=== PATIENT | male | born 1940 | race Caucasian/White ===

== ENCOUNTER 2018-03-27 11:01 | Observation (INO) | payer MEDICARE, SELFPAY ==
[2018-03-21 15:09] LABS: Hematocrit 40.8 % (40-54); Hemoglobin 13.6 g/dl (13.0-16.5); Mean Corp Hgb Conc 33.3 g/gl (32-36); Mean Corpuscular Hgb 29.1 pg (27.0-32.0); Mean Corpuscular Volume 87.2 fL (80-94); Mean Platelet Vol. 10.3 fl (6.2-12.0); Platelet Count 203 K/mm3 (150-450); RBC Distribution Width CV 12.9 % (11.6-14.6); RBC Distribution Width SD 41.2 fl (35.1-43.9); Red Blood Count 4.68 M/mm3 (4.6-6.2); White Blood Count 6.3 K/mm3 (4.4-11.0)
[2018-03-21 15:15] LABS: Scan Indicated on CBC? Y/N NO
[2018-03-21 15:44] LABS: Anion Gap 8 (5-15); BUN 23 mg/dL (7-18); BUN/Creat Ratio 18.7 RATIO (10-20); Calcium,Total 8.5 mg/dL (8.5-10.1); Chloride 108 mmol/L (98-107); Creatinine, Serum 1.23 mg/dL (0.70-1.30); EST Glomerular Filtration Rate 61 mL/min (>60); Est Glom Filt Rate - Afr Amer 73 mL/min (>60); Glucose 124 mg/dL (74-106); Sodium Level 143 mmol/L (136-145)
[2018-03-27] VITALS (11 sets, daily range): BP systolic 121–148; BP diastolic 61–76; PULSE 52–67; RESP 16–18; TEMP 36.4–37.4; O2SAT 92–99; BMI 32.3
[2018-03-27] MEDS: Cefazolin 2 GM in 0.9% Normal Saline 100 ML IV (10:25)
[2018-03-27] MEDS: Bupivacaine Mpf 0.5% 30 ML VIAL (10:25)
[2018-03-27] MEDS: BUPIVACAINE LIPOSOME/PF 20 ML VIAL OPERA.SITE (10:49)
--- NOTE | 2018-03-27 11:05 | PCM.OPRPT ---
Problem List (1) Recurrent ventral incisional hernia Status: Acute Report of Operation Date of Procedure: 03/27/18 Pre-Operative Diagnosis: Recurrent epigastric ventral incisional hernia Post-Operative Diagnosis: Recurrent epigastric ventral incisional hernia. Extensive intra-abdominal adhesions Surgery/Procedure Performed:: Extensive laparoscopic lysis of adhesions. Laparoscopic ventral incisional herniorrhaphy with Ventra lite ST mesh reference #[id number]. Lot number [id number]. Expiry date 12/15/2018. Secure strap lot number [id number] expiry date 12/08/2019. Secure strap lot number [id number] expiry date 12/08/2019 Description of Surgical Findings:: Timeout and informed consent was obtained. 77-year-old gentleman taken the operative room. He was placed on the table. He had one general endotracheal intubation anesthesia. The abdomen was sterilely prepped draped. Ioban drape was used as well. Ancef 2 g given intravenous preoperatively. 0.5% Marcaine was used as local anesthetic. Skin sites were pre-anesthetized. 23 cc was used. At the end of the case I performed a tap block using Exparel diluted to 60 cc with saline. A transverse incision was made directly overlying the palpable mass sharp dissection carried down through subcu tissue hernia sac was encountered and was sized to his omentum within this was freed and then it became apparent upon palpation that were extensive intra-abdominal adhesions. I placed a Wright catheter. I placed 3 Fusselman reports in the left abdomen and then later on to family reports a right abdomen there were extensive adhesions of omentum to the anterior abdominal wall and evidence of the previous supraumbilical mesh repair. There was some transverse colon that was identified slightly elevated but fortunately not densely adherent to the abdominal wall. Using a harmonic scalpel extensive laparoscopic lysis of adhesions ensued. Lysis of adhesions time 60 minutes. After extensively lysing adhesions had the omentum completely freed from the abdominal wall. I could see the previous mesh repair in the supraumbilical area. That appear to be intact the new defect was superior to it difficult to decipher the extent of the weakness. I elected to utilize a ventral light ST mesh, 19.8 x 22.9 cm. 4 corner sutures of 2-0 Prolene was placed. The mesh was furled and placed through the S sign. It was unfurled. Using a GraNee needle I piercing of the mesh up to the abdominal wall. I then secured the periphery of the mesh with secure strap. A total of 2 separate units were utilized. This allowed me to secure the periphery and to complete the inner portions of the mesh to inhibit seroma formation. Prior to completely fixing the mesh I remove the us on an close that fascial incision with several interrupted simple 0 Nurolon stitches. There was good coverage by the mesh good approximation. I then irrigated the mesh with saline the activated surface. I then under laparoscopic visualization performed a tap block this was performed at the superior edge of the mesh and then in the left subcostal and left upper quadrant abdominal areas. I visualized what I felt was the transversalis fascia pulled the needle back slightly to infiltrate the junction of the transversalis and the obliques. A total of 60 cc of the x-ray was utilized in its diluted quantity. I inspected and noted that the omentum was in good position the mesh was in good position trochars were removed under visualization. The abdomen was allowed to deflate his CO2. Skin edges approximated up to 4 Monocryl subdermal stitches. Steri-Strips Telfa and OpSite dressings applied. Sponge instrument and needle counts were reported to the surgeon to be correct. Blood loss was minimal. He tolerated the procedure well was taken to the recovery area in satisfactory condition. No apparent complication. Specimens none. Drains none. Blood loss minimal. Keyon Marquez M.D., F.A.C.S. Type of Anesthesia:: General Anesthesiologist: Prasanna Gibbons
--- NOTE | 2018-03-27 11:13 | OP.PCM_ITS ---
Problem List (1) Recurrent ventral incisional hernia Status: Acute Report of Operation Date of Procedure: 03/27/18 Pre-Operative Diagnosis: Recurrent epigastric ventral incisional hernia Post-Operative Diagnosis: Recurrent epigastric ventral incisional hernia. Extensive intra-abdominal adhesions Surgery/Procedure Performed:: Extensive laparoscopic lysis of adhesions. Laparoscopic ventral incisional herniorrhaphy with Ventra lite ST mesh reference #[id number]. Lot number [id number]. Expiry date 12/15/2018. Secure strap lot number [id number] expiry date 12/08/2019. Secure strap lot number [id number] expiry date 12/08/2019 Description of Surgical Findings:: Timeout and informed consent was obtained. 77-year-old gentleman taken the operative room. He was placed on the table. He had one general endotracheal intubation anesthesia. The abdomen was sterilely prepped draped. Ioban drape was used as well. Ancef 2 g given intravenous preoperatively. 0.5% Marcaine was used as local anesthetic. Skin sites were pre-anesthetized. 23 cc was used. At the end of the case I performed a tap block using Exparel diluted to 60 cc with saline. A transverse incision was made directly overlying the palpable mass sharp dissection carried down through subcu tissue hernia sac was encountered and was sized to his omentum within this was freed and then it became apparent upon palpation that were extensive intra-abdominal adhesions. I placed a Wright catheter. I placed 3 Fusselman reports in the left abdomen and then later on to family reports a right abdomen there were extensive adhesions of omentum to the anterior abdominal wall and evidence of the previous supraumbilical mesh repair. There was some transverse colon that was identified slightly elevated but fortunately not densely adherent to the abdominal wall. Using a harmonic scalpel extensive laparoscopic lysis of adhesions ensued. Lysis of adhesions time 60 minutes. After extensively lysing adhesions had the omentum completely freed from the abdominal wall. I could see the previous mesh repair in the supraumbilical area. That appear to be intact the new defect was superior to it difficult to decipher the extent of the weakness. I elected to utilize a ventral light ST mesh, 19.8 x 22.9 cm. 4 corner sutures of 2-0 Prolene was placed. The mesh was furled and placed through the S sign. It was unfurled. Using a GraNee needle I piercing of the mesh up to the abdominal wall. I then secured the periphery of the mesh with secure strap. A total of 2 separate units were utilized. This allowed me to secure the periphery and to complete the inner portions of the mesh to inhibit seroma formation. Prior to completely fixing the mesh I remove the us on an close that fascial incision with several interrupted simple 0 Nurolon stitches. There was good coverage by the mesh good approximation. I then irrigated the mesh with saline the activated surface. I then under laparoscopic visualization performed a tap block this was performed at the superior edge of the mesh and then in the left subcostal and left upper quadrant abdominal areas. I visualized what I felt was the transversalis fascia pulled the needle back slightly to infiltrate the junction of the transversalis and the obliques. A total of 60 cc of the x-ray was utilized in its diluted quantity. I inspected and noted that the omentum was in good position the mesh was in good position trochars were removed under visualization. The abdomen was allowed to deflate his CO2. Skin edges approximated up to 4 Monocryl subdermal stitches. Steri-Strips Telfa and OpSite dressings applied. Sponge instrument and needle counts were reported to the surgeon to be correct. Blood loss was minimal. He tolerated the procedure well was taken to the recovery area in satisfactory condition. No apparent complication. Specimens none. Drains none. Blood loss minimal. Keyon Marquez M.D., F.A.C.S. Type of Anesthesia:: General Anesthesiologist: Prasanna Gibbons
[2018-03-27] MEDS: Lactated Ringers 1,000 ML 60 ML IV (12:58)
[2018-03-27] MEDS: Pantoprazole Sodium 40 MG Tablet PO (17:21)
[2018-03-27] MEDS: HYDROcodone Bitartrate/Apap 5/325 Tablet PO ×2 (18:55→23:29)
--- NOTE | 2018-03-27 20:09 | PCM.PN.BLA ---
Progress Note 77-year-old gentleman. Status post extensive laparoscopic lysis of adhesions and lap scopic ventral incisional hernia repair earlier today. He is doing well. He is more comfortable. He has been able to ambulate a short distance. Some slight burping. He is tolerating clear liquids. He is voiding well. No distinct flatus. Physical exam Abdomen softly distended. Laparoscopic incisions are clean. We will encourage mobilization. Continue with medical management. Hopeful discharge tomorrow. Keyon Marquez M.D., F.A.C.S.
[2018-03-27] MEDS: Atorvastatin Calcium 10 MG Tablet PO (22:39)
[2018-03-28] MEDS: HYDROcodone Bitartrate/Apap 5/325 Tablet PO ×2 (04:09→09:09)
[2018-03-28 05:30] VITALS: BP 149/71; PULSE 60; RESP 16; TEMP 36.4; O2SAT 98
--- NOTE | 2018-03-28 05:38 | PCM.PN.SRG ---
Patient Problems: Active and Suspected Problems (Last Updated 02/28/18 @ 10:42 by Diandra Hillman) Recurrent ventral incisional hernia (Acute) Subjective: Pt is progressing very well. Pos. flatus - Physical Exam General: Alert, Oriented x3, Cooperative, No apparent distress Abdomen: Soft, Non Tender, Hypoactive Bowel Sounds, Distended Vital Signs Temp Pulse Resp BP Pulse Ox 98.8 F 67 16 138/72 H 97 03/27/18 23:20 03/27/18 23:20 03/27/18 23:20 03/27/18 23:20 03/27/18 23:20 Oxygen Flow Rate (L/min) 2 Oxygen Delivery Method Room Air Weight: 212 lb 4.882 oz Body Mass Index (BMI) 32.3 Intake and Output for Last 24 Hours 03/26/18 03/27/18 03/28/18 23:59 23:59 23:59 Intake Total 2319 / 4179 577 / 577 Balance 2499 / 2494 577 / 577 Medical Necessity - Tobacco Use Smoking Status: Never smoker Assessment/Plan All Active Problems (Last Updated 02/28/18 @ 10:42 by Diandra Hillman) Recurrent ventral incisional hernia (Acute) Good progress Will advance diet and discharge
[2018-03-28] MEDS: Enoxaparin 40 MG/0.4 ML Syringe SC (05:45)
--- NOTE | 2018-03-28 06:17 | PCM.DC.HER ---
Discharge Diet: Light diet - advance as tolerated Discharge Activity: Return to Normal Activity, May Not Drive - for 2-3 days or while taking narcotic pain meds., May Shower - with the bandage in place 1-2 days after surgery. Lifting Restrictions: 20 pounds for 8 weeks. Additional Activity Instructions:: Climbing stairs is fine, walking is encouraged. Sitting in bed may be uncomfortable. Sitting up using your lateral muscles (sitting up sideways) is usually more comfortable. Do not drive, work heavy equipment of sign legal documents for 24 hours. If your hernia repair was an ingunial repair, you may have scrotal swelling, an ice pack and/or athletic support can provide more comfort. Pain medications may cause nausea, you should typically eat light foods as you take your pain medications. Pain medications may also cause constipation. If you have difficulty with this, discuss with your doctor. Call your doctor if your incision/area has: Continuous Slow Oozing, Sudden Increased Bleeding, Increased Pain/ Swelling, Increased Redness, Foul Smelling Discharge Call your doctor if you observe: Fever of 101 or Higher Suture Line Care: Avoid Pulling/Pushing, Avoid Pinching/Bending Change Dressing in (Days):: 3 - Leave steri-strips for 1 week. May protect with a guaze bandaid. Cleanse incision/area with: Keep Dressing Clean & Dry Allergies/Adverse Reactions: Allergies Tetanus Vaccines and Toxoid [Tetanus Vaccines & Toxoid] Allergy (Verified 03/27/18 07:52) Swelling Medications to take at Discharge Omeprazole [Prilosec] 40 mg PO DINNER 06/27/16 Triamterene 37.5MG/Hctz 25MG [Dyazide (G)] 1 cap PO DAILY 06/27/16 atorvastatin 10 mg tablet 10 mg PO QHS 02/28/18 Hydrocodone Bitart/Apap 5-325 [[place] 5MG-325MG] 1 tablet PO Q6H PRN PRN 3 Days #10 tablet 03/27/18 The following prescriptions were given: Hydrocodone Bitart/Apap 5-325 [[place] 5MG-325MG] 1 tablet PO Q6H PRN PRN 3 Days #10 tablet PRN Reason: Pain Primary Care Physician: Matthew Cobos MD [Primary Care Provider] - Test Results: Test results from this visit will be discussed in further detail at your follow-up appointment, if applicable. Please Follow Up With: Bri Metcalf PA-C - [phone] When: 10 days
[2018-03-28] MEDS: Polyethylene Glycol 3350 17 GM PACKET PO (06:31)
[2018-03-28 09:05] VITALS: BP 141/60; PULSE 72; RESP 18; TEMP 36.8; O2SAT 95
== END 2018-03-28 10:20 | disposition home or self-care (01) ==
LOC: MS3 03-28 07:33
PROVIDERS: Admitting Provider Surgery; Family Provider Internal Medicine; PCP Internal Medicine; Visit Provider Surgery
PROC: 0WQF4ZZ Repair Abdominal Wall, Percutaneous Endoscopic Approach (ICD-10-PCS; CPT 49329; principal; 2018-03-27 08:55)
DX: K43.2 Incisional hernia without obstruction or gangrene (principal); K66.0 Peritoneal adhesions (postprocedural) (postinfection); Z79.899 Other long term (current) drug therapy; I10 Essential (primary) hypertension; M19.90 Unspecified osteoarthritis, unspecified site; K21.9 Gastro-esophageal reflux disease without esophagitis; E78.5 Hyperlipidemia, unspecified
CPT/HCPCS: 00752; 49329; 49656; 36415; 80048; 85027; 96372; 99218; J7120; C1781; G0378; G0379; J2405

== ENCOUNTER → 2018-07-18 14:08 | Outpatient (CLI) | payer MEDICARE, SELFPAY ==
--- NOTE | 2018-07-18 14:24 | EKG12_ITS ---
Test Reason : PREOP Blood Pressure : / mmHG Vent. Rate : 059 BPM Atrial Rate : 059 BPM P-R Int : 186 ms QRS Dur : 094 ms QT Int : 420 ms P-R-T Axes : -09 -06 017 degrees QTc Int : 415 ms Sinus bradycardia Otherwise normal ECG Confirmed by LETY ROBLES, KESHAWN ([id number]), state editor CHAGO BAPTISTE ([id number] on 07/19/2018 2:32:04 PM Referred By: Norberto Lebron Confirmed By:KESHAWN DAVIDSON MD
[2018-07-18 14:34] LABS: Hematocrit 41.9 % (40-54); Mean Corp Hgb Conc 33.4 g/gl (32-36); Mean Corpuscular Hgb 29.1 pg (27.0-32.0); Mean Corpuscular Volume 87.1 fL (80-94); Mean Platelet Vol. 9.3 fl (6.2-12.0); Platelet Count 210 K/mm3 (150-450); RBC Distribution Width SD 41.5 fl (35.1-43.9); Red Blood Count 4.81 M/mm3 (4.6-6.2); White Blood Count 6.6 K/mm3 (4.4-11.0)
[2018-07-18 14:37] LABS: Scan Indicated on CBC? Y/N NO
[2018-07-18 14:49] LABS: Anion Gap 5 (5-15); BUN 27 mg/dL (7-18); BUN/Creat Ratio 23.5 RATIO (10-20); Calcium,Total 8.5 mg/dL (8.5-10.1); Chloride 106 mmol/L (98-107); Creatinine, Serum 1.15 mg/dL (0.70-1.30); EST Glomerular Filtration Rate 66 mL/min (>60); Est Glom Filt Rate - Afr Amer 79 mL/min (>60); Glucose 119 mg/dL (74-106); Potassium 4.1 mmol/L (3.5-5.1); Sodium Level 139 mmol/L (136-145)
--- OUTSIDE RECORDS SUMMARY | 2018-09-12 19:18 | XMS RPT_ITS ---
:1940 Author Organization OHIP Care Team Providers Name Role Phone TATY WILLAMS (LOAD PLANNER) Attending Unavailable MATTHEW CARRILLO Referring Unavailable TAYT WILLAMS (LOAD PLANNER) Referring Unavailable MATTHEW CARRILLO Attending Unavailable MATTHEW CARRILLO Referring Unavailable MATTHEW CARRILLO Referring Unavailable RITA JUÁREZ (RING FACER) Attending Unavailable MATTHEW CARRILLO Referring Unavailable FERNANDO CANO Admitting Unavailable FERNANDO CANO Attending Unavailable RITA JUÁREZ (RING FACER) Referring Unavailable OLDER, TATY (LOAD PLANNER) Attending Unavailable OLDER, TATY (LOAD PLANNER) Referring Unavailable CARRILLO, JERARDO Attending Unavailable OLDER, TATY (LOAD PLANNER) Attending Unavailable OLDER, TATY (LOAD PLANNER) Referring Unavailable OLDER, TATY (LOAD PLANNER) Referring Unavailable OLDER, TATY (LOAD PLANNER) Referring Unavailable Cebul, Keyon Attending Unavailable Carrillo, Matthew Referring Unavailable Carrillo, Matthew Primary Care Unavailable Cebul, Keyon Attending Unavailable Cebul, Keyon Referring Unavailable Carrillo, Matthew Primary Care Unavailable Cebul, Keyon Admitting Unavailable Bri Metcalf PA-C Attending Unavailable Carrillo, Matthew Referring Unavailable Carrillo, Matthew Primary Care Unavailable Cezulema, Keyon Attending Unavailable Knpam, Norberto Attending Unavailable Norberto Lebron Referring Unavailable Carrillo, Matthew Primary Care Unavailable PROBLEMS PROBLEMS DATE TYPE CONDITION / CODE ATTENDING STATUS SOURCE 07/18/2018 Unknown Z01.818 - Encounter oNrberto Lebron Active [facility] for other [facility] preprocedural Hospital examination / Repository Z01.818(ICD-10) 03/28/2018 Unknown G89.18 - Other acute Cebul, Keyon Active [facility] postprocedural pain Community / G89.18(ICD-10) Hospital Repository 05/09/2018 Unknown K43.2 - Incisional Cebul, Keyon Active [facility] hernia without Community obstruction or Hospital gangrene / Repository K43.2(ICD-10) 05/09/2018 Unknown K66.0 - Peritoneal Cebul, Keyon Active [facility] adhesions Community (postprocedural) Hospital (postinfection) / Repository K66.0(ICD-10) 03/21/2018 Active Cough / R05(ICD-10) NA Active [facility] Main [place] Repository 12/14/2017 Active Mobley's esophagus CANO, 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, [facility] Clinic Main unspecified / [place] K22.719(ICD-10) Repository 08/22/2011 Active Hyperlipidemia, NA Active [place] unspecified / Clinic Main E78.5(ICD-10) [place] Repository 11/09/2017 Active 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, Clinic Main unspecified / [place] N28.9(ICD-10) Repository 11/09/2017 Active Impaired fasting Active [place] glucose / Clinic Main R73.01(ICD-10) [place] Repository 08/09/2017 Active Localized edema / NA Active [place] R60.0(ICD-10) Clinic Main [place] Repository 08/09/2017 Active Pain in right lower NA Active [place] leg / Clinic Main M79.661(ICD-10) [place] Repository PROCEDURES PROCEDURES No Procedure Records FoundRESULTS RESULTS 12 LEAD ELECTROCARDIOGRAM Observed: 07/19/2018 Status: F Source: [place] 2:32 PM [facility] REPOSITORY [facility] Cardiovascular Services [address] [place] [address] 12 Lead EKG 07/18/18 1437 MR#: [id number] Acct: [id number] Name: KEVEN SALMERON Rep #: [id number] : 1940 78 From: Liam Arzola MD Attending Dr: Norberto Lebron DO Status: REG CLI Ordering Dr: Norberto Lebron DO Date: 07/18/18 Location: LAB Sex: M C Admitted: Test Reason : PREOP Blood Pressure : / mmHG Vent. Rate : 059 BPM Atrial Rate : 059 BPM P-R Int : 186 ms QRS Dur : 094 ms QT Int : 420 ms P-R-T Axes : -09 -06 017 degrees QTc Int : 415 ms Sinus bradycardia Otherwise normal ECG Confirmed by LETY ROBLES, LIAM ([id number]), video tape editor CHAGO BAPTISTE ([id number]) on 07/19/2018 2:32:04 PM Referred By: Norberto Lebron Confirmed By:LIAM ARZOLA MD 07/19/18 1432 Date Liam Arzola MD CC: Norberto Lebron DO; Matthew Carrillo MD Signed CBC-COMPLETE BLOOD CNT Collected: 07/18/2018 Status: F Source: [facility] NO DIFF 2:13 PM [facility] REPOSITORY TYPE CODE TESTS RESULT OUT OF RANGE REFERENCE UNITS LAB L100.1000 4.4-11.0 K/mm3 Normal WBC 6.6 LAB L100.1200 4.6-6.2 M/mm3 Normal RBC 4.81 LAB L100.1300 13.0-16.5 g/dl Normal HGB 14.0 LAB L100.1400 40-54 % Normal HCT 41.9 LAB L100.1500 80-94 fL Normal MCV 87.1 LAB L100.1600 27.0-32.0 pg Normal MCH 29.1 LAB L100.1700 32-36 g/gl Normal MCHC 33.4 LAB L100.1810 11.6-14.6 % Normal RDW CV 13.0 LAB L100.1820 35.1-43.9 fl Normal RDW SD 41.5 LAB L100.1900 150-450 K/mm3 Normal PLT 210 LAB L100.2000 6.2-12.0 fl Normal MPV 9.3 Performed By: #### L100.0500 #### [facility] [address] [place], [address] BASIC METABOLIC Collected: 07/18/2018 Status: F Source: [place] PROFILE (BMP) 2:13 PM [facility] REPOSITORY TYPE CODE TESTS RESULT OUT OF RANGE REFERENCE UNITS LAB L501.0100 74-106 mg/dL High GLU 119 Result Comment: Fasting Glucose result from 100 to 125 mg/dL suggests IMPAIRED HOMEOSTASIS per A.D.A. criteria. Please note revised GLUCOSE reference range effective 2017. LAB L501.1000 7-18 mg/dL High BUN 27 LAB L501.1100 0.70-1.30 mg/dL Normal CREAT,SERUM 1.15 Result Comment: The validity of the calculated GFR AND GFRAA in patients over 70 years has not been determined. Clinical correlation is essential. LAB L501.1110 >60 mL/min Normal EST GFR 66 Result Comment: Non- GFR Calc LAB L501.1115 >60 mL/min Normal EST GFR - AA 79 Result Comment: GFR Calc LAB L501.1300 10-20 RATIO High BUN/CRE 23.5 LAB L501.2200 8.5-10.1 mg/dL CA Normal 8.5 LAB L501.5300 136-145 mmol/L NA Normal 139 LAB L501.5600 3.5-5.1 mmol/L K Normal 4.1 LAB L501.5900 98-107 mmol/L CL Normal 106 LAB L501.6100 21.0-32.0 mmol/L Normal CO2 28.0 LAB L501.6200 5-15 Normal GAP 5 Performed By: #### L500.2500 #### [facility] [address] [place], [address] PROGRESS Observed: 07/15/2018 Status: COMPLETED Source: [place] 1:59 PM [facility] REPOSITORY HNO ID: [id number] Author: Taty (Andrew) Older Service: (none) Author Type: Nurse Practitioner Type: Progress Notes Filed: 07/15/2018 2:29 PM Note Text: CC: Patient presents with: chronic cough HPI Keven Salmeron is a 78 year old male who presents today for chronic cough since February. Initially seen on 03/21 for this. Chest x- ray negative. Cough attributed to post nasal drip, started on Flonase. At follow-up with PCP cough had not improved. Diagnosed with bronchitis with bronchospasm and prescribed Singulair and Albuterol. Minor improvement with Singulair. Used Albuterol inhaler one time before going to bed with minor improvement. Today patient reports cough continues, productive with clear sputum. Worse at night, especially if he were to eat late in the evening. Positive for wheezing that is getting worse, shortness of breath with moderate exertion and post nasal drainage. Propping himself up on two pillows to sleep does help somewhat. No history of seasonal or environmental allergies. No itchy/watery eyes or sore throat. No history of asthma or respiratory disease History of GERD and Mobley's esophagus. No heartburn/reflux symptoms other than worsening cough if he eats too late at night. Has been on Prevacid for years. Has never smoked. No second hand smoke exposure. No environmental exposures. No cardiac history REVIEW OF SYSTEMS General: no fevers, no chills, no night sweats, no recurrent infections, no change in energy and no significant changes in weight Respiratory: no hemoptysis Cardiovascular: no chest pain, no chest pressure, no palpitations, no swelling and no decrease in exercise tolerance PAST MEDICAL HISTORY Diagnosis Date - Mobley's esophagus 05/05/2010 - Closed fracture of shaft of metacarpal bone(s) 09/18/2011 - DIVERTICULOSIS COLON - NO HEMORRHAGE 11/28/2005 - Edema 03/13/2006 - Esophageal reflux 10/16/2008 - Esophagitis, unspecified - Essential hypertension 04/25/2016 - GENERAL OSTEOARTHROSIS 1998 Left knee. Arthroscopy 1998. - INT HEMORRHOID W/O COMPL 11/06/2005 Restarted Proctocream in - - LEG VARICOSITY W INFLAM 03/13/2006 - Osteoarthritis of left knee 04/25/2016 - POLYP COLON 11/28/2005 - Snoring - Stricture and stenosis of esophagus PAST SURGICAL HISTORY Procedure Laterality Date - APPENDECTOMY 1955 - COLONOSCOP W/ OR W/O [facility] SPEC 09/06/10 - COLONOSCOP W/ OR W/O [facility] SPEC N/A 11/23/2016 - COLONOSCOPY W/BX 11/27/05 Two small polyps, diverticulosis - EGD W/O OR W/BRUSH/WASH 01/22/2004 EGD - EGD W/O OR W/BRUSH/WASH 02/02/2014 EGD - EGD W/O OR W/BRUSH/WASH 02/16/14 EGD repeat 2 years - EGD W/O OR W/BRUSH/WASH 12/02/2015 EGD repeat 1 year - EGD W/O OR W/BRUSH/WASH 12/24/2017 EGD - EGD W/REM FB STOMACH/DUOD 01/14/07 [facility] ER - ESOPH W/O [facility] SPEC BALLOON DIL 09/06/10 with bx - HEMORRHOIDECT INTER/EXTER SIMP 11/30/05 - KNEE SCOPE,DIAGNOSTIC 1998 Arthroscopy, knee, Left - LX REPAIR RECURRENT VENTRAL HERNIA 03/27/2018 - DE ANESTH,REPAIR UPPER ABD HERNIA NOS 2001 - TOTAL KNEE REPLACEMENT Left 07/10/2016 Knee replacement, total - VASECTOMY 02/24/09 ALLERGIES Tetanus Vaccines And Toxoid MEDICATIONS albuterol HFA (PROVENTIL HFA, VENTOLIN HFA) 90 mcg/actuation inhaler Inhale 2 Puffs as instructed every 6 hours as needed (cough, wheezing). atorvastatin (LIPITOR) 10 mg tablet Take 1 tablet by mouth daily at bedtime. For cholesterol. triamterene-hydrochlorothiazide (DYAZIDE) 37.5-25 mg per capsule Take 1 capsule by mouth once daily. Omeprazole (PRILOSEC) 40 mg capsule Take 1 capsule by mouth once daily. Compression Knee Highs KNEE HIGH COMPRESSION STOCKINGS 20- 30 MM HG. DX: ICD9: 454.1, ICD10: I83.12, I83.11. ICD9: 459.30, ICD10: I87.301 montelukast (SINGULAIR) 10 mg tablet Take 1 tablet by mouth daily at bedtime. FAMILY HISTORY Problem Relation Age of Onset - Stroke Father - Coronary Artery Disease Father at age 84 - Hypertension Mother age 92, natural causes. - other (Parkinsons) Brother age 84 Social History Substance Use Topics - Smoking status: Never Smoker - Smokeless tobacco: Never Used - Alcohol use Yes Comment: 2 glasses/month PHYSICAL EXAM BP 150/88 Pulse 71 Temp 36.4 ?C (97.6 ?F) (Temporal Artery) Resp 16 Wt 102.1 kg (225 lb) SpO2 96% BMI 34.21 kg/m? General Appearance: well appearing, in no acute distress, alert Eyes: conjunctiva pink and moist, no icterus, sclera white, non-injected Ears: external ears normal to inspection and palpation, canals clear, Left tympanic membrane normal. , Right tympanic membrane normal Nose/sinus: Nares normal. Septum midline. Mucosa normal. No drainage., No sinus tenderness Neck: Neck supple, No adenopathy Oropharynx: lips normal without lesions, tongue midline and normal, soft palate, uvula, and tonsils normal Lymph nodes: No supraclavicular lymphadenopathy Lungs: lungs clear to auscultation. No wheezing, rhonchi, rales Heart: RRR without murmur, gallop, or rubs. No ectopy Ext: Trace pitting edema BLE, good distal pulses ASSESSMENT/PLAN: 1. Chronic cough - ICD9: 786.2, ICD10: R05 (primary diagnosis) Differential diagnoses includes post nasal drip secondary to environmental allergies, cough variant asthma, GERD Resume Singulair and Flonase. Albuterol at bedtime and as needed Work-up with: - SPIROMETRY - BASELINE AND POST DILATOR - LUNG VOLUMES - LUNG DIFFUSION CAPACITY (DLCO) CONSULT TO ENT for further evaluation and recommendations Follow-up pending results of work-up 2. Post-nasal drip - ICD9: 784.91, ICD10: R09.82 As above - CONSULT TO ENT Prescription instructions reviewed with patient as applicable. Potential red flag symptoms discussed with the patient. Reviewed appropriate action plan to take if red flag symptoms occur. Patient agreeable to treatment plan. Taty Willams APRN.LOAD PLANNER CNOV Observed: 07/15/2018 Status: COMPLETED Source: [place] 1:40 PM [facility] [place] REPOSITORY Office Visit (INTMWS) KEVEN SALMERON ([id number]) 1940 M Date Time Provider Department 07/15/18 1:40 PM [facility] (ANDREW) INTMWS During your visit today, we recorded the following information about you: Temperature Pulse Respiration Blood pressure 97.6 degrees 71/minute 16/minute 150/88 Weight 102.1 kg Taty Willams APRN.CNP 07/15/2018 2:29 PM Signed CC: Patient presents with: chronic cough HPI Keven Salmeron is a 78 year old male who presents today for chronic cough since February. Initially seen on 03/21 for this. Chest x-ray negative. Cough attributed to post nasal drip, started on Flonase. At follow- up with PCP cough had not improved. Diagnosed with bronchitis with bronchospasm and prescribed Singulair and Albuterol. Minor improvement with Singulair. Used Albuterol inhaler one time before going to bed with minor improvement. Today patient reports cough continues, productive with clear sputum. Worse at night, especially if he were to eat late in the evening. Positive for wheezing that is getting worse, shortness of breath with moderate exertion and post nasal drainage. Propping himself up on two pillows to sleep does help somewhat. No history of seasonal or environmental allergies. No itchy/watery eyes or sore throat. No history of asthma or respiratory disease History of GERD and Mobley's esophagus. No heartburn/reflux symptoms other than worsening cough if he eats too late at night. Has been on Prevacid for years. Has never smoked. No second hand smoke exposure. No environmental exposures. No cardiac history REVIEW OF SYSTEMS General: no fevers, no chills, no night sweats, no recurrent infections, no change in energy and no significant changes in weight Respiratory: no hemoptysis Cardiovascular: no chest pain, no chest pressure, no palpitations, no swelling and no decrease in exercise tolerance PAST MEDICAL HISTORY Diagnosis Date - Mobley's esophagus 05/05/2010 - Closed fracture of shaft of metacarpal bone(s) 09/18/2011 - DIVERTICULOSIS COLON - NO HEMORRHAGE 11/28/2005 - Edema 03/13/2006 - Esophageal reflux 10/16/2008 - Esophagitis, unspecified - Essential hypertension 04/25/2016 - GENERAL OSTEOARTHROSIS 1998 Left knee. Arthroscopy 1998. - INT HEMORRHOID W/O COMPL 11/06/2005 Restarted Proctocream in 09-28 - LEG VARICOSITY W INFLAM 03/13/2006 - Osteoarthritis of left knee 04/25/2016 - POLYP COLON 11/28/2005 - Snoring - Stricture and stenosis of esophagus PAST SURGICAL HISTORY Procedure Laterality Date - APPENDECTOMY 1955 - COLONOSCOP W/ OR W/O [facility] SPEC 09/06/10 - COLONOSCOP W/ OR W/O [facility] SPEC N/A 11/23/2016 - COLONOSCOPY W/BX 11/27/05 Two small polyps, diverticulosis - EGD W/O OR W/BRUSH/WASH 01/22/2004 EGD - EGD W/O OR W/BRUSH/WASH 02/02/2014 EGD - EGD W/O OR W/BRUSH/WASH 02/16/14 EGD repeat 2 years - EGD W/O OR W/BRUSH/WASH 12/02/2015 EGD repeat 1 year - EGD W/O OR W/BRUSH/WASH 12/24/2017 EGD - EGD W/REM FB STOMACH/DUOD 01/14/07 [facility] ER - ESOPH W/O [facility] SPEC BALLOON DIL 09/06/10 with bx - HEMORRHOIDECT INTER/EXTER SIMP 11/30/05 - KNEE SCOPE,DIAGNOSTIC 1998 Arthroscopy, knee, Left - LX REPAIR RECURRENT VENTRAL HERNIA 03/27/2018 - DE ANESTH,REPAIR UPPER ABD HERNIA NOS 2001 - TOTAL KNEE REPLACEMENT Left 07/10/2016 Knee replacement, total - VASECTOMY 02/24/09 ALLERGIES Tetanus Vaccines And Toxoid MEDICATIONS albuterol HFA (PROVENTIL HFA, VENTOLIN HFA) 90 mcg/actuation inhaler Inhale 2 Puffs as instructed every 6 hours as needed (cough, wheezing). atorvastatin (LIPITOR) 10 mg tablet Take 1 tablet by mouth daily at bedtime. For cholesterol. triamterene-hydrochlorothiazide (DYAZIDE) 37.5-25 mg per capsule Take 1 capsule by mouth once daily. Omeprazole (PRILOSEC) 40 mg capsule Take 1 capsule by mouth once daily. Compression Knee Highs KNEE HIGH COMPRESSION STOCKINGS 20- 30 MM HG. DX: ICD9: 454.1, ICD10: I83.12, I83.11. ICD9: 459.30, ICD10: I87.301 montelukast (SINGULAIR) 10 mg tablet Take 1 tablet by mouth daily at bedtime. FAMILY HISTORY Problem Relation Age of Onset - Stroke Father - Coronary Artery Disease Father at age 84 - Hypertension Mother age 92, natural causes. - other (Parkinsons) Brother age 84 Social History Substance Use Topics - Smoking status: Never Smoker - Smokeless tobacco: Never Used - Alcohol use Yes Comment: 2 glasses/month PHYSICAL EXAM BP 150/88 Pulse 71 Temp 36.4 ?C (97.6 ?F) (Temporal Artery) Resp 16 Wt 102.1 kg (225 lb) SpO2 96% BMI 34.21 kg/m? General Appearance: well appearing, in no acute distress, alert Eyes: conjunctiva pink and moist, no icterus, sclera white, non-injected Ears: external ears normal to inspection and palpation, canals clear, Left tympanic membrane normal. , Right tympanic membrane normal Nose/sinus: Nares normal. Septum midline. Mucosa normal. No drainage., No sinus tenderness Neck: Neck supple, No adenopathy Oropharynx: lips normal without lesions, tongue midline and normal, soft palate, uvula, and tonsils normal Lymph nodes: No supraclavicular lymphadenopathy Lungs: lungs clear to auscultation. No wheezing, rhonchi, rales Heart: RRR without murmur, gallop, or rubs. No ectopy Ext: Trace pitting edema BLE, good distal pulses ASSESSMENT/PLAN: 1. Chronic cough - ICD9: 786.2, ICD10: R05 (primary diagnosis) Differential diagnoses includes post nasal drip secondary to environmental allergies, cough variant asthma, GERD Resume Singulair and Flonase. Albuterol at bedtime and as needed Work-up with: - SPIROMETRY - BASELINE AND POST DILATOR - LUNG VOLUMES - LUNG DIFFUSION CAPACITY (DLCO) CONSULT TO ENT for further evaluation and recommendations Follow-up pending results of work-up 2. Post-nasal drip - ICD9: 784.91, ICD10: R09.82 As above - CONSULT TO ENT Prescription instructions reviewed with patient as applicable. Potential red flag symptoms discussed with the patient. Reviewed appropriate action plan to take if red flag symptoms occur. Patient agreeable to treatment plan. RACHID Carrasco APRN.CNP 07/15/2018 2:16 PM Addendum Resume Singulair and Flonase. Use Albuterol at bedtime and as needed for shortness of breath or coughing spasms [facility] [phone] Referring Provider: SELF [200] Allergies As of Date: 07/15/2018 Noted Allergy Reaction TETANUS VACCINES AND TOXOID 11/06/2005 Date Reviewed: 07/15/2018 Reviewed by: Areli Gray Grapple Crew Leader - Fully Assessed Reason for Visit: chronic cough [Other] Primary Visit Diagnosis:Chronic cough [R05] Other Visit Diagnosis:Post-nasal drip [R09.82] Order(s):SPIROMETRY - BASELINE AND POST DILATOR [4968141] Order #: [id number] FUTURE LUNG VOLUMES [9408539] Order #: [id number] FUTURE LUNG DIFFUSION CAPACITY (DLCO) [0119420] Order #: [id number] FUTURE CONSULT TO ENT [9008] Order #: [id number]: 1 montelukast (SINGULAIR) 10 mg tabletTake 1 tablet by mouth daily at bedtime.Disp: 30 tabletRfl: 2 Prescriptions as of 07/15/2018 Sig: ALBUTEROL SULFATE HFA 90 MCG/* Inhale 2 Puffs as instructed * ATORVASTATIN 10 MG TABLET Take 1 tablet by mouth daily * TRIAMTERENE 37.5 MG-HYDROCHLO* Take 1 capsule by mouth once * OMEPRAZOLE 40 MG CAPSULE,FATOUMATA* Take 1 capsule by mouth once * COMPOUNDED PRESCRIPTION KNEE HIGH COMPRESSION STOCKIN* MONTELUKAST 10 MG TABLET Take 1 tablet by mouth daily * Problem List As Of Date 07/15/2018 Noted Resolved Internal Hemorrhoids without Mention of Complic*INVALID FOR*05/05/2010 More... 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 Esophageal Reflux [K21.9] INVALID FOR* More... More... Sterilization [Z30.2] INVALID FOR*05/05/2010 Esophagitis, unspecified [K20.9] INVALID FOR*11/03/2016 More... More... Closed fracture of shaft of metacarpal bone(s) *INVALID FOR*09/30/2014 Stasis edema [I87.309] INVALID FOR* More... Essential hypertension [I10] INVALID FOR* Osteoarthritis of left knee [M17.12] INVALID FOR* Ventral hernia without obstruction or gangrene *INVALID FOR* Mobley's esophagus with dysplasia [K22.719] INVALID FOR* More... Hyperlipidemia, mixed [E78.2] INVALID FOR* Other instructions from your clinician: Resume Singulair and Flonase. Use Albuterol at bedtime and as needed for shortness of breath or coughing spasms [facility] [phone] Prescriptions ordered this encounter Disp Refills Start End MONTELUKAST 10 MG TABLET 30 t* 2 07/15/2018 Route: ORAL Sig: Take 1 tablet by mouth daily at bedtime. Medications Discontinued During This Encounter montelukast (SINGULAIR) 10 mg tablet 30 t* 0 05/04/2018 07/15/2018 Route: ORAL Sig: Take 1 tablet by mouth daily at bedtime. Disc: Reason for discontinue is not on file. Encounter Status:Closed by TATY WILLAMS CNP on 07/15/18 PROGRESS Observed: 05/04/2018 Status: COMPLETED Source: [place] 4:39 PM [facility] [place] REPOSITORY O ID: [id number] Author: Matthew Carrillo Service: (none) Author Type: Physician Type: Progress Notes Filed: 05/06/2018 12:44 PM Note Text: This note was created using Jangl SMSriter. Subjective Keven Salmeron is a 78 year old male here with persistent cough productive of clear phlegm, wheezing, postnasal drainage since February. He had no acute illness, no allergy symptoms. He saw RING FACER in March and Flonase was recommended with temporary improvement. Chest xray was negative. He then had hernia surgery, and actually improved a few weeks, but was now back. ACTIVE PROBLEM LIST POLYP COLON Esophageal Reflux Stasis Edema Essential Hypertension Osteoarthritis of Left Knee Ventral Hernia Without Obstruction Or Gangrene Mobley's Esophagus With Dysplasia Hyperlipidemia, Mixed PAST SURGICAL HISTORY Procedure Laterality Date - APPENDECTOMY 1955 - COLONOSCOP W/ OR W/O [facility] SPEC 09/06/10 - COLONOSCOP W/ OR W/O [facility] SPEC N/A 11/23/2016 - COLONOSCOPY W/BX 11/27/05 Two small polyps, diverticulosis - EGD W/O OR W/BRUSH/WASH 01/22/2004 EGD - EGD W/O OR W/BRUSH/WASH 02/02/2014 EGD - EGD W/O OR W/BRUSH/WASH 02/16/14 EGD repeat 2 years - EGD W/O OR W/BRUSH/WASH 12/02/2015 EGD repeat 1 year - EGD W/O OR W/BRUSH/WASH 12/24/2017 EGD - EGD W/REM FB STOMACH/DUOD 01/14/07 [facility] ER - ESOPH W/O [facility] SPEC BALLOON DIL 09/06/10 with bx - HEMORRHOIDECT INTER/EXTER SIMP 11/30/05 - KNEE SCOPE,DIAGNOSTIC 1998 Arthroscopy, knee, Left - LX REPAIR RECURRENT VENTRAL HERNIA 03/27/2018 - DE ANESTH,REPAIR UPPER ABD HERNIA NOS 2001 - TOTAL KNEE REPLACEMENT Left 07/10/2016 Knee replacement, total - VASECTOMY 02/24/09 Current Outpatient Prescriptions: atorvastatin (LIPITOR) 10 mg tablet Take 1 tablet by mouth daily at bedtime. For cholesterol. triamterene-hydrochlorothiazide (DYAZIDE) 37.5-25 mg per capsule Take 1 capsule by mouth once daily. Omeprazole (PRILOSEC) 40 mg capsule Take 1 capsule by mouth once daily. Compression Knee Highs KNEE HIGH COMPRESSION STOCKINGS 20- 30 MM HG. DX: ICD9: 454.1, ICD10: I83.12, I83.11. ICD9: 459.30, ICD10: I87.301 montelukast (SINGULAIR) 10 mg tablet Take 1 tablet by mouth daily at bedtime. albuterol HFA (PROVENTIL HFA, VENTOLIN HFA) 90 mcg/actuation inhaler Inhale 2 Puffs as instructed every 6 hours as needed (cough, wheezing). No current facility-administered medications for this visit. Review of Systems Constitutional: Negative. HENT: Positive for postnasal drip. Negative for sinus pain, sinus pressure and sore throat. Respiratory: Positive for cough and wheezing. Negative for choking and chest tightness. Cardiovascular: Negative. Gastrointestinal: Negative. Objective BP 125/74 Pulse 76 Temp 36.6 ?C (97.8 ?F) (Temporal Artery) SpO2 96% Physical Exam Constitutional: No distress. HENT: Nose: Nose normal. Mouth/Throat: Oropharynx is clear and moist. Eyes: Conjunctivae are normal. Neck: No JVD present. Cardiovascular: Normal heart sounds. Pulmonary/Chest: No respiratory distress. He has no decreased breath sounds. He has wheezes. He has rhonchi. He has no rales. Abdominal: No hernia. Musculoskeletal: He exhibits no edema. Lymphadenopathy: He has no cervical adenopathy. Assessment and Plan 1. Bronchitis with bronchospasm - ICD9: 490, ICD10: J20.9 (primary diagnosis) - MONTELUKAST 10 MG TABLET. Discussed medication dosage, usage, goals of therapy, and side effects. Try for one month. Call for refill if effective. - ALBUTEROL SULFATE HFA 90 MCG/ACTUATION AEROSOL INHALER The proper method of use, as well as anticipated side effects, of this inhaler are discussed and demonstrated to the patient. 2. Postnasal drip - ICD9: 784.91, ICD10: R09.82 See above. - MONTELUKAST 10 MG TABLET - ALBUTEROL SULFATE HFA 90 MCG/ACTUATION AEROSOL INHALER 3. Essential hypertension - ICD9: 401.9, ICD10: I10 - good control - Continue current medication(s) - Goal of BP <130/80 4. Need for vaccination - ICD9: V05.9, ICD10: Z23 - INFLUENZA SEASONAL HIGH DOSE AGE 65+ Matthew Carrillo MD PROGRESS Observed: 05/04/2018 Status: COMPLETED Source: [place] 12:04 PM [facility] [place] REPOSITORY O ID: [id number] Author: Melissa [facility] Service: (none) Author Type: (none) Type: Progress Notes Filed: 05/06/2018 12:44 PM Note Text: 78 year old male here for INACTIVATED INFLUENZA VACCINE. [id number] Season Patient is identified by name and date of : [] CONTRAINDICATIONS color enhanced section Age less than 6 months? No Allergy to eggs, chicken, chicken feathers, or chicken dander? No Allergy to thimerosal (a preservative) or formaldehyde? No History of severe reaction to any vaccine component or a previous dose of influenza vaccination? No History of Guillain-Warsaw Syndrome within 6 weeks after a previous influenza vaccine? No Current moderate or severe illness? No Current temperature greater or equal to 100.4F? No History of Bone Marrow Transplant in past 6 months or solid organ transplant in the past 3 months ? No [] VERIFICATION color enhanced section Was the answer Yes for any of the above contraindications? No contraindications present. Acceptable to proceed with vaccine. Patient/guardian agrees the above answers are true to the best of their knowledge? Yes Flu vaccine information sheet given? Yes See immunization activity in [facility] for details of immunizations adminstered today. Patient age: [age] year old For The 1694-3868 Flu Season 6-35 months old: Fluzone 0.25 ml - IM (Preservative Free) 3 years of age: Fluzone 0.5 ml - IM (Preservative Free) 3 years and older: Fluzone 0.5 ml- IM-(with Preservatives) 65+ years old: Fluzone High-Dose 0.5 ml - IM (Preservative Free) REMEMBER: If patient is less than 9 years of age and this is the first vaccine of Influenza to be received in any flu season, they should receive a second dose in one months time. CNOV Observed: 05/04/2018 Status: COMPLETED Source: [place] 11:00 AM [facility] [place] REPOSITORY Office Visit (INTMWS) JARONKEVEN KIDD ([id number]) 1940 M Date Time Provider Department 05/04/18 11:00 AM MATTHEW CARRILLO During your visit today, we recorded the following information about you: Temperature Pulse Blood pressure 97.8 degrees 76/minute 125/74 Melissa Antwon [facility] 05/06/2018 12:44 PM Signed 78 year old male here for INACTIVATED INFLUENZA VACCINE. Season Patient is identified by name and date of : [] CONTRAINDICATIONS color enhanced section Age less than 6 months? No Allergy to eggs, chicken, chicken feathers, or chicken dander? No Allergy to thimerosal (a preservative) or formaldehyde? No History of severe reaction to any vaccine component or a previous dose of influenza vaccination? No History of Guillain-Warsaw Syndrome within 6 weeks after a previous influenza vaccine? No Current moderate or severe illness? No Current temperature greater or equal to 100.4F? No History of Bone Marrow Transplant in past 6 months or solid organ transplant in the past 3 months ? No [] VERIFICATION color enhanced section Was the answer Yes for any of the above contraindications? No contraindications present. Acceptable to proceed with vaccine. Patient/guardian agrees the above answers are true to the best of their knowledge? Yes Flu vaccine information sheet given? Yes See immunization activity in [facility] for details of immunizations adminstered today. Patient age: [age] year old For The Flu Season 6-35 months old: Fluzone 0.25 ml - IM (Preservative Free) 3 years of age: Fluzone 0.5 ml - IM (Preservative Free) 3 years and older: Fluzone 0.5 ml- IM-(with Preservatives) 65+ years old: Fluzone High-Dose 0.5 ml - IM (Preservative Free) REMEMBER: If patient is less than 9 years of age and this is the first vaccine of Influenza to be received in any flu season, they should receive a second dose in one months time. Matthew Carrillo MD 05/06/2018 12:44 PM Signed This note was created using [employer]. Subjective Keven Salmeron is a 78 year old male here with persistent cough productive of clear phlegm, wheezing, postnasal drainage since February. He had no acute illness, no allergy symptoms. He saw RING FACER in March and Flonase was recommended with temporary improvement. Chest xray was negative. He then had hernia surgery, and actually improved a few weeks, but was now back. ACTIVE PROBLEM LIST POLYP COLON Esophageal Reflux Stasis Edema Essential Hypertension Osteoarthritis of Left Knee Ventral Hernia Without Obstruction Or Gangrene Mobley's Esophagus With Dysplasia Hyperlipidemia, Mixed PAST SURGICAL HISTORY Procedure Laterality Date - APPENDECTOMY 1955 - COLONOSCOP W/ OR W/O [facility] SPEC 09/06/10 - COLONOSCOP W/ OR W/O [facility] SPEC N/A 11/23/2016 - COLONOSCOPY W/BX 11/27/05 Two small polyps, diverticulosis - EGD W/O OR W/BRUSH/WASH 01/22/2004 EGD - EGD W/O OR W/BRUSH/WASH 02/02/2014 EGD - EGD W/O OR W/BRUSH/WASH 02/16/14 EGD repeat 2 years - EGD W/O OR W/BRUSH/WASH 12/02/2015 EGD repeat 1 year - EGD W/O OR W/BRUSH/WASH 12/24/2017 EGD - EGD W/REM FB STOMACH/DUOD 01/14/07 [facility] ER - ESOPH W/O [facility] SPEC BALLOON DIL 09/06/10 with bx - HEMORRHOIDECT INTER/EXTER SIMP 11/30/05 - KNEE SCOPE,DIAGNOSTIC 1998 Arthroscopy, knee, Left - LX REPAIR RECURRENT VENTRAL HERNIA 03/27/2018 - DE ANESTH,REPAIR UPPER ABD HERNIA NOS 2002 - TOTAL KNEE REPLACEMENT Left 07/10/2016 Knee replacement, total - VASECTOMY 02/24/09 Current Outpatient Prescriptions: atorvastatin (LIPITOR) 10 mg tablet Take 1 tablet by mouth daily at bedtime. For cholesterol. triamterene-hydrochlorothiazide (DYAZIDE) 37.5-25 mg per capsule Take 1 capsule by mouth once daily. Omeprazole (PRILOSEC) 40 mg capsule Take 1 capsule by mouth once daily. Compression Knee Highs KNEE HIGH COMPRESSION STOCKINGS 20- 30 MM HG. DX: ICD9: 454.1, ICD10: I83.12, I83.11. ICD9: 459.30, ICD10: I87.301 montelukast (SINGULAIR) 10 mg tablet Take 1 tablet by mouth daily at bedtime. albuterol HFA (PROVENTIL HFA, VENTOLIN HFA) 90 mcg/actuation inhaler Inhale 2 Puffs as instructed every 6 hours as needed (cough, wheezing). No current facility-administered medications for this visit. Review of Systems Constitutional: Negative. HENT: Positive for postnasal drip. Negative for sinus pain, sinus pressure and sore throat. Respiratory: Positive for cough and wheezing. Negative for choking and chest tightness. Cardiovascular: Negative. Gastrointestinal: Negative. Objective BP 125/74 Pulse 76 Temp 36.6 ?C (97.8 ?F) (Temporal Artery) SpO2 96% Physical Exam Constitutional: No distress. HENT: Nose: Nose normal. Mouth/Throat: Oropharynx is clear and moist. Eyes: Conjunctivae are normal. Neck: No JVD present. Cardiovascular: Normal heart sounds. Pulmonary/Chest: No respiratory distress. He has no decreased breath sounds. He has wheezes. He has rhonchi. He has no rales. Abdominal: No hernia. Musculoskeletal: He exhibits no edema. Lymphadenopathy: He has no cervical adenopathy. Assessment and Plan 1. Bronchitis with bronchospasm - ICD9: 490, ICD10: J20.9 (primary diagnosis) - MONTELUKAST 10 MG TABLET. Discussed medication dosage, usage, goals of therapy, and side effects. Try for one month. Call for refill if effective. - ALBUTEROL SULFATE HFA 90 MCG/ACTUATION AEROSOL INHALER The proper method of use, as well as anticipated side effects, of this inhaler are discussed and demonstrated to the patient. 2. Postnasal drip - ICD9: 784.91, ICD10: R09.82 See above. - MONTELUKAST 10 MG TABLET - ALBUTEROL SULFATE HFA 90 MCG/ACTUATION AEROSOL INHALER 3. Essential hypertension - ICD9: 401.9, ICD10: I10 - good control - Continue current medication(s) - Goal of BP <130/80 4. Need for vaccination - ICD9: V05.9, ICD10: Z23 - INFLUENZA SEASONAL HIGH DOSE AGE 65+ Matthew Carrillo MD Referring Provider: SELF [200] Allergies As of Date: 05/04/2018 Noted Allergy Reaction TETANUS VACCINES AND TOXOID 11/06/2005 Date Reviewed: 05/04/2018 Reviewed by: Melissa Espana [employer] Leader - Fully Assessed Reason for Visit: Cough [28] Imm/Inj [58] Cmt: Flu Vaccine Reason For Visit History Recorded Primary Visit Diagnosis:Bronchitis with bronchospasm [J20.9] Other Visit Diagnoses:Postnasal drip [R09.82] Essential hypertension [I10] Need for vaccination [Z23] Order(s):montelukast (SINGULAIR) 10 mg tabletTake 1 tablet by mouth daily at bedtime.Disp: 30 tabletRfl: 0 albuterol HFA (PROVENTIL HFA, VENTOLIN HFA) 90 mcg/actuation inhalerInhale 2 Puffs as instructed every 6 hours as needed (cough, wheezing).Disp: 1 InhalerRfl: 0 INFLUENZA SEASONAL HIGH DOSE AGE 65+ [[id number]] Order #: [id number] Prescriptions as of 05/04/2018 Sig: ATORVASTATIN 10 MG TABLET Take 1 tablet by mouth daily * TRIAMTERENE 37.5 MG-HYDROCHLO* Take 1 capsule by mouth once * OMEPRAZOLE 40 MG CAPSULE,FATOUMATA* Take 1 capsule by mouth once * COMPOUNDED PRESCRIPTION KNEE HIGH COMPRESSION STOCKIN* MONTELUKAST 10 MG TABLET Take 1 tablet by mouth daily * ALBUTEROL SULFATE HFA 90 MCG/* Inhale 2 Puffs as instructed * Problem List As Of Date 05/04/2018 Noted Resolved Internal Hemorrhoids without Mention of Complic*INVALID FOR*05/05/2010 More... 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 Esophageal Reflux [K21.9] INVALID FOR* More... More... Sterilization [Z30.2] INVALID FOR*05/05/2010 Esophagitis, unspecified [K20.9] INVALID FOR*11/03/2016 More... More... Closed fracture of shaft of metacarpal bone(s) *INVALID FOR*09/30/2014 Stasis edema [I87.309] INVALID FOR* More... Essential hypertension [I10] INVALID FOR* Osteoarthritis of left knee [M17.12] INVALID FOR* Ventral hernia without obstruction or gangrene *INVALID FOR* Mobley's esophagus with dysplasia [K22.719] INVALID FOR* More... Hyperlipidemia, mixed [E78.2] INVALID FOR* Prescriptions ordered this encounter Disp Refills Start End MONTELUKAST 10 MG TABLET 30 t* 0 05/04/2018 Route: ORAL Sig: Take 1 tablet by mouth daily at bedtime. ALBUTEROL SULFATE HFA 90 MCG/ACTUATI* 1 In* 0 05/04/2018 Route: INHALATION Sig: Inhale 2 Puffs as instructed every 6 hours as needed (cough, wheezing). Disposition: Return in 6 months (on 11/11/2018), or if symptoms worsen or fail to improve. Follow-up and Disposition History Recorded Encounter Status:Closed by MATTHEW CARRILLO MD on 05/06/18 SURGERY VISIT REPORT Observed: 04/10/2018 Status: F Source: [place] 2:43 PM [facility] REPOSITORY [facility] [address] [place] [address] [address] [place] [address] OFFICE VISIT Date of Service: 04/04/18 MR#: [id number] Acct: [id number] Name: KEVEN SALMERON Rep #: [id number] : 1940 Provider: Bri Metcalf PA-C Age/Sex: 77/M Location: [facility] Status: Signed Intake Intake Visit Reasons: Hernia Surgery 03/27 Chief Complaint: ventral hernia, hx umbilical Ship Worker Required: No Is patient in pain?: No (Has pain with bending in left upper abdomen ) Allergies Tetanus Vaccines and Toxoid [Tetanus Vaccines AND Toxoid] Allergy (Verified 04/04/18 08:47) Swelling Medications Omeprazole [Prilosec] 40 mg PO DINNER 06/27/16 [History Confirmed 04/04/18] Triamterene 37.5MG/Hctz 25MG [Dyazide (G)] 1 cap PO DAILY 06/27/16 [History Confirmed 04/04/18] atorvastatin 10 mg tablet 10 mg PO QHS 02/28/18 [History Confirmed 04/04/18] PFSH Medical History Hyperlipidemia (Acute) Osteoarthritis (Chronic) GERD (gastroesophageal reflux disease) (Chronic) Hypertension (Chronic) Surgical History Hx of ventral hernia repair (Acute) S/P umbilical hernia repair, follow-up exam (Acute) Status post left knee replacement (Acute) Family History Father Heart disease Mother Hypertension Brother Parkinsons disease Social History Smoking Status: Never smoker HPI HPI HPI: KEVEN SALMERON, is a 77 M I am following for a recurrent ventral incisional hernia. Dr. Marquez will plan to perform a laparoscopic lysis of adhesions, laparoscopic ventral incisional hernia repair on 03/27/18. Patient tolerated the procedure well. He notes generalized soreness with bending, which is improving. He denies nausea, vomiting, fever. He notes appetite has returned to normal. He is passing flatus and having bowel movements normally. He did note having tape bull on his abdomen from the bandage adhesive. Exam Const General: cooperative, healthy appearing, comfortable, no acute distress GI Inspection: normal to inspection, obesity, incision (c/d/i. No erythema or infection noted), large pannus Palpation: soft, nontender Auscultation: normal bowel sounds Assessment AND Plan Problems 1. 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 04/10/18 1443 <Electronically signed by Bri Metcalf PA-C> Date Bri Chairez Signature: Date (if applicable) CC: Matthew Carrillo MD OPERATIVE REPORT Observed: 03/29/2018 Status: F Source: [place] 6:05 [facility] REPOSITORY [facility] Medical Records Department [address] [place] [address] Operative Report 03/27/18 1105 MR#: [id number] Acct: [id number] Name: KEVEN SALMERON Rep #: [id number] : 1940 77 From: Keyon Marquez MD PCP: Matthew Carrillo MD Status: DIS NEREIDA Y Location: [place] [address] Problem List (1) Recurrent ventral incisional hernia Status: Acute Report of Operation Date of Procedure: 03/27/18 Pre-Operative Diagnosis: Recurrent epigastric ventral incisional hernia Post-Operative Diagnosis: Recurrent epigastric ventral incisional hernia. Extensive intra-abdominal adhesions Surgery/Procedure Performed:: Extensive laparoscopic lysis of adhesions. Laparoscopic ventral incisional herniorrhaphy with Ventra lite ST mesh reference #[id number]. Lot number [id number]. Expiry date 12/15/2018. Secure strap lot number [id number] expiry date 12/08/2019. Secure strap lot number [id number] expiry date 12/08/2019 Description of Surgical Findings:: Timeout and informed consent was obtained. 77-year-old gentleman taken the operative room. He was placed on the table. He had one general endotracheal intubation anesthesia. The abdomen was sterilely prepped draped. Ioban drape was used as well. Ancef 2 g given intravenous preoperatively. 0.5% Marcaine was used as local anesthetic. Skin sites were pre-anesthetized. 23 cc was used. At the end of the case I performed a tap block using Exparel diluted to 60 cc with saline. A transverse incision was made directly overlying the palpable mass sharp dissection carried down through subcu tissue hernia sac was encountered and was sized to his omentum within this was freed and then it became apparent upon palpation that were extensive intra-abdominal adhesions. I placed a Wright catheter. I placed 3 Fusselman reports in the left abdomen and then later on to family reports a right abdomen there were extensive adhesions of omentum to the anterior abdominal wall and evidence of the previous supraumbilical mesh repair. There was some transverse colon that was identified slightly elevated but fortunately not densely adherent to the abdominal wall. Using a harmonic scalpel extensive laparoscopic lysis of adhesions ensued. Lysis of adhesions time 60 minutes. After extensively lysing adhesions had the omentum completely freed from the abdominal wall. I could see the previous mesh repair in the supraumbilical area. That appear to be intact the new defect was superior to it difficult to decipher the extent of the weakness. I elected to utilize a ventral light ST mesh, 19.8 x 22.9 cm. 4 corner sutures of 2-0 Prolene was placed. The mesh was furled and placed through the S sign. It was unfurled. Using a GraNee needle I piercing of the mesh up to the abdominal wall. I then secured the periphery of the mesh with secure strap. A total of 2 separate units were utilized. This allowed me to secure the periphery and to complete the inner portions of the mesh to inhibit seroma formation. Prior to completely fixing the mesh I remove the us on an close that fascial incision with several interrupted simple 0 Nurolon stitches. There was good coverage by the mesh good approximation. I then irrigated the mesh with saline the activated surface. I then under laparoscopic visualization performed a tap block this was performed at the superior edge of the mesh and then in the left subcostal and left upper quadrant abdominal areas. I visualized what I felt was the transversalis fascia pulled the needle back slightly to infiltrate the junction of the transversalis and the obliques. A total of 60 cc of the x-ray was utilized in its diluted quantity. I inspected and noted that the omentum was in good position the mesh was in good position trochars were removed under visualization. The abdomen was allowed to deflate his CO2. Skin edges approximated up to 4 Monocryl subdermal stitches. Steri-Strips Telfa and OpSite dressings applied. Sponge instrument and needle counts were reported to the surgeon to be correct. Blood loss was minimal. He tolerated the procedure well was taken to the recovery area in satisfactory condition. No apparent complication. Specimens none. Drains none. Blood loss minimal. Keyon Marquez M.D., F.A.C.S. Type of Anesthesia:: General Anesthesiologist: Prasanna Gibbons 03/29/18 0605 <Electronically signed by Keoyn Marquez MD> Date Keyon Marquez MD CC: Keyon Marquez MD; Matthew Carrillo MD Signed DISCHARGE INSTRUCTION Observed: 03/28/2018 Status: F Source: [place] 6:18 AM [facility] REPOSITORY [facility] Medical Records Department [address] [place] [address] Instructions for Home/Discharge Instructions 03/28/18616 MR#: [id number] Acct: [id number] Name: KEVEN SALMERON Rep #: [id number] : 1940 77 From: Bri Metcalf PA-C PCP: Matthew Carrillo MD Status: REG KSC Discharge Diet: Light diet - advance as tolerated Discharge Activity: Return to Normal Activity, May Not Drive - for 2-3 days or while taking narcotic pain meds., May Shower - with the bandage in place 1-2 days after surgery. Lifting Restrictions: 20 pounds for 8 weeks. Additional Activity Instructions:: Climbing stairs is fine, walking is encouraged. Sitting in bed may be uncomfortable. Sitting up using your lateral muscles (sitting up sideways) is usually more comfortable. Do not drive, work heavy equipment of sign legal documents for 24 hours. If your hernia repair was an ingunial repair, you may have scrotal swelling, an ice pack and/or athletic support can provide more comfort. Pain medications may cause nausea, you should typically eat light foods as you take your pain medications. Pain medications may also cause constipation. If you have difficulty with this, discuss with your doctor. Call your doctor if your incision/area has: Continuous Slow Oozing, Sudden Increased Bleeding, Increased Pain/ Swelling, Increased Redness, Foul Smelling Discharge Call your doctor if you observe: Fever of 101 or Higher Suture Line Care: Avoid Pulling/Pushing, Avoid Pinching/Bending Change Dressing in (Days):: 3 - Leave steri-strips for 1 week. May protect with a guaze bandaid. Cleanse incision/area with: Keep Dressing Clean AND Dry Allergies/Adverse Reactions: Allergies Tetanus Vaccines and Toxoid [Tetanus Vaccines AND Toxoid] Allergy (Verified 03/27/18 07:52) Swelling Medications to take at Discharge Omeprazole [Prilosec] 40 mg PO DINNER 06/27/16 Triamterene 37.5MG/Hctz 25MG [Dyazide (G)] 1 cap PO DAILY 06/27/16 atorvastatin 10 mg tablet 10 mg PO QHS 02/28/18 Hydrocodone Bitart/Apap 5-325 [[place] 5MG-325MG] 1 tablet PO Q6H PRN PRN 3 Days #10 tablet 03/27/18 The following prescriptions were given: Hydrocodone Bitart/Apap 5-325 [[place] 5MG-325MG] 1 tablet PO Q6H PRN PRN 3 Days #10 tablet PRN Reason: Pain Primary Care Physician: Matthew Carrillo MD [Primary Care Provider] - Test Results: Test results from this visit will be discussed in further detail at your follow-up appointment, if applicable. Please Follow Up With: Bri Metcalf PA-C - [phone] When: 10 days 03/28/18 0618 <Electronically signed by Bri Metcalf PA-C> Date Bri Metcalf PA-C CC: Matthew Carrillo MD CBC-COMPLETE BLOOD CNT Collected: 03/21/2018 Status: F Source: [place] NO DIFF 2:12 PM [facility] REPOSITORY TYPE CODE TESTS RESULT OUT OF RANGE REFERENCE UNITS LAB L100.1000 4.4-11.0 K/mm3 Normal WBC 6.3 LAB L100.1200 4.6-6.2 M/mm3 Normal RBC 4.68 LAB L100.1300 13.0-16.5 g/dl Normal HGB 13.6 LAB L100.1400 40-54 % Normal HCT 40.8 LAB L100.1500 80-94 fL Normal MCV 87.2 LAB L100.1600 27.0-32.0 pg Normal MCH 29.1 LAB L100.1700 32-36 g/gl Normal MCHC 33.3 LAB L100.1810 11.6-14.6 % Normal RDW CV 12.9 LAB L100.1820 35.1-43.9 fl Normal RDW SD 41.2 LAB L100.1900 150-450 K/mm3 Normal PLT 203 LAB L100.2000 6.2-12.0 fl Normal MPV 10.3 Performed By: #### L100.0500 #### [facility] [address] [place], [place], [address] BASIC METABOLIC Collected: 03/21/2018 Status: F Source: [place] PROFILE (BMP) 2:12 PM [facility] REPOSITORY TYPE CODE TESTS RESULT OUT OF RANGE REFERENCE UNITS LAB L501.0100 74-106 mg/dL High GLU 124 Result Comment: Fasting Glucose result from 100 to 125 mg/dL suggests IMPAIRED HOMEOSTASIS per A.D.A. criteria. Please note revised GLUCOSE reference range effective 2017. LAB L501.1000 7-18 mg/dL High BUN 23 LAB L501.1100 0.70-1.30 mg/dL Normal CREAT,SERUM 1.23 Result Comment: The validity of the calculated GFR AND GFRAA in patients over 70 years has not been determined. Clinical correlation is essential. LAB L501.1110 >60 mL/min Normal EST GFR 61 Result Comment: Non- GFR Calc LAB L501.1115 >60 mL/min Normal EST GFR - AA 73 Result Comment: GFR Calc LAB L501.1300 10-20 RATIO Normal BUN/CRE 18.7 LAB L501.2200 8.5-10.1 mg/dL CA Normal 8.5 LAB L501.5300 136-145 mmol/L NA Normal 143 LAB L501.5600 3.5-5.1 mmol/L K Normal 4.0 LAB L501.5900 98-107 mmol/L High CL 108 LAB L501.6100 21.0-32.0 mmol/L Normal CO2 27.0 LAB L501.6200 5-15 Normal GAP 8 Performed By: #### L500.2500 #### [facility] [address] [place], [address] PROGRESS Observed: 03/21/2018 Status: COMPLETED Source: [place] 9:02 AM [facility] REPOSITORY HNO ID: [id number] Author: Taty (Andrew) Older Service: (none) Author Type: Nurse Practitioner Type: Progress Notes Filed: 03/21/2018 9:22 AM Note Text: CC: Patient presents with: Cough x weeks: Productive -has surgery scheduled 03/27/18 HPI Keven Salmeron is a 77 year old male who presents today for cough. Has been going on for two weeks with chandra sputum production. Worse at night when patient lies down. Has been having some wheezing at night but clears when patient coughs up mucus. Post-nasal drip present. Denies any SOB, chest pain, sinus pressure, sore throat, headaches, ear pain, blood in sputum. Patient took OTC Caroline-Tecumseh last night and it was effective, was able to sleep throughout night. Patient concerned about cough because having hernia surgery on 03/27. REVIEW OF SYSTEMS General: no fevers, no chills, no night sweats, no recurrent infections, no recent weight changes PAST MEDICAL HISTORY Diagnosis Date - Mobley's esophagus 05/05/2010 - Closed fracture of shaft of metacarpal bone(s) 09/18/2011 - DIVERTICULOSIS COLON - NO HEMORRHAGE 11/28/2005 - Edema 03/13/2006 - Esophageal reflux 10/16/2008 - Esophagitis, unspecified - Essential hypertension 04/25/2016 - GENERAL OSTEOARTHROSIS 1998 Left knee. Arthroscopy 1998. - INT HEMORRHOID W/O COMPL 11/06/2005 Restarted Proctocream in 09-28 - LEG VARICOSITY W INFLAM 03/13/2006 - Osteoarthritis of left knee 04/25/2016 - POLYP COLON 11/28/2005 - Snoring - Stricture and stenosis of esophagus PAST SURGICAL HISTORY Procedure Laterality Date - APPENDECTOMY 1955 - COLONOSCOP W/ OR W/O BRSH SPEC 09/06/10 - COLONOSCOP W/ OR W/O BRSH SPEC N/A 11/23/2016 - COLONOSCOPY W/BX 11/27/05 Two small polyps, diverticulosis - EGD W/O OR W/BRUSH/WASH 01/22/2004 EGD - EGD W/O OR W/BRUSH/WASH 02/02/2014 EGD - EGD W/O OR W/BRUSH/WASH 02/16/14 EGD repeat 2 years - EGD W/O OR W/BRUSH/WASH 12/02/2015 EGD repeat 1 year - EGD W/O OR W/BRUSH/WASH 12/24/2017 EGD - EGD W/REM FB STOMACH/DUOD 01/14/07 [facility] ER - ESOPH W/O [facility] SPEC BALLOON DIL 09/06/10 with bx - HEMORRHOIDECT INTER/EXTER SIMP 11/30/05 - KNEE SCOPE,DIAGNOSTIC 1998 Arthroscopy, knee, Left - DE ANESTH,REPAIR UPPER ABD HERNIA NOS 2001 - TOTAL KNEE REPLACEMENT Left 07/10/2016 Knee replacement, total - VASECTOMY 02/24/09 ALLERGIES Tetanus Vaccines And Toxoid MEDICATIONS atorvastatin (LIPITOR) 10 mg tablet Take 1 tablet by mouth daily at bedtime. For cholesterol. triamterene-hydrochlorothiazide (DYAZIDE) 37.5-25 mg per capsule Take 1 capsule by mouth once daily. Omeprazole (PRILOSEC) 40 mg capsule Take 1 capsule by mouth once daily. Compression Knee Highs KNEE HIGH COMPRESSION STOCKINGS 20- 30 MM HG. DX: ICD9: 454.1, ICD10: I83.12, I83.11. ICD9: 459.30, ICD10: I87.301 FAMILY HISTORY Problem Relation Age of Onset - Stroke Father - Coronary Artery Disease Father at age 84 - Hypertension Mother age 92, natural causes. - Parkinsons [OTHER] Brother age 84 Social History Substance Use Topics - Smoking status: Never Smoker - Smokeless tobacco: Never Used - Alcohol use Yes Comment: 2 glasses/month PHYSICAL EXAM BP 120/89 (BP Site: Left Arm, BP Position: Sitting, BP Cuff Size: Regular Adult) Pulse (!) 59 Temp 36.4 ?C (97.5 ?F) (Temporal Artery) Resp 16 Wt 98.9 kg (218 lb) SpO2 97% BMI 33.15 kg/m? General Appearance: well appearing, in no acute distress, alert Ears: external ears normal to inspection and palpation, canals clear, Left tympanic membrane normal. , Right tympanic membrane normal Nose/sinus: Nares normal. Septum midline. Mucosa normal. No drainage. Oropharynx: [place], moist Lymph nodes: No cervical lymphadenopathy Lungs: Lungs clear to auscultation. No wheezing, rhonchi, rales Heart: RRR without murmur, gallop, or rubs. No ectopy ASSESSMENT/PLAN: 1. Cough - ICD9: 786.2, ICD10: R05 - No alarming symptoms or exam findings. viral URI vs rhinitis - Flonase [place] OTC - XR CHEST 2V FRONTAL/LAT- for further evaluation prior to surgery - Follow up pending chest x-ray results Prescription instructions reviewed with patient as applicable. Potential red flag symptoms discussed with the patient. Reviewed appropriate action plan to take if red flag symptoms occur. Patient agreeable to treatment plan. Taty Willams, DENTAL TECHNICIAN.LOAD PLANNER XR CHEST 2V FRONTAL/LAT Observed: 03/21/2018 Status: F Source: [place] 8:47 AM [facility] REPOSITORY * * *Final Report* * * DATE OF EXAM: Mar 21 2018 8:47AM WOX [id number] - XR CHEST 2V FRONTAL/LAT / PROCEDURE REASON: Cough * * * * Physician Interpretation * * * * EXAMINATION: CHEST RADIOGRAPH (2 VIEW FRONTAL and LATERAL) Clinical History: Cough MQ: XC2_5 Comparison: None. RESULT: Lines, tubes, and devices: None. Lungs and pleura: No consolidation. No pleural effusion. No pneumothorax. Cardiomediastinal silhouette: Normal cardiomediastinal silhouette. Aortic atherosclerotic calcification. Other: . IMPRESSION: No acute radiographic abnormality. Neuropsychology Division Chief: P[employer] Transcribe Date/Time: Mar 21 2018 4:17P Dictated by : KEVEN GAINES MD This examination was interpreted and the report reviewed and electronically signed by: KEVEN GAINES MD on Mar 21 2018 4:20PM EST [id number] Observed: 03/21/2018 Status: COMPLETED Source: [place] 8:41 AM [facility] REPOSITORY HNO ID: [id number] Author: Gisel Pierce (Rt) Alyse Bowman Service: (none) Author Type: Cloth Pattern Maker Type: Progress Notes Filed: 03/21/2018 8:47 AM Note Text: Radiology Service Progress Note PATIENT NAME: Keven Salmeron DATE OF SERVICE: March 21, 2018 TIME: 8:41 AM PATIENT IDENTITY VERIFICATION COMPLETED USING TWO (2) METHODS: Patient confirmed name verbally and Date of . PATIENT GENDER DATA: Male PATIENT RELEVANT IMPLANT DATA REVIEWED: Not Applicable RADIOLOGY DEPARTMENT: General X-ray: Exam(s) Completed: Chest X-Ray PERIPHERAL IV DATA: Not applicable SIGNED BY: RT Olegario March 21, 2018 8:41 AM CNOV Observed: 03/21/2018 Status: COMPLETED Source: [place] 8:20 AM [facility] REPOSITORY Office Visit (INTMWS) JARONKEVEN KIDD ([id number]) 1940 M Date Time Provider Department 03/21/18 8:20 AM TATY WILLAMS (ANDREW) INTMWS During your visit today, we recorded the following information about you: Temperature Pulse Respiration Blood pressure 97.5 degrees 59/minute 16/minute 120/89 Weight 98.9 kg Taty Willams APRN.CNP 03/21/2018 8:34 AM Signed Flonase (Fluticasone) over the counter Taty Willams APRN.CNP 03/21/2018 9:22 AM Signed CC: Patient presents with: Cough x weeks: Productive -has surgery scheduled 03/27/18 [facility] Keven M Jaron is a 77 year old male who presents today for cough. Has been going on for two weeks with chandra sputum production. Worse at night when patient lies down. Has been having some wheezing at night but clears when patient coughs up mucus. Post-nasal drip present. Denies any SOB, chest pain, sinus pressure, sore throat, headaches, ear pain, blood in sputum. Patient took OTC [place] last night and it was effective, was able to sleep throughout night. Patient concerned about cough because having hernia surgery on 03/27. REVIEW OF SYSTEMS General: no fevers, no chills, no night sweats, no recurrent infections, no recent weight changes PAST MEDICAL HISTORY Diagnosis Date - Mobley's esophagus 05/05/2010 - Closed fracture of shaft of metacarpal bone(s) 09/18/2011 - DIVERTICULOSIS COLON - NO HEMORRHAGE 11/28/2005 - Edema 03/13/2006 - Esophageal reflux 10/16/2008 - Esophagitis, unspecified - Essential hypertension 04/25/2016 - GENERAL OSTEOARTHROSIS 1998 Left knee. Arthroscopy 1998. - INT HEMORRHOID W/O COMPL 11/06/2005 Restarted Proctocream in - - LEG VARICOSITY W INFLAM 03/13/2006 - Osteoarthritis of left knee 04/25/2016 - POLYP COLON 11/28/2005 - Snoring - Stricture and stenosis of esophagus PAST SURGICAL HISTORY Procedure Laterality Date - APPENDECTOMY 1955 - COLONOSCOP W/ OR W/O [facility] SPEC 09/06/10 - COLONOSCOP W/ OR W/O [facility] SPEC N/A 11/23/2016 - COLONOSCOPY W/BX 11/27/05 Two small polyps, diverticulosis - EGD W/O OR W/BRUSH/WASH 01/22/2004 EGD - EGD W/O OR W/BRUSH/WASH 02/02/2014 EGD - EGD W/O OR W/BRUSH/WASH 02/16/14 EGD repeat 2 years - EGD W/O OR W/BRUSH/WASH 12/02/2015 EGD repeat 1 year - EGD W/O OR W/BRUSH/WASH 12/24/2017 EGD - EGD W/REM FB STOMACH/DUOD 01/14/07 [facility] ER - ESOPH W/O [facility] SPEC BALLOON DIL 09/06/10 with bx - HEMORRHOIDECT INTER/EXTER SIMP 11/30/05 - KNEE SCOPE,DIAGNOSTIC 1998 Arthroscopy, knee, Left - DE ANESTH,REPAIR UPPER ABD HERNIA NOS 2001 - TOTAL KNEE REPLACEMENT Left 07/10/2016 Knee replacement, total - VASECTOMY 02/24/09 ALLERGIES Tetanus Vaccines And Toxoid MEDICATIONS atorvastatin (LIPITOR) 10 mg tablet Take 1 tablet by mouth daily at bedtime. For cholesterol. triamterene-hydrochlorothiazide (DYAZIDE) 37.5-25 mg per capsule Take 1 capsule by mouth once daily. Omeprazole (PRILOSEC) 40 mg capsule Take 1 capsule by mouth once daily. Compression Knee Highs KNEE HIGH COMPRESSION STOCKINGS 20- 30 MM HG. DX: ICD9: 454.1, ICD10: I83.12, I83.11. ICD9: 459.30, ICD10: I87.301 FAMILY HISTORY Problem Relation Age of Onset - Stroke Father - Coronary Artery Disease Father at age 84 - Hypertension Mother age 92, natural causes. - Parkinsons [OTHER] Brother age 84 Social History Substance Use Topics - Smoking status: Never Smoker - Smokeless tobacco: Never Used - Alcohol use Yes Comment: 2 glasses/month PHYSICAL EXAM BP 120/89 (BP Site: Left Arm, BP Position: Sitting, BP Cuff Size: Regular Adult) Pulse (!) 59 Temp 36.4 ?C (97.5 ?F) (Temporal Artery) Resp 16 Wt 98.9 kg (218 lb) SpO2 97% BMI 33.15 kg/m? General Appearance: well appearing, in no acute distress, alert Ears: external ears normal to inspection and palpation, canals clear, Left tympanic membrane normal. , Right tympanic membrane normal Nose/sinus: Nares normal. Septum midline. Mucosa normal. No drainage. Oropharynx: [place], moist Lymph nodes: No cervical lymphadenopathy Lungs: Lungs clear to auscultation. No wheezing, rhonchi, rales Heart: RRR without murmur, gallop, or rubs. No ectopy ASSESSMENT/PLAN: 1. Cough - ICD9: 786.2, ICD10: R05 - No alarming symptoms or exam findings. viral URI vs rhinitis - Flonase [place] OTC - XR CHEST 2V FRONTAL/LAT- for further evaluation prior to surgery - Follow up pending chest x-ray results Prescription instructions reviewed with patient as applicable. Potential red flag symptoms discussed with the patient. Reviewed appropriate action plan to take if red flag symptoms occur. Patient agreeable to treatment plan. Taty Willams APRN.LOAD PLANNER Referring Provider: SELF [[id number]] Allergies As of Date: 03/21/2018 Noted Allergy Reaction TETANUS VACCINES AND TOXOID 11/06/2005 Date Reviewed: 03/21/2018 Reviewed by: Areli Gray Grapple Crew Leader - Fully Assessed Reason for Visit: Cough x weeks [Other] Cmt: Productive -has surgery scheduled 03/27/18 Primary Visit Diagnosis:Cough [R05] Order(s):XR CHEST 2V FRONTAL/LAT [[id number]] Order #: [id number] FUTURE Prescriptions as of 03/21/2018 Sig: ATORVASTATIN 10 MG TABLET Take 1 tablet by mouth daily * TRIAMTERENE 37.5 MG-HYDROCHLO* Take 1 capsule by mouth once * OMEPRAZOLE 40 MG CAPSULE,FATOUMATA* Take 1 capsule by mouth once * COMPOUNDED PRESCRIPTION KNEE HIGH COMPRESSION STOCKIN* Problem List As Of Date 03/21/2018 Noted Resolved Internal Hemorrhoids without Mention of Complic*INVALID FOR*05/05/2010 More... 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 Esophageal Reflux [K21.9] INVALID FOR* More... More... Sterilization [Z30.2] INVALID FOR*05/05/2010 Esophagitis, unspecified [K20.9] INVALID FOR*11/03/2016 More... More... Closed fracture of shaft of metacarpal bone(s) *INVALID FOR*09/30/2014 Stasis edema [I87.309] INVALID FOR* More... Essential hypertension [I10] INVALID FOR* Osteoarthritis of left knee [M17.12] INVALID FOR* Ventral hernia without obstruction or gangrene *INVALID FOR* Mobley's esophagus with dysplasia [K22.719] INVALID FOR* More... Hyperlipidemia, mixed [E78.2] INVALID FOR* Other instructions from your clinician: Flonase (Fluticasone) over the counter Encounter Status:Closed by TATY WILLAMS CNP on 03/21/18 SURGERY VISIT REPORT Observed: 02/28/2018 Status: F Source: [place] 10:59 AM [facility] [address] [place] [address] [address] [place] [address] OFFICE VISIT Date of Service: 02/28/18 MR#: [id number] Acct: [id number] Name: KEVEN SALMERON Rep #: [id number] : 1940 Provider: Keyon Marquez MD Age/Sex: 77/M Location: [facility] Status: Signed Intake Vital Signs02/28/18 Height 5 ft 8 in 02/28/18 Weight: 216 lb 8 oz 02/28/18 Body Mass Index (BMI) 32.9 02/28/18 Blood Pressure 140/73 Intake Visit Reasons: Hernia Chief Complaint: ventral hernia, hx umbilical Ship Worker Required: No Is patient in pain?: No Allergies Tetanus Vaccines and Toxoid [Tetanus Vaccines AND Toxoid] Allergy (Verified 02/28/18 10:44) Swelling Medications Omeprazole [Prilosec] 40 mg PO DINNER 06/27/16 [History Confirmed 02/28/18] Triamterene 37.5MG/Hctz 25MG [Dyazide (G)] 1 cap PO DAILY 06/27/16 [History Confirmed 02/28/18] Aspirin 325 mg PO BIDCM #60 tab 07/12/16 [Rx] atorvastatin 10 mg tablet 10 mg PO QDAY 02/28/18 [History Confirmed 02/28/18] PFSH Medical History Ventral incisional hernia without obstruction or gangrene (Acute) Osteoarthritis (Chronic) GERD (gastroesophageal reflux disease) (Chronic) Hypertension (Chronic) Hyperlipidemia (Acute) Surgical History S/P umbilical hernia repair, follow-up exam (Acute) Status post left knee replacement (Acute) Family History Father Heart disease Mother Hypertension Brother Parkinsons disease Social History Smoking Status: Never smoker HPI HPI HPI: KEVEN SALMERON, is a 77 M who presents to the office today for surgical consultation regarding an epigastric hernia. The patient is referred by his primary care physician Dr. Matthew Carrillo and a written copy of my surgical consult and rib recommendations will return to him. The patient reminds me that approximately 15 years ago I performed a ventral hernia repair. Apparently then the area recurred and required a redo repair with mesh. He has been very happy since that time. 6 months ago he developed a bulge in the mid epigastrium superior to 2 previous incisions. He is now started a cardio fit program in the area is becoming larger and more symptomatic. On a separate note December 24, 2017 the patient had a combined upper and lower endoscopy performed by Dr. Fernando Cano. The patient has a history of long segment Mobley's esophagus. This was biopsied. Pathology does not demonstrate any dysplasia. Colonoscopy showed diverticulosis follow-up exam in 5 years recommended. The patient otherwise states she is enjoying good health. Is always been physically active. The patient does have chronic bilateral lower extremity venous stasis changes. During the winter he will wear support hose. Currently he finds it too hot. ROS General General: No weight change, appetite, fatigue, colon cancer, breast cancer or weakness HEENT HEENT: No difficulty swallowing, eye injury, eye surgery, swollen glands or hoarseness Endo Endocrine: No thyroid disease, diabetes mellitus, thyroid cancer, Hair loss, heat intolerance or cold intolerance Skin Skin: No rash or changing moles [facility] Musculoskeletal: Yes arthritis; no back problems, rheumatoid arthritis, gout or joint pain Cardio Cardiovascular: Yes high blood pressure; no murmur, pacemaker, heart disease, atrial fibrillation, heart attack, heart stent, palpitations, shortness of breat with exertion or chest pain Resp Respiratory: No shortness of breath, No sleep apnea, No cough, No COPD, No asthma, No emphysema, No wheezing Gastro Gastrointestinal: No abdominal pain, No nausea or vomiting, No diarrhea, No constipation, No blood in stool, Yes acid reflux, No hemorrhoids, No ulcers, No gallbladder problem, No black,tarry stools Krish Hematologic: No blood thinners, No blood disorders, No bleeding, No anemia, No blood clots Neuro Neurologic: No weakness Exam Const General: cooperative, healthy appearing, comfortable Nutritional Appearance: overweight Orientation: alert, awake [facility] Head: normal to inspection Eyes General: appearance normal, both eyes and all related structures Neck Neck: normal visual inspection Chest Chest palpation AND inspection: normal inspection of the chest Resp Effort AND Inspection: normal respiratory effort Auscultation: clear to auscultation bilaterally Cardio Rate: regular rate Rhythm: regular rhythm Heart Sounds: no murmurs GI Palpation: soft, no hepatosplenomegaly Other: Transverse incision directly above the umbilicus well- healed with a solid repair. Transverse incision approximately 4 cm more cephalad to the previous mentioned incision also solid and intact. Mid epigastrium 3 cm diameter partially reducible mass. No erythema. [facility] Cervical Spine: normal cervical lordosis Skin Other: Venous stasis changes bilateral lower extremities Neuro Cranial Nerves: CN's II-XI intact bilaterally Extrem Other: Hyperpigmentation with nonpitting edema bilateral lower extremities Psych Affect: normal affect Assessment AND Plan Problems 1. Ventral incisional hernia without obstruction or gangrene K43.2 Plan Superior to 2 previous ventral hernia repairs the patient appears to have a defect in the linea-alba in the mid epigastrium.. He also has diastases recti. That is not symptomatic to him but the hernia is. 3 months ago he initiated a exercise program causing the hernia to accelerate. I proposed to him a direct approach to this hernia. Careful tissue marking will be required. However based upon his history of 2 previous repair I have cautioned him that I may convert to a laparoscopic approach for more extensive inspection of his entire anterior abdominal wall as he would seem to be at risk for additional hernia formation. He has had an opportunity to ask and have questions answered. I have asked that he reinitiate utilization of his support hose. He has had an opportunity to ask and have questions answered. I very much appreciate the kind opportunity of continue to assist with his surgical care. We will schedule and proceed at his discretion. Cc: Dr. Matthew Marquez M.D., F.A.C.S. Medications Discontinued: hydrocodone-acetaminophen 5-325 mg Discont1 - 2 tabs PO Q6H PRN PRN Mild-Mod Pain (1-5 inued Reason: Pt no longer taking /10) Coding Level of Care Code Detailed, Low Diagnoses Ventral incisional hernia without obstruction or gangrene K43.2 02/28/18 1059 <Electronically signed by Keyon Marquez MD> Date Keyon Marquez MD Cosigner Signature: Date (if applicable) CC: Matthew Carrillo MD NURSING PROG Observed: 12/24/2017 Status: COMPLETED Source: [place] 5:40 PM [facility] REPOSITORY HNO ID: [id number] Author: Kp Talavera (Rn), RN Service: Nursing Author Type: Registered Nurse Type: Nursing Progress Note Filed: 12/24/2017 5:40 PM Note Text: Patient did not experience a fall prior to discharge. Patient did not experience a burn prior to discharge. Kp Talavera RN NURSING PROG Observed: 12/24/2017 Status: COMPLETED Source: [place] 5:29 PM [facility] REPOSITORY HNO ID: [id number] Author: Kp TalaveraRn), RN Service: Nursing Author Type: Registered Nurse Type: Nursing Progress Note Filed: 12/24/2017 5:46 PM Note Text: Dressed to go home, talked to Dr Cano, all questions answered, no complaints, all safety maintained. NURSING PROG Observed: 12/24/2017 Status: COMPLETED Source: [place] 5:25 PM [facility] REPOSITORY HNO ID: [id number] Author: Kp TalaveraRn), RN Service: Nursing Author Type: Registered Nurse Type: Nursing Progress Note Filed: 12/24/2017 5:26 PM Note Text: Tolerated snack, at his side, waiting to talk Dr Cano . PT ED Observed: 12/24/2017 Status: COMPLETED Source: [place] 5:16 PM [facility] REPOSITORY HNO ID: [id number] Author: Kp TalaveraRn), RN Service: Nursing Author Type: Registered Nurse Type: Patient Education Filed: 12/24/2017 5:16 PM Note Text: POST OP LEARNING RESPONSE INSTRUCTION PROVIDED TO: Patient and family member METHOD OF INSTRUCTION: Individual instruction Written instruction - handouts Verbal instruction PATIENT / FAMILY RESPONSE: Information received as demonstrated by interest and questions FOLLOW-UP PLAN: Patient instructed to call with any further issues SUPPLEMENTAL MATERIAL: None REFERRAL (RECOMMENDATION): None Electronically Signed By: Kp Talavera RN In Department: AMBULATORY SURGERY PT ED Observed: 12/24/2017 Status: COMPLETED Source: [place] 5:10 PM [facility] REPOSITORY HNO ID: [id number] Author: Kp TalaveraRn), RN Service: Nursing Author Type: Registered Nurse Type: Patient Education Filed: 12/24/2017 5:11 PM Note Text: POST OP LEARNING RESPONSE INSTRUCTION PROVIDED TO: Patient and family member METHOD OF INSTRUCTION: Individual instruction Written instruction - handouts Verbal instruction PATIENT / FAMILY RESPONSE: Information received as demonstrated by interest and questions FOLLOW-UP PLAN: Patient instructed to call with any further issues SUPPLEMENTAL MATERIAL: None REFERRAL (RECOMMENDATION): None Electronically Signed By: Kp Talavera RN In Department: AMBULATORY SURGERY NURSING PROG Observed: 12/24/2017 Status: COMPLETED Source: [place] 4:54 PM [facility] REPOSITORY HNO ID: [id number] Author: Kp TalaveraRn), RN Service: Nursing Author Type: Registered Nurse Type: Nursing Progress Note Filed: 12/24/2017 5:04 PM Note Text: Pt into Endo recovery room in satisfactory condition. Resting on left side. Pt. sleepy but arousable. Abdomen soft, no complaints, all safety maintained. Will continue to monitor. NURSING PROG Observed: 12/24/2017 Status: COMPLETED Source: [place] 4:51 PM [facility] REPOSITORY HNO ID: [id number] Author: Melissa WilloughbyRn), RN Service: (none) Author Type: Registered Nurse Type: Nursing Progress Note Filed: 12/24/2017 4:51 PM Note Text: Patient did not experience a fall within the Intraoperative area. Patient did not experience a burn within the Intraoperative area. Melissa Willoughby, JUSTIN BRIEF OP NOT Observed: 12/24/2017 Status: COMPLETED Source: [place] 4:48 PM [facility] REPOSITORY HNO ID: [id number] Author: Fernando Cano Service: Gastroenterology Author Type: Physician Type: Brief Op Note Filed: 12/24/2017 4:48 PM Note Text: Endoscopy completed. Procedure well tolerated. Results will be carefully delineated in my final note which will follow shortly . Fernando Cano M.D. HISTORY PHYSICAL Observed: 12/24/2017 Status: COMPLETED Source: [place] 4:40 PM [facility] REPOSITORY HNO ID: [id number] Author: Fernando Cano Service: Gastroenterology Author Type: Physician Type: HANDP Filed: 12/24/2017 4:41 PM Note Text: UPDATED HISTORY AND PHYSICAL EXAMINATION SERVICE DATE: 12/24/2017 SERVICE TIME: 4:41 PM PHYSICAL EXAM MUST BE COMPLETED ON ADMISSION The History and Physical (completed in the past 30 days) has been reviewed and the patient has been examined. The contents accurately reflect the patient's condition with the following additions or revisions since the HANDP was completed. Examination indicates no changes. This HANDP can be found in the Electronic Medical Record dated 12/14/18. SIGNATURE: Fernando Cano MD PATIENT NAME: Keven Salmeron DATE: December 24, 2017 TIME: 4:40 PM PAGER: NURSING PROG Observed: 12/24/2017 Status: COMPLETED Source: [place] 4:37 PM [facility] REPOSITORY HNO ID: [id number] Author: Neeru Dominguez (Rn), RN Service: (none) Author Type: Registered Nurse Type: Nursing Progress Note Filed: 12/24/2017 4:40 PM Note Text: [facility] PRE-OP NURSING HAND OFF NOTE SBAR Hand off given to Melissa Willoughby RN. Hand off was communicated verbally and at the patient's bedside and all questions were answered. FALLS/BULL Patient did not experience a fall within the Preoperative area. Patient did not experience a burn within the Preoperative area. Neeru Dominguez RN NURSING PROG Observed: 12/24/2017 Status: COMPLETED Source: [place] 3:30 PM [facility] REPOSITORY HNO ID: [id number] Author: Neeru Dominguez (Rn), RN Service: (none) Author Type: Registered Nurse Type: Nursing Progress Note Filed: 12/24/2017 3:45 PM Note Text: Discharge Instructions were reviewed pre-operatively with the patient. All questions and concerns were addressed. Neeru Dominguez RN PRE OP LEARNING ASSESSMENT PROCEDURE/SURGERY: GI PROCEDURES: EGD READINESS TO LEARN COGNITIVE ABILITY: Alert and oriented MOTIVATION TO LEARN: Interested FAMILY SUPPORT: Unable to assess - Family not present PATIENT LEARNS BEST BY: Multiple Methods FACTORS AFFECTING LEARNING: None PHYSICAL LIMITATIONS AFFECTING LEARNING: None Electronically Signed By: Neeru Dominguez RN In Department: AMBULATORY SURGERY SURGICAL PATHOLOGY Observed: 12/24/2017 Status: F Source: [place] 12:00 AM [facility] REPOSITORY Specimen originated from [place] Hospital Specimen #: [id number] Submitting Physician: FERNANDO CANO MD FINAL DIAGNOSIS Distal esophagus, biopsy - Mobley's esophagus, negative for dysplasia. ROSITA/olman 12/26/2017 Eliza Crisostomo M.D. (Electronic Signature) SPECIMEN SUBMITTED A: DISTAL ESOPHAGUS, BIOPSY CLINICAL DATA K22.719 GROSS DESCRIPTION A. Received in formalin are five pieces of sheriff, soft tissue aggregating to 1.5 x 0.2 x 0.2 cm. Totally submitted in one cassette. Gross examination performed at [facility], [address] [place] [address] 12/26/2017 2:18:53 AM Date of Report: 12/26/2017 Date of Procedure: 12/24/2017 Date of Receipt: 12/25/2017 Submitted by: FERNANDO CANO MD Location: [id number] Diagnostic interpretation performed at [facility], [address] [place] [address]. HISTORY PHYSICAL Observed: 12/14/2017 Status: COMPLETED Source: [place] 8:25 AM [facility] REPOSITORY HNO ID: [id number] Author: Rita Juárez Service: (none) Author Type: Nurse Practitioner Type: HANDP Filed: 12/14/2017 8:46 AM Note Text: Keven Salmeron a 77 year old male who is returning to set up surveillance EGD. He has a history of Mobley's. His PCP is Dr. Carrillo. The patient was seen by Dr. Cano for upper endoscopy 12/02/15. The procedure report has been reviewed and findings as follows: Findings: ? ? ?There were esophageal mucosal changes consistent with long-segment ? ? ?Mobley's esophagus present in the lower third of the esophagus. The ? ? ?maximum longitudinal extent of these mucosal changes was 6 cm in length. ? ? ?Biopsies were taken with a cold forceps for histology. Estimated blood ? ? ?loss was minimal. ? ? ?The entire examined stomach was normal. ? ? ?The examined duodenum was normal. 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 One year surveillance was recommended due to the pathology. Presenting complaint: The patient presents today stating when I take the prilosec on a regular basis I feel good. When I don't take it I can feel it in the evening. The patient denies change in bowel habits, rectal bleeding or abdominal pain. Having a bowel movement daily. REVIEW OF SYSTEMS: GENERAL: No unplanned weight loss. RESPIRATORY: Cough; dry- related to a recent cold. CARDIOVASCULAR: Hypertension and elevated cholesterol. GI: The patient states that his appetite has been good. He does get hungry. There has been no nausea, no vomiting. He denies dysphagia and denies odynophagia. There has not been indigestion or heartburn. There has not been regurgitation. Bowel habits have been regular. There has not been diarrhea. There has not been constipation. The patient denies rectal bleeding. There has not been melena. No abdominal pain. PSYCH: Negative for sleep disturbance, mood disorder and recent psychosocial stressors. HEMATOLOGY/LYMPHOLOGY Negative for prolonged bleeding, bruising easily or swollen nodes ENDOCRINE: Negative for thyroid or diabetes, at this point. NEURO: No history of headaches, syncope, paralysis, seizures or tremors All other reviewed and negative other than HPI. PAST MEDICAL HISTORY Diagnosis Date - Mobley's esophagus 05/05/2010 - Closed fracture of shaft of metacarpal bone(s) 09/18/2011 - DIVERTICULOSIS COLON - NO HEMORRHAGE 11/28/2005 - Edema 03/13/2006 - Esophageal reflux 10/16/2008 - Esophagitis, unspecified - Essential hypertension 04/25/2016 - GENERAL OSTEOARTHROSIS 1998 Left knee. Arthroscopy 1998. - INT HEMORRHOID W/O COMPL 11/06/2005 Restarted Proctocream in - - LEG VARICOSITY W INFLAM 03/13/2006 - Osteoarthritis of left knee 04/25/2016 - POLYP COLON 11/28/2005 - Snoring - Stricture and stenosis of esophagus PAST SURGICAL HISTORY Procedure Laterality Date - APPENDECTOMY 1955 - COLONOSCOP W/ OR W/O [facility] SPEC 09/06/10 - COLONOSCOP W/ OR W/O [facility] SPEC N/A 11/23/2016 - COLONOSCOPY W/BX 11/27/05 Two small polyps, diverticulosis - EGD W/O OR W/BRUSH/WASH 01/22/2004 EGD - EGD W/O OR W/BRUSH/WASH 02/02/2014 EGD - EGD W/O OR W/BRUSH/WASH 02/16/14 EGD repeat 2 years - EGD W/O OR W/BRUSH/WASH 12/02/2015 EGD repeat 1 year - EGD W/REM FB STOMACH/DUOD 01/14/07 [facility] ER - ESOPH W/O [facility] SPEC BALLOON DIL 09/06/10 with bx - HEMORRHOIDECT INTER/EXTER SIMP 11/30/05 - KNEE SCOPE,DIAGNOSTIC 1998 Arthroscopy, knee, Left - DE ANESTH,REPAIR UPPER ABD HERNIA NOS 2001 - TOTAL KNEE REPLACEMENT Left 07/10/2016 Knee replacement, total - VASECTOMY 02/24/09 FAMILY HISTORY Problem Relation Age of Onset - Stroke Father - Coronary Artery Disease Father at age 84 - Hypertension Mother age 92, natural causes. - Parkinsons [OTHER] Brother age 84 Current Outpatient Prescriptions: atorvastatin (LIPITOR) 10 mg tablet Take 1 tablet by mouth daily at bedtime. For cholesterol. Disp: 90 tablet Rfl: 3 triamterene-hydrochlorothiazide (DYAZIDE) 37.5-25 mg per capsule Take 1 capsule by mouth once daily. Disp: 90 capsule Rfl: 3 Omeprazole (PRILOSEC) 40 mg capsule Take 1 capsule by mouth once daily. Disp: 90 capsule Rfl: 3 Compression Knee Highs KNEE HIGH COMPRESSION STOCKINGS 20- 30 MM HG. DX: ICD9: 454.1, ICD10: I83.12, I83.11. ICD9: 459.30, ICD10: I87.301 Disp: 1 Each Rfl: 0 No current facility-administered medications for this visit. SOCIAL HISTORY: Patient is . He has never smoked and reports his alcohol use as occasionally. PHYSICAL EXAMINATION: Blood pressure 136/76, pulse 62, height 172.7 cm (5' 8), weight 98.9 kg (218 lb). General Appearance: Well appearing, alert, in no acute distress, well-hydrated, well nourished. Skin: Skin color, texture, turgor normal, no suspicious rashes or lesions. Eyes: Anicteric sclera. Oropharynx: Lips, mucosa, and tongue normal, teeth and gums normal, oropharynx normal. Neck: Supple, no adenopathy. Lungs: Lungs clear to auscultation. No wheezing, rhonchi, rales. Heart: RRR without murmur. Abdomen: Abdomen soft, non-tender. Bowel sounds normal. No masses, organomegaly. Extremities: No deformities. Positive for skin discoloration RLE. Impression: Mobley's Plan: The patient is scheduled for upper endoscopy. Preparation for the procedure and the procedure itself have been explained in detail. The risks, benefits, anticipated outcomes and possible complications were mentioned. I also explained the procedure in understandable terms and the patient was given printed material concerning the planned procedure. The patient had the opportunity to ask questions concerning the planned procedure. The patient freely consents to the planned procedure. The patient is asked to call with any questions or concerns, or if there is a change in health status between now and the scheduled procedure. I have personally interviewed and examined this patient. I have read the information that the MA documented in this encounter. This visit was at least 25 minutes in length with a majority of the time spent in review of the past records with the patient, discussion and counseling. Rita Juárez RN APRN.LOAD PLANNER CNOV Observed: 12/14/2017 Status: COMPLETED Source: [place] 8:20 AM [facility] REPOSITORY [facility] KEVEN SALMERON ([id number]) 1940 M Date Time Provider Department 12/14/17 8:20 AM RITA JUÁREZ (SHERIE) [facility] During your visit today, we recorded the following information about you: Pulse Blood pressure Weight Height 62/minute 136/76 98.9 kg 1.727 m Rita Juárez RN APRN.LOAD PLANNER 12/14/2017 8:46 AM Signed Keven Salmeron a 77 year old male who is returning to set up surveillance EGD. He has a history of Mobley's. His PCP is Dr. Carrillo. The patient was seen by Dr. Cano for upper endoscopy 12/02/15. The procedure report has been reviewed and findings as follows: Findings: ? ? ?There were esophageal mucosal changes consistent with long-segment ? ? ?Mobley's esophagus present in the lower third of the esophagus. The ? ? ?maximum longitudinal extent of these mucosal changes was 6 cm in length. ? ? ?Biopsies were taken with a cold forceps for histology. Estimated blood ? ? ?loss was minimal. ? ? ?The entire examined stomach was normal. ? ? ?The examined duodenum was normal. 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 One year surveillance was recommended due to the pathology. Presenting complaint: The patient presents today stating ANDquot;when I take the prilosec on a regular basis I feel good. When I don't take it I can feel it in the eveningANDquot;. The patient denies change in bowel habits, rectal bleeding or abdominal pain. Having a bowel movement daily. REVIEW OF SYSTEMS: GENERAL: No unplanned weight loss. RESPIRATORY: Cough; dry- related to a recent cold. CARDIOVASCULAR: Hypertension and elevated cholesterol. GI: The patient states that his appetite has been good. He does get hungry. There has been no nausea, no vomiting. He denies dysphagia and denies odynophagia. There has not been indigestion or heartburn. There has not been regurgitation. Bowel habits have been regular. There has not been diarrhea. There has not been constipation. The patient denies rectal bleeding. There has not been melena. No abdominal pain. PSYCH: Negative for sleep disturbance, mood disorder and recent psychosocial stressors. HEMATOLOGY/LYMPHOLOGY Negative for prolonged bleeding, bruising easily or swollen nodes ENDOCRINE: Negative for thyroid or diabetes, at this point. NEURO: No history of headaches, syncope, paralysis, seizures or tremors All other reviewed and negative other than HPI. PAST MEDICAL HISTORY Diagnosis Date - Mobley's esophagus 05/05/2010 - Closed fracture of shaft of metacarpal bone(s) 09/18/2011 - DIVERTICULOSIS COLON - NO HEMORRHAGE 11/28/2005 - Edema 03/13/2006 - Esophageal reflux 10/16/2008 - Esophagitis, unspecified - Essential hypertension 04/25/2016 - GENERAL OSTEOARTHROSIS 1998 Left knee. Arthroscopy 1998. - INT HEMORRHOID W/O COMPL 11/06/2005 Restarted Proctocream in - - LEG VARICOSITY W INFLAM 03/13/2006 - Osteoarthritis of left knee 04/25/2016 - POLYP COLON 11/28/2005 - Snoring - Stricture and stenosis of esophagus PAST SURGICAL HISTORY Procedure Laterality Date - APPENDECTOMY 1955 - COLONOSCOP W/ OR W/O [facility] SPEC 09/06/10 - COLONOSCOP W/ OR W/O [facility] SPEC N/A 11/23/2016 - COLONOSCOPY W/BX 11/27/05 Two small polyps, diverticulosis - EGD W/O OR W/BRUSH/WASH 01/22/2004 EGD - EGD W/O OR W/BRUSH/WASH 02/02/2014 EGD - EGD W/O OR W/BRUSH/WASH 02/16/14 EGD repeat 2 years - EGD W/O OR W/BRUSH/WASH 12/02/2015 EGD repeat 1 year - EGD W/REM FB STOMACH/DUOD 01/14/07 [facility] ER - ESOPH W/O [facility] SPEC BALLOON DIL 09/06/10 with bx - HEMORRHOIDECT INTER/EXTER SIMP 11/30/05 - KNEE SCOPE,DIAGNOSTIC 1998 Arthroscopy, knee, Left - DE ANESTH,REPAIR UPPER ABD HERNIA NOS 2001 - TOTAL KNEE REPLACEMENT Left 07/10/2016 Knee replacement, total - VASECTOMY 02/24/09 FAMILY HISTORY Problem Relation Age of Onset - Stroke Father - Coronary Artery Disease Father at age 84 - Hypertension Mother age 92, natural causes. - Parkinsons [OTHER] Brother age 84 Current Outpatient Prescriptions: atorvastatin (LIPITOR) 10 mg tablet Take 1 tablet by mouth daily at bedtime. For cholesterol. Disp: 90 tablet Rfl: 3 triamterene-hydrochlorothiazide (DYAZIDE) 37.5-25 mg per capsule Take 1 capsule by mouth once daily. Disp: 90 capsule Rfl: 3 Omeprazole (PRILOSEC) 40 mg capsule Take 1 capsule by mouth once daily. Disp: 90 capsule Rfl: 3 Compression Knee Highs KNEE HIGH COMPRESSION STOCKINGS 20- 30 MM HG. DX: ICD9: 454.1, ICD10: I83.12, I83.11. ICD9: 459.30, ICD10: I87.301 Disp: 1 Each Rfl: 0 No current facility-administered medications for this visit. SOCIAL HISTORY: Patient is . He has never smoked and reports his alcohol use as occasionally. PHYSICAL EXAMINATION: Blood pressure 136/76, pulse 62, height 172.7 cm (5' 8ANDquot;), weight 98.9 kg (218 lb). General Appearance: Well appearing, alert, in no acute distress, well-hydrated, well nourished. Skin: Skin color, texture, turgor normal, no suspicious rashes or lesions. Eyes: Anicteric sclera. Oropharynx: Lips, mucosa, and tongue normal, teeth and gums normal, oropharynx normal. Neck: Supple, no adenopathy. Lungs: Lungs clear to auscultation. No wheezing, rhonchi, rales. Heart: RRR without murmur. Abdomen: Abdomen soft, non-tender. Bowel sounds normal. No masses, organomegaly. Extremities: No deformities. Positive for skin discoloration RLE. Impression: Mobley's Plan: The patient is scheduled for upper endoscopy. Preparation for the procedure and the procedure itself have been explained in detail. The risks, benefits, anticipated outcomes and possible complications were mentioned. I also explained the procedure in understandable terms and the patient was given printed material concerning the planned procedure. The patient had the opportunity to ask questions concerning the planned procedure. The patient freely consents to the planned procedure. The patient is asked to call with any questions or concerns, or if there is a change in health status between now and the scheduled procedure. I have personally interviewed and examined this patient. I have read the information that the LOULOU documented in this encounter. This visit was at least 25 minutes in length with a majority of the time spent in review of the past records with the patient, discussion and counseling. Rita Juárez RN DENTAL TECHNICIAN.LOAD PLANNER Rita Juárez RN DENTAL TECHNICIAN.LOAD PLANNER 12/14/2017 8:41 AM Addendum Please follow the instructions for upper endoscopy. Your procedure will be with Dr. Cano, on Sunday, December 24. Referring Provider: MATTHEW CARRILLO [[id number]] Allergies As of Date: 12/14/2017 Noted Allergy Reaction TETANUS VACCINES AND TOXOID 11/06/2005 Date Reviewed: 12/14/2017 Reviewed by: Leila Quintana MA - Fully Assessed Reason for Visit: Consult [502] Primary Visit Diagnosis:Mobley's esophagus with dysplasia [K22.719] Order(s):EGD [[id number]] Order #: [id number] FUTURE Prescriptions as of 12/14/2017 Sig: ATORVASTATIN 10 MG TABLET Take 1 tablet by mouth daily * TRIAMTERENE 37.5 MG-HYDROCHLO* Take 1 capsule by mouth once * OMEPRAZOLE 40 MG CAPSULE,FATOUMATA* Take 1 capsule by mouth once * COMPOUNDED PRESCRIPTION KNEE HIGH COMPRESSION STOCKIN* Problem List As Of Date 12/14/2017 Noted Resolved Internal Hemorrhoids without Mention of Complic*INVALID FOR*05/05/2010 More... 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 Esophageal Reflux [K21.9] INVALID FOR* More... More... Sterilization [Z30.2] INVALID FOR*05/05/2010 Mobley's Esophagus [K22.70] INVALID FOR* Esophagitis, unspecified [K20.9] INVALID FOR*11/03/2016 More... Elevated fasting lipid profile [E78.5] INVALID FOR* More... Closed fracture of shaft of metacarpal bone(s) *INVALID FOR*09/30/2014 Stasis edema [I87.309] INVALID FOR* More... Essential hypertension [I10] INVALID FOR* Osteoarthritis of left knee [M17.12] INVALID FOR* Ventral hernia without obstruction or gangrene *INVALID FOR* Other instructions from your clinician: Please follow the instructions for upper endoscopy. Your procedure will be with Dr. Cano, on December 24. Encounter Status:Closed by RITA JUÁREZ CNP on 12/14/17 HOSP Observed: 12/14/2017 Status: COMPLETED Source: [place] 12:00 AM [facility] REPOSITORY Patient:Keven Salmeron MRN: <[id number]> Height:5' 8(1.727 m) Weight:218 lb 0.6 oz (98.9 kg) Outpatient Medications as of 12/24/17: atorvastatin (LIPITOR) 10 mg tablet triamterene-hydrochlorothiazide (DYAZIDE) 37.5-25 mg per capsule Omeprazole (PRILOSEC) 40 mg capsule Compression Knee Highs Admission/Clinic Administered Medications as of 12/24/17: lactated ringers infusion Problem List: POLYP COLON [D12.6] Esophageal reflux [K21.9] Mobley's esophagus [K22.70] Elevated fasting lipid profile [E78.5] Stasis edema [I87.309] Essential hypertension [I10] Osteoarthritis of left knee [M17.12] Ventral hernia without obstruction or gangrene [K43.9] Mobley's esophagus with dysplasia [K22.719] Allergies: Tetanus Vaccines And Toxoid Date Verified: 12/24/17 Lab Values No results within the last 30 days for the following basenames: K,HCT Progress Notes ([facility]): Leila Quintana MA 12/14/2017 10:13 AM Signed AMBULATORY PATIENT EDUCATION NOTE READINESS TO LEARN Cogntitive ability: Alert and oriented Motivation to learn: Interested Family support: Unable to assess - family not present Instruction provided to: Patient Patient learns best by: Individual instruction, written instruction (hand-outs), and verbal instruction. Factors affecting learning: None Physical limitations affecting learning: None LEARNING RESPONSE Diagnosis: Mobley's Esophagus with Dysplasia Education topic/teaching points: Upper Endoscopy METHOD OF INSTRUCTION:Teachback:Individual instruction, written instruction (hand-outs), and verbal instruction. Patient/family response: Verbalizes understanding of pre-procedure instructions. Follow-up plan: Complete - No need for follow-up Supplemental material: None Patient instructed to check insurance benefits and precertification.Patient instructed to bring in advanced directives if applicable. Referral Entered: No Does patient have a Pacemaker or Defibrillator? No Electronically Signed By: Leila Quintana MA In department: Gastroenterology COMP METABOLIC PANEL Collected: 11/09/2017 Status: F Source: [place] 9:45 AM [facility] REPOSITORY TYPE CODE TESTS RESULT OUT OF REFERENCE UNITS RANGE LAB TP 6.3-8.0 g/dL Protein, Total 7.3 LAB ALB 3.9-4.9 g/dL Albumin 4.3 LAB CA 8.5-10.2 mg/dL Calcium, Total 9.1 LAB TBIL 0.2-1.3 mg/dL Bilirubin, Total 0.4 LAB ALKP 36-108 U/L Alkaline Phosphatase 88 LAB AST 14-40 U/L AST 20 LAB GLU 74-99 mg/dL Glucose High 108 Result Comment: The [place] [employer] (ADA) provides guidance for cutoff values for fasting glucose and random glucose. The ADA defines fasting as no caloric intake for at least 8 hours. Fas ting plasma glucose results between 100 to 125 mg/dL indicate increased risk for diabetes (prediabetes). Fasting plasma glucose results greater than or equal to 126 mg/dL meet the criteria for diagnosis of diabetes. In the absence of unequivocal hyperglycemia, results should be confirmed by repeat testing. In a patient with classic symptoms of hyperglycemia or hyperglycemic crisis, random plasma glucose results greater than or equal to 200 mg/dL meet the criteria for diagnosis of diabetes. Reference: Standards of Medical Care in Diabetes 2016, [place] [employer]. Diabetes Care. 2016.39(Suppl 1). LAB BUN 9-24 mg/dL BUN 23 LAB CRET 0.73-1.22 mg/dL Creatinine 1.15 LAB NA 136-144 mmol/L Sodium 143 LAB K 3.7-5.1 mmol/L Potassium 3.9 LAB CL 97-105 mmol/L Chloride 103 LAB CO2 22-30 mmol/L CO2 27 LAB AGAP 9-18 mmol/L Anion Gap 13 LAB ALT 10-54 U/L ALT 19 LAB GFRAA eGFR- Amer. >60 LAB GFRNAA . eGFR-All Other Races >60 Result Comment: eGFR (Estimated GFR) Units of measure: mL/min/1.73 meters squared eGFR is derived from the reexpressed MDRD Study equation using the following parameters: serum creatinine, age, gender and race. The creatinine assay has been calibrated to be traceable to IDMS. An eGFR <60 mL/min/1.73m2 for >3 months is consistent with chronic kidney disease. Refer to KDOQI guidelines for clinical interpretation. In patients with unstable renal function, e.g. those with acute kidney injury, the eGFR may not accurately reflect actual GFR. Performed By: #### CMP, LIPNF, HBA1C #### [facility] [address] [place], [place] [address] LIPID PANEL, NONFAST Collected: 11/09/2017 Status: F Source: [place] 9:45 AM [facility] REPOSITORY TYPE CODE TESTS RESULT OUT OF REFERENCE UNITS RANGE LAB CHOLNF <200 mg/dL Total High Cholesterol NF 204 Result Comment: <200 mg/dL, Desirable 200-239 mg/dL, Borderline high >239 mg/dL, High LAB TRIGNF <150 mg/dL Triglycerides, NF 117 Result Comment: <150 mg/dL, Normal 150-199 mg/dL, Borderline high 200-499 mg/dL, High >499 mg/dL, Very high LAB HDLNF >39 mg/dL HDL Cholesterol, NF 55 Result Comment: 40-59 mg/dL, Acceptable >59 mg/dL, High: Negative risk factor for coronary heart disease <40 mg/dL, Low: Positive risk factor for coronary heart disease LAB LDLNF <100 mg/dL LDL Cholesterol, High NF 126 Result Comment: <100 mg/dL, Optimal 100-129 mg/dL, Near optimal/above optimal 130-159 mg/dL, Borderline high 160-189 mg/dL, High >189 mg/dL, Very high Secondary prevention optimal LDL Cholesterol levels are recommended to be < 70 mg/dL LAB NOHDLN <130 mg/dL High Non HDL Chol, 149 NF Result Comment: <130 mg/dL, Optimal 130-159 mg/dL, Near optimal/above optimal 160-189 mg/dL, Borderline high 190-219 mg/dL, High >219 mg/dL, Very high Secondary prevention optimal non HDL Cholesterol levels are recommended to be < 100 mg/dL LAB VLDLNF <30 mg/dL VLDL Cholesterol, NF 23 LAB TCHDLN <5.10 mg/dL T Chol/HDL Ratio NF 3.71 LAB LDLHDN <2.54 mg/dL LDL/HDL Ratio, NF 2.29 Result Comment: Reference: 1. National Cholesterol Education Program ATP III Guideline At-A-Glance Quick Desk Reference: National Heart, Lung, and Blood [place]. National Institutes of Health. 2001: NIH Publication No. 01-3305. 2. An International Atherosclerosis Society position paper: global recommendations for the management of dyslipidemia: executive summary, Atherosclerosis. 2014: 232(2):410-413. Performed By: #### CMP, LIPNF, HBA1C #### [facility] [address] [place] [id number] HEMOGLOBIN A1C Collected: 11/09/2017 Status: F Source: [place] 9:45 AM [facility] REPOSITORY TYPE CODE TESTS RESULT OUT OF REFERENCE UNITS RANGE LAB HGBA1C 4.3-5.6 % High Hemoglobin A1c 5.7 LAB HBA0 mg/dL Est. Average Glucose 117 Result Comment: eAG: (Estimated average glucose) is a calculated value from HgbA1c and is passenger service representative of the average blood glucose level in the last 2-3 month period. Performed By: #### CMP, LIPNF, HBA1C #### [facility] [address] [place] [id number] PROGRESS Observed: 11/09/2017 Status: COMPLETED Source: [place] 9:26 AM [facility] REPOSITORY HNO ID: [id number] Author: Matthew Carrillo Service: (none) Author Type: Physician Type: Progress Notes Filed: 11/09/2017 9:47 AM Note Text: This note was created using Jangl SMSriter. Subjective Keven Salmeron is a 77 year old male was here for a follow up. He was constipated traveling abroad. When he returned, he noted a bulge above his previous hernia repair. He had no other symptoms with this. His hypertension and edema were controlled. He did not return for follow up labs on kidney insufficiency last year. His upper endoscopy surveillance for Mobley's was due next month. He was recovering from an upper respiratory infection for a few days. ACTIVE PROBLEM LIST POLYP COLON Esophageal Reflux Mobley's Esophagus Elevated Fasting Lipid Profile Stasis Edema Essential Hypertension Osteoarthritis of Left Knee Ventral Hernia Without Obstruction Or Gangrene Current Outpatient Prescriptions: triamterene-hydrochlorothiazide (DYAZIDE) 37.5-25 mg per capsule Take 1 capsule by mouth once daily. Omeprazole (PRILOSEC) 40 mg capsule Take 1 capsule by mouth once daily. Compression Knee Highs KNEE HIGH COMPRESSION STOCKINGS 20- 30 MM HG. DX: ICD9: 454.1, ICD10: I83.12, I83.11. ICD9: 459.30, ICD10: I87.301 No current facility-administered medications for this visit. Review of Systems Constitutional: Negative. HENT: Positive for congestion. Negative for ear pain, sinus pressure and sore throat. Eyes: Negative. Respiratory: Positive for cough. Negative for shortness of breath and wheezing. Cardiovascular: Positive for leg swelling. Negative for chest pain and palpitations. Genitourinary: Negative. Musculoskeletal: Negative. Skin: Negative. Neurological: Negative. Psychiatric/Behavioral: Negative. Objective BP 124/76 (BP Site: Left Arm, BP Position: Sitting, BP Cuff Size: Regular Adult) Pulse 72 Resp 18 Ht 171.5 cm (5' 7.5) Wt 99.8 kg (220 lb) BMI 33.95 kg/m2 Physical Exam Constitutional: He appears well-nourished. No distress. HENT: Right Ear: Tympanic membrane normal. Left Ear: Tympanic membrane is scarred. Nose: Mucosal edema present. No rhinorrhea. Mouth/Throat: Oropharynx is clear and moist. Neck: Carotid bruit is not present. Cardiovascular: S1 normal and S2 normal. Exam reveals no gallop. No murmur heard. Pulmonary/Chest: Effort normal and breath sounds normal. Abdominal: Soft. He exhibits no mass. There is no tenderness. There is no rigidity and no guarding. A hernia is present. Hernia confirmed positive in the ventral area. Musculoskeletal: He exhibits edema. 1-2+ edema. Lymphadenopathy: He has no cervical adenopathy. Neurological: He is alert. He exhibits normal muscle tone. Coordination normal. Skin: No rash noted. No erythema. Psychiatric: He has a normal mood and affect. Assessment and Plan 1. Medicare annual wellness visit, initial - ICD9: V70.0, ICD10: Z00.00 (primary diagnosis) - See other note. - ECG COMPLETE W INTERPRETATION 2. Essential hypertension - ICD9: 401.9, ICD10: I10 - good control 3. Elevated fasting lipid profile - ICD9: 272.4, ICD10: E78.5 - to be determined upon return of lab results - LIPID PANEL, NONFASTING 4. Stasis edema of both lower extremities - ICD9: 459.30, ICD10: I87.303 Controlled. 5. Mobley's esophagus without dysplasia - ICD9: 530.85, ICD10: K22.70 Due for recheck. - CONSULT TO GASTROENTEROLOGY 6. Kidney insufficiency - ICD9: 593.9, ICD10: N28.9 Reviewed last year's concerns. Recheck today. - COMP METABOLIC PANEL 7. Ventral hernia without obstruction or gangrene - ICD9: 553.20, ICD10: K43.9 Small, non tender. Options discussed. Continue surveillance. Call for enlargement or symptoms. 8. Impaired fasting glucose - ICD9: 790.21, ICD10: R73.01 Recheck. - HGB A1C 9. Viral upper respiratory tract infection - ICD9: 465.9, ICD10: J06.9 - Discussed viral etiology and rationale for treatment. - Symptomatic treatment with prn analgesia - Supportive care with fluids and rest Matthew Carrillo MD PROGRESS Observed: 11/09/2017 Status: COMPLETED Source: [place] 9:17 AM [facility] REPOSITORY HNO ID: [id number] Author: Matthew Carrillo Service: (none) Author Type: Physician Type: Progress Notes Filed: 11/09/2017 9:47 AM Note Text: Welcome To Medicare Visit Medical B eligibility date 2017 Date of last exam N/A PAST MEDICAL HISTORY Diagnosis Date - Mobley's esophagus 05/05/2010 - Closed fracture of shaft of metacarpal bone(s) 09/18/2011 - DIVERTICULOSIS COLON - NO HEMORRHAGE 11/28/2005 - Edema 03/13/2006 - Esophageal reflux 10/16/2008 - Esophagitis, unspecified - Essential hypertension 04/25/2016 - GENERAL OSTEOARTHROSIS 1998 Left knee. Arthroscopy 1998. - INT HEMORRHOID W/O COMPL 11/06/2005 Restarted Proctocream in 09-28 - LEG VARICOSITY W INFLAM 03/13/2006 - Osteoarthritis of left knee 04/25/2016 - POLYP COLON 11/28/2005 - Snoring - Stricture and stenosis of esophagus PAST SURGICAL HISTORY Procedure Laterality Date - APPENDECTOMY 1955 - COLONOSCOP W/ OR W/O [facility] SPEC 09/06/10 - COLONOSCOP W/ OR W/O [facility] SPEC N/A 11/23/2016 - COLONOSCOPY W/BX 11/27/05 Two small polyps, diverticulosis - EGD W/O OR W/BRUSH/WASH 01/22/2004 EGD - EGD W/O OR W/BRUSH/WASH 02/02/2014 EGD - EGD W/O OR W/BRUSH/WASH 02/16/14 EGD repeat 2 years - EGD W/O OR W/BRUSH/WASH 12/02/2015 EGD repeat 1 year - EGD W/REM FB STOMACH/DUOD 01/14/07 [facility] ER - ESOPH W/O [facility] SPEC BALLOON DIL 09/06/10 with bx - HEMORRHOIDECT INTER/EXTER SIMP 11/30/05 - KNEE SCOPE,DIAGNOSTIC 1998 Arthroscopy, knee, Left - DE ANESTH,REPAIR UPPER ABD HERNIA NOS 2001 - TOTAL KNEE REPLACEMENT Left 07/10/2016 Knee replacement, total - VASECTOMY 02/24/09 Tetanus Vaccines And Toxoid Medications reviewed: Yes FAMILY HISTORY Problem Relation Age of Onset - Stroke Father - Coronary Artery Disease Father at age 84 - Hypertension Mother age 92, natural causes. - Parkinsons [OTHER] Brother age 84 SOCIAL HISTORY: Social History Marital status: Spouse name: Years of education: Number of children: 3 Occupational History Occupation Employer Comment [employer] * Social History Main Topics Smoking status: Never Smoker Smokeless status: Never Used Alcohol use: Yes Comment: 2 glasses/month Drug use: No Social History Narrative September 29, 2014: Lives with . 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 Ambulatory. Keven works out regularly 3 times per week with [employer] care trainer and rowing machines. He watches his diet for sodium, low fat and low cholesterol some of the time. List of current specialists seen: None. End of Live Planning discussed including patients advanced directive wishes: Yes I am willing to follow Keven's advanced directives. Depression screen He in the past two weeks denies having felt down, depressed, hopeless or with little interest or pleasure in doing things. Functional Ability/Safety Screen 1. Was the patient's timed Up and Go test unsteady or longer than 30 seconds? No 2. Does the patient need help with the phone, transportation, shopping,preparing meals, housework, laundry, medications or managing money? No 3. Does your home have rugs in the hallway, lack of grab bars in the bathroom, lack of handrails on the stairs or have poor lighting? No Hearing Evaluation: normal PHYSICAL EXAM BP 124/76 (BP Site: Left Arm, BP Position: Sitting, BP Cuff Size: Regular Adult) Pulse 72 Resp 18 Ht 171.5 cm (5' 7.5) Wt 99.8 kg (220 lb) BMI 33.95 kg/m2 Alert and oriented X 3: YES Body mass index is 33.95 kg/(m2). Visual acuity: see vision tab. Screening ECG performed today: ASSESSMENT/PLAN: 77 year old male The following prevention plan was discussed during the office visit and provided to the patient: - Weight Loss - Glaucoma screening - Lipid panel - Fasting Blood sugar Matthew Carrillo MD CNOV Observed: 11/09/2017 Status: COMPLETED Source: [place] 8:40 AM [facility] REPOSITORY Office Visit (INTMWS) KEVEN SALMERON ([id number]) 1940 M Date Time Provider Department 11/09/17 8:40 AM MATTHEW CARRILLO INTMWS During your visit today, we recorded the following information about you: Pulse Respiration Blood pressure Weight 72/minute 18/minute 124/76 99.8 kg Height 1.715 m Matthew Carrillo MD 11/09/2017 9:47 AM Signed Welcome To Medicare Visit Medical B eligibility date 2017 Date of last exam N/A PAST MEDICAL HISTORY Diagnosis Date - Mobley's esophagus 05/05/2010 - Closed fracture of shaft of metacarpal bone(s) 09/18/2011 - DIVERTICULOSIS COLON - NO HEMORRHAGE 11/28/2005 - Edema 03/13/2006 - Esophageal reflux 10/16/2008 - Esophagitis, unspecified - Essential hypertension 04/25/2016 - GENERAL OSTEOARTHROSIS 1998 Left knee. Arthroscopy 1998. - INT HEMORRHOID W/O COMPL 11/06/2005 Restarted Proctocream in - - LEG VARICOSITY W INFLAM 03/13/2006 - Osteoarthritis of left knee 04/25/2016 - POLYP COLON 11/28/2005 - Snoring - Stricture and stenosis of esophagus PAST SURGICAL HISTORY Procedure Laterality Date - APPENDECTOMY 1955 - COLONOSCOP W/ OR W/O [facility] SPEC 09/06/10 - COLONOSCOP W/ OR W/O [facility] SPEC N/A 11/23/2016 - COLONOSCOPY W/BX 11/27/05 Two small polyps, diverticulosis - EGD W/O OR W/BRUSH/WASH 01/22/2004 EGD - EGD W/O OR W/BRUSH/WASH 02/02/2014 EGD - EGD W/O OR W/BRUSH/WASH 02/16/14 EGD repeat 2 years - EGD W/O OR W/BRUSH/WASH 12/02/2015 EGD repeat 1 year - EGD W/REM FB STOMACH/DUOD 01/14/07 [facility] ER - ESOPH W/O [facility] SPEC BALLOON DIL 09/06/10 with bx - HEMORRHOIDECT INTER/EXTER SIMP 11/30/05 - KNEE SCOPE,DIAGNOSTIC 1998 Arthroscopy, knee, Left - DE ANESTH,REPAIR UPPER ABD HERNIA NOS 2001 - TOTAL KNEE REPLACEMENT Left 07/10/2016 Knee replacement, total - VASECTOMY 02/24/09 Tetanus Vaccines And Toxoid Medications reviewed: Yes FAMILY HISTORY Problem Relation Age of Onset - Stroke Father - Coronary Artery Disease Father at age 84 - Hypertension Mother age 92, natural causes. - Parkinsons [OTHER] Brother age 84 SOCIAL HISTORY: Social History Marital status: Spouse name: Years of education: Number of children: 3 Occupational History Occupation Employer Comment [employer] * Social History Main Topics Smoking status: Never Smoker Smokeless status: Never Used Alcohol use: Yes Comment: 2 glasses/month Drug use: No Social History Narrative September 29, 2014: Lives with . 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 Keven works out regularly 3 times per week with [employer] care trainer and rowing machines. He watches his diet for sodium, low fat and low cholesterol some of the time. List of current specialists seen: None. End of Live Planning discussed including patients advanced directive wishes: Yes I am willing to follow Keven's advanced directives. Depression screen He in the past two weeks denies having felt down, depressed, hopeless or with little interest or pleasure in doing things. Functional Ability/Safety Screen 1. Was the patient's timed Up and Go test unsteady or longer than 30 seconds? No 2. Does the patient need help with the phone, transportation, shopping,preparing meals, housework, laundry, medications or managing money? No 3. Does your home have rugs in the hallway, lack of grab bars in the bathroom, lack of handrails on the stairs or have poor lighting? No Hearing Evaluation: normal PHYSICAL EXAM BP 124/76 (BP Site: Left Arm, BP Position: Sitting, BP Cuff Size: Regular Adult) Pulse 72 Resp 18 Ht 171.5 cm (5' 7.5ANDquot;) Wt 99.8 kg (220 lb) BMI 33.95 kg/m2 Alert and oriented X 3: YES Body mass index is 33.95 kg/(m2). Visual acuity: see vision tab. Screening ECG performed today: ASSESSMENT/PLAN: 77 year old male The following prevention plan was discussed during the office visit and provided to the patient: - Weight Loss - Glaucoma screening - Lipid panel - Fasting Blood sugar MD Matthew hSearer MD 11/09/2017 9:47 AM Signed This note was created using NoteWriter. Subjective Keven Salmeron is a 77 year old male was here for a follow up. He was constipated traveling abroad. When he returned, he noted a bulge above his previous hernia repair. He had no other symptoms with this. His hypertension and edema were controlled. He did not return for follow up labs on kidney insufficiency last year. His upper endoscopy surveillance for Mobley's was due next month. He was recovering from an upper respiratory infection for a few days. ACTIVE PROBLEM LIST POLYP COLON Esophageal Reflux Mobley's Esophagus Elevated Fasting Lipid Profile Stasis Edema Essential Hypertension Osteoarthritis of Left Knee Ventral Hernia Without Obstruction Or Gangrene Current Outpatient Prescriptions: triamterene-hydrochlorothiazide (DYAZIDE) 37.5-25 mg per capsule Take 1 capsule by mouth once daily. Omeprazole (PRILOSEC) 40 mg capsule Take 1 capsule by mouth once daily. Compression Knee Highs KNEE HIGH COMPRESSION STOCKINGS 20- 30 MM HG. DX: ICD9: 454.1, ICD10: I83.12, I83.11. ICD9: 459.30, ICD10: I87.301 No current facility-administered medications for this visit. Review of Systems Constitutional: Negative. HENT: Positive for congestion. Negative for ear pain, sinus pressure and sore throat. Eyes: Negative. Respiratory: Positive for cough. Negative for shortness of breath and wheezing. Cardiovascular: Positive for leg swelling. Negative for chest pain and palpitations. Genitourinary: Negative. Musculoskeletal: Negative. Skin: Negative. Neurological: Negative. Psychiatric/Behavioral: Negative. Objective BP 124/76 (BP Site: Left Arm, BP Position: Sitting, BP Cuff Size: Regular Adult) Pulse 72 Resp 18 Ht 171.5 cm (5' 7.5ANDquot;) Wt 99.8 kg (220 lb) BMI 33.95 kg/m2 Physical Exam Constitutional: He appears well-nourished. No distress. HENT: Right Ear: Tympanic membrane normal. Left Ear: Tympanic membrane is scarred. Nose: Mucosal edema present. No rhinorrhea. Mouth/Throat: Oropharynx is clear and moist. Neck: Carotid bruit is not present. Cardiovascular: S1 normal and S2 normal. Exam reveals no gallop. No murmur heard. Pulmonary/Chest: Effort normal and breath sounds normal. Abdominal: Soft. He exhibits no mass. There is no tenderness. There is no rigidity and no guarding. A hernia is present. Hernia confirmed positive in the ventral area. Musculoskeletal: He exhibits edema. 1-2+ edema. Lymphadenopathy: He has no cervical adenopathy. Neurological: He is alert. He exhibits normal muscle tone. Coordination normal. Skin: No rash noted. No erythema. Psychiatric: He has a normal mood and affect. Assessment and Plan 1. Medicare annual wellness visit, initial - ICD9: V70.0, ICD10: Z00.00 (primary diagnosis) - See other note. - ECG COMPLETE W INTERPRETATION 2. Essential hypertension - ICD9: 401.9, ICD10: I10 - good control 3. Elevated fasting lipid profile - ICD9: 272.4, ICD10: E78.5 - to be determined upon return of lab results - LIPID PANEL, NONFASTING 4. Stasis edema of both lower extremities - ICD9: 459.30, ICD10: I87.303 Controlled. 5. Mobley's esophagus without dysplasia - ICD9: 530.85, ICD10: K22.70 Due for recheck. - CONSULT TO GASTROENTEROLOGY 6. Kidney insufficiency - ICD9: 593.9, ICD10: N28.9 Reviewed last year's concerns. Recheck today. - COMP METABOLIC PANEL 7. Ventral hernia without obstruction or gangrene - ICD9: 553.20, ICD10: K43.9 Small, non tender. Options discussed. Continue surveillance. Call for enlargement or symptoms. 8. Impaired fasting glucose - ICD9: 790.21, ICD10: R73.01 Recheck. - HGB A1C 9. Viral upper respiratory tract infection - ICD9: 465.9, ICD10: J06.9 - Discussed viral etiology and rationale for treatment. - Symptomatic treatment with prn analgesia - Supportive care with fluids and rest Matthew Carrillo MD Referring Provider: MATTHEW CARRILLO [[id number]] Allergies As of Date: 11/09/2017 Noted Allergy Reaction TETANUS VACCINES AND TOXOID 11/06/2005 Date Reviewed: 11/09/2017 Reviewed by: Viv Le LPN - Fully Assessed Reason for Visit: Physical [83] Cmt: possible hernia Primary Visit Diagnosis:Medicare annual wellness visit, initial [Z00.00] Other Visit Diagnoses:Essential hypertension [I10] Elevated fasting lipid profile [E78.5] Stasis edema of both lower extremities [I87.303] Mobley's esophagus without dysplasia [K22.70] Kidney insufficiency [N28.9] Ventral hernia without obstruction or gangrene [K43.9] Impaired fasting glucose [R73.01] Viral upper respiratory tract infection [J06.9] Order(s):ECG COMPLETE W INTERPRETATION [ECG01] Order #: [id number] FUTURE COMP METABOLIC PANEL [SQCMP] Order #: [id number] FUTURE LIPID PANEL, NONFASTING [SQLIPNF] Order #: [id number] FUTURE CONSULT TO GASTROENTEROLOGY [9010] Order #: [id number]: 1 HGB A1C [CMUBF8S] Order #: [id number] FUTURE Prescriptions as of 11/09/2017 Sig: TRIAMTERENE 37.5 MG-HYDROCHLO* Take 1 capsule by mouth once * OMEPRAZOLE 40 MG CAPSULE,FATOUMATA* Take 1 capsule by mouth once * COMPOUNDED PRESCRIPTION KNEE HIGH COMPRESSION STOCKIN* Medication notes this encounter DOXYCYCLINE MONOHYDRATE 100 MG CAPSULE >> Viv Le LPN 11/09/2017 8:48 AM >> VIV LE LPN SunNov 09, 2017 8:48 AM Not taking Problem List As Of Date 11/09/2017 Noted Resolved Internal Hemorrhoids without Mention of Complic*INVALID FOR*05/05/2010 More... 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 Esophageal Reflux [K21.9] INVALID FOR* More... More... Sterilization [Z30.2] INVALID FOR*05/05/2010 Mobley's Esophagus [K22.70] INVALID FOR* Esophagitis, unspecified [K20.9] INVALID FOR*11/03/2016 More... Elevated fasting lipid profile [E78.5] INVALID FOR* More... Closed fracture of shaft of metacarpal bone(s) *INVALID FOR*09/30/2014 Stasis edema [I87.309] INVALID FOR* More... Essential hypertension [I10] INVALID FOR* Osteoarthritis of left knee [M17.12] INVALID FOR* Ventral hernia without obstruction or gangrene *INVALID FOR* Medications Discontinued During This Encounter doxycycline monohydrate (MONODOX) 10* 30 c* 1 08/09/2017 11/09/2017 Class: Print RX Route: ORAL Sig: Take 1 capsule by mouth once daily. Disc: Reason for discontinue is not on file. Disposition: Return in about 6 months (around 05/12/2018), or if symptoms worsen or fail to improve. Follow-up and Disposition History Recorded Encounter Status:Closed by MATTHEW CARRILLO MD on 11/09/17 PROGRESS Observed: 08/09/2017 Status: COMPLETED Source: [place] 10:31 AM [facility] REPOSITORY HNO ID: [id number] Author: Taty (Andrew) Older Service: (none) Author Type: Nurse Practitioner Type: Progress Notes Filed: 08/09/2017 11:09 AM Note Text: CC: Medication for travel and right lower leg pain HPI Keven Salmeron is a 77 year old male who presents today for above complaints. Patient will be going to [facility] and then [facility]. Leaving October 04 and will be gone for two weeks. All immunizations up to date except flu shot. Previously vaccinated for Hepatitis A, yellow fever and typhoid. Pain in right lower leg x 2 days. Intermittent, described as sharp. Keeps him up at night. Nothing aggravates pain. No known triggers. Repositions and eventually goes away. Has not treated with anything. Positive for chronic swelling in right leg greater than left. No worse than usual. No injury. No increase in activity. No leg numbness, tingling or weakness. Modified Wells Rule for DVT (1pt each) - active cancer (tx or palliation in last 6mo)= 0 - paralysis, paresis or recent leg casting= 0 - bedridden >3D/major surgery w/in 4 wks= 0 - localized tenderness along deep venous system= 0 - entire ext swollen= 1 - unilateral calf swelling >3cm below Tibial tuberosity= 1 - unilateral pitting edema= 1 - prominent non-varicose collateral superficial veins= 0 Score -2 if alt dx as likely as DVT= -2 Score Total: 1 Pretest probabilty: High >= 3, Intermediate 1-2, Low 0 REVIEW OF SYSTEMS Respiratory: no shortness of breath, no hemoptysis Cardiovascular: no chest pain and no palpitations PAST MEDICAL HISTORY Diagnosis Date - Mobley's esophagus 05/05/2010 - Closed fracture of shaft of metacarpal bone(s) 09/18/2011 - DIVERTICULOSIS COLON - NO HEMORRHAGE 11/28/2005 - Edema 03/13/2006 - Esophageal reflux 10/16/2008 - Esophagitis, unspecified - Essential hypertension 04/25/2016 - GENERAL OSTEOARTHROSIS 1998 Left knee. Arthroscopy 1998. - INT HEMORRHOID W/O COMPL 11/06/2005 Restarted Proctocream in - - LEG VARICOSITY W INFLAM 03/13/2006 - Osteoarthritis of left knee 04/25/2016 - POLYP COLON 11/28/2005 - Snoring - Stricture and stenosis of esophagus PAST SURGICAL HISTORY Procedure Laterality Date - APPENDECTOMY 1955 - COLONOSCOP W/ OR W/O [facility] SPEC 09/06/10 - COLONOSCOP W/ OR W/O [facility] SPEC N/A 11/23/2016 - COLONOSCOPY W/BX 11/27/05 Two small polyps, diverticulosis - EGD W/O OR W/BRUSH/WASH 01/22/2004 EGD - EGD W/O OR W/BRUSH/WASH 02/02/2014 EGD - EGD W/O OR W/BRUSH/WASH 02/16/14 EGD repeat 2 years - EGD W/O OR W/BRUSH/WASH 12/02/2015 EGD repeat 1 year - EGD W/REM FB STOMACH/DUOD 01/14/07 [facility] ER - ESOPH W/O [facility] SPEC BALLOON DIL 09/06/10 with bx - HEMORRHOIDECT INTER/EXTER SIMP 11/30/05 - KNEE SCOPE,DIAGNOSTIC 1998 Arthroscopy, knee, Left - DE ANESTH,REPAIR UPPER ABD HERNIA NOS - TOTAL KNEE REPLACEMENT Left 07/10/2016 Knee replacement, total - VASECTOMY 02/24/09 ALLERGIES Tetanus Vaccines And Toxoid MEDICATIONS triamterene-hydrochlorothiazide (DYAZIDE) 37.5-25 mg per capsule Take 1 capsule by mouth once daily. Omeprazole (PRILOSEC) 40 mg capsule Take 1 capsule by mouth once daily. Compression Knee Highs KNEE HIGH COMPRESSION STOCKINGS 20- 30 MM HG. DX: ICD9: 454.1, ICD10: I83.12, I83.11. ICD9: 459.30, ICD10: I87.301 FAMILY HISTORY Problem Relation Age of Onset - Stroke Father - Coronary Artery Disease Father at age 84 - Hypertension Mother age 92, natural causes. - Parkinsons [OTHER] Brother age 84 Social History Substance Use Topics - Smoking status: Never Smoker - Smokeless tobacco: Never Used - Alcohol use Yes Comment: 2 glasses/month PHYSICAL EXAM BP 138/80 Pulse 63 Temp 36.7 ?C (98 ?F) (Temporal Artery) Resp 16 Wt 103 kg (227 lb) SpO2 97% BMI 34.52 kg/m2 General Appearance: well appearing, in no acute distress, alert Lungs: Lungs clear to auscultation. No wheezing, rhonchi, rales Heart: RRR without murmur, gallop, or rubs. No ectopy Lower Extremities: No deformities. Dark venous stasis changes to bilateral lower extremities. Good capillary refill. Pulses: 1+, Edema: 2+ moderately pitting in the right ankle and 1+ in the left ankle. Point tenderness right lateral wick. No cords. No calf tenderness. Estuardo's sign negative. INFLUENZA(1) due on 04/20/2017 DIABETES SCREEN due on 11/08/2019 LIPID SCREEN due on 11/07/2021 COLORECTAL CANCER SCREENING,SEE MODIFIER due on 11/23/2021 PROSTATE CANCER SCREENING DISCUSSION Completed ADULT PREVNAR-13 Completed PNEUMOVAX AGE 65 AND OVER WITH 5YR LOOKBACK Completed Prescription instructions reviewed with patient as applicable. Potential red flag symptoms discussed with the patient. Reviewed appropriate action plan to take if red flag symptoms occur. Patient agreeable to treatment plan. ASSESSMENT/PLAN: 1. Travel advice encounter - ICD9: V65.49, ICD10: Z71.89 (primary diagnosis) Given prescription for Doxycycline, see orders All other immunizations up to date, will get flu shot today 2. Need for vaccination - ICD9: V05.9, ICD10: Z23 - INFLUENZA SEASONAL HIGH DOSE AGE 65+ 3. Bilateral lower extremity edema - ICD9: 782.3, ICD10: R60.0 Symptoms and exam findings concerning for DVT, see Wells score Stat venous ultrasound today If negative for clot advised patient to try Tylenol or NSAID's for the pain. Wear compression socks and elevate legs to help with swelling Follow-up pending results of ultrasound - US LEG VEIN DVT [facility] 4. 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 [id number] Season Patient is identified by name and date of : Yes [] CONTRAINDICATIONS color enhanced section Age less than 6 months? No Allergy to eggs, chicken, chicken feathers, or chicken dander? No Allergy to thimerosal (a preservative) or formaldehyde? No History of severe reaction to any vaccine component or a previous dose of influenza vaccination? No History of Guillain-Warsaw Syndrome within 6 weeks after a previous influenza vaccine? No Current moderate or severe illness? No Current temperature greater or equal to 100.4F? No History of Bone Marrow Transplant in past 6 months or solid organ transplant in the past 3 months ? No [] VERIFICATION color enhanced section Was the answer Yes for any of the above contraindications? No contraindications present. Acceptable to proceed with vaccine. Patient/guardian agrees the above answers are true to the best of their knowledge? Yes Flu vaccine information sheet given? Yes See immunization activity in [facility] for details of immunizations adminstered today. Patient age: [age] year old For The 5727-4793 Flu Season 6-35 months old: Fluzone 0.25 ml - IM (Preservative Free) 3 years of age: Fluzone 0.5 ml - IM (Preservative Free) 3 years and older: Fluzone 0.5 ml- IM-(with Preservatives) 65+ years old: Fluzone High-Dose 0.5 ml - IM (Preservative Free) REMEMBER: If patient is less than 9 years of age and this is the first vaccine of Influenza to be received in any flu season, they should receive a second dose in one months time. CNOV Observed: 08/09/2017 Status: COMPLETED Source: [place] 10:20 AM [facility] Office Visit (INTMWS) KEVEN SALMERON ([id number]) 1940 M Date Time Provider Department 08/09/17 10:20 AM TATY WILLAMS (ANDREW) INTMWS During your visit today, we recorded the following information about you: Temperature Pulse Respiration Blood pressure 98 degrees 63/minute 16/minute 138/80 Weight 103 kg Taty Willams CNP 08/09/2017 11:09 AM Signed CC: Medication for travel and right lower leg pain HPI Keven Salmeron is a 77 year old male who presents today for above complaints. Patient will be going to [facility] and then [facility]. Leaving October 04 and will be gone for two weeks. All immunizations up to date except flu shot. Previously vaccinated for Hepatitis A, yellow fever and typhoid. Pain in right lower leg x 2 days. Intermittent, described as sharp. Keeps him up at night. Nothing aggravates pain. No known triggers. Repositions and eventually goes away. Has not treated with anything. Positive for chronic swelling in right leg greater than left. No worse than usual. No injury. No increase in activity. No leg numbness, tingling or weakness. Modified Wells Rule for DVT (1pt each) - active cancer (tx or palliation in last 6mo)= 0 - paralysis, paresis or recent leg casting= 0 - bedridden ANDgt;3D/major surgery w/in 4 wks= 0 - localized tenderness along deep venous system= 0 - entire ext swollen= 1 - unilateral calf swelling ANDgt;3cm below Tibial tuberosity= 1 - unilateral pitting edema= 1 - prominent non-varicose collateral superficial veins= 0 Score -2 if alt dx as likely as DVT= -2 Score Total: 1 Pretest probabilty: High ANDgt;= 3, Intermediate 1-2, Low 0 REVIEW OF SYSTEMS Respiratory: no shortness of breath, no hemoptysis Cardiovascular: no chest pain and no palpitations PAST MEDICAL HISTORY Diagnosis Date - Mobley's esophagus 05/05/2010 - Closed fracture of shaft of metacarpal bone(s) 09/18/2011 - DIVERTICULOSIS COLON - NO HEMORRHAGE 11/28/2005 - Edema 03/13/2006 - Esophageal reflux 10/16/2008 - Esophagitis, unspecified - Essential hypertension 04/25/2016 - GENERAL OSTEOARTHROSIS 1998 Left knee. Arthroscopy 1998. - INT HEMORRHOID W/O COMPL 11/06/2005 Restarted Proctocream in - - LEG VARICOSITY W INFLAM 03/13/2006 - Osteoarthritis of left knee 04/25/2016 - POLYP COLON 11/28/2005 - Snoring - Stricture and stenosis of esophagus PAST SURGICAL HISTORY Procedure Laterality Date - APPENDECTOMY 1955 - COLONOSCOP W/ OR W/O [facility] SPEC 09/06/10 - COLONOSCOP W/ OR W/O [facility] SPE[facility] N/A 11/23/2016 - COLONOSCOPY W/BX 11/27/05 Two small polyps, diverticulosis - EGD W/O OR W/BRUSH/WASH 01/22/2004 EGD - EGD W/O OR W/BRUSH/WASH 02/02/2014 EGD - EGD W/O OR W/BRUSH/WASH 02/16/14 EGD repeat 2 years - EGD W/O OR W/BRUSH/WASH 12/02/2015 EGD repeat 1 year - EGD W/REM FB STOMACH/DUOD 01/14/07 [facility] ER - ESOPH W/O [facility] SPEC BALLOON DIL 09/06/10 with bx - HEMORRHOIDECT INTER/EXTER SIMP 11/30/05 - KNEE SCOPE,DIAGNOSTIC 1998 Arthroscopy, knee, Left - DE ANESTH,REPAIR UPPER ABD HERNIA NOS - TOTAL KNEE REPLACEMENT Left 07/10/2016 Knee replacement, total - VASECTOMY 02/24/09 ALLERGIES Tetanus Vaccines And Toxoid MEDICATIONS triamterene-hydrochlorothiazide (DYAZIDE) 37.5-25 mg per capsule Take 1 capsule by mouth once daily. Omeprazole (PRILOSEC) 40 mg capsule Take 1 capsule by mouth once daily. Compression Knee Highs KNEE HIGH COMPRESSION STOCKINGS 20- 30 MM HG. DX: ICD9: 454.1, ICD10: I83.12, I83.11. ICD9: 459.30, ICD10: I87.301 FAMILY HISTORY Problem Relation Age of Onset - Stroke Father - Coronary Artery Disease Father at age 84 - Hypertension Mother age 92, natural causes. - Parkinsons [OTHER] Brother age 84 Social History Substance Use Topics - Smoking status: Never Smoker - Smokeless tobacco: Never Used - Alcohol use Yes Comment: 2 glasses/month PHYSICAL EXAM BP 138/80 Pulse 63 Temp 36.7 ?C (98 ?F) (Temporal Artery) Resp 16 Wt 103 kg (227 lb) SpO2 97% BMI 34.52 kg/m2 General Appearance: well appearing, in no acute distress, alert Lungs: Lungs clear to auscultation. No wheezing, rhonchi, rales Heart: RRR without murmur, gallop, or rubs. No ectopy Lower Extremities: No deformities. Dark venous stasis changes to bilateral lower extremities. Good capillary refill. Pulses: 1+, Edema: 2+ moderately pitting in the right ankle and 1+ in the left ankle. Point tenderness right lateral wick. No cords. No calf tenderness. Estuardo's sign negative. INFLUENZA(1) due on 04/20/2017 DIABETES SCREEN due on 11/08/2019 LIPID SCREEN due on 11/07/2021 COLORECTAL CANCER SCREENING,SEE MODIFIER due on 11/23/2021 PROSTATE CANCER SCREENING DISCUSSION Completed ADULT PREVNAR-13 Completed PNEUMOVAX AGE 65 AND OVER WITH 5YR LOOKBACK Completed Prescription instructions reviewed with patient as applicable. Potential red flag symptoms discussed with the patient. Reviewed appropriate action plan to take if red flag symptoms occur. Patient agreeable to treatment plan. ASSESSMENT/PLAN: 1. Travel advice encounter - ICD9: V65.49, ICD10: Z71.89 (primary diagnosis) Given prescription for Doxycycline, see orders All other immunizations up to date, will get flu shot today 2. Need for vaccination - ICD9: V05.9, ICD10: Z23 - INFLUENZA SEASONAL HIGH DOSE AGE 65+ 3. Bilateral lower extremity edema - ICD9: 782.3, ICD10: R60.0 Symptoms and exam findings concerning for DVT, see Wells score Stat venous ultrasound today If negative for clot advised patient to try Tylenol or NSAID's for the pain. Wear compression socks and elevate legs to help with swelling Follow-up pending results of ultrasound - US LEG VEIN DVT [facility] 4. 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 [id number] Season Patient is identified by name and date of : Yes [] CONTRAINDICATIONS color enhanced section Age less than 6 months? No Allergy to eggs, chicken, chicken feathers, or chicken dander? No Allergy to thimerosal (a preservative) or formaldehyde? No History of severe reaction to any vaccine component or a previous dose of influenza vaccination? No History of Guillain-Warsaw Syndrome within 6 weeks after a previous influenza vaccine? No Current moderate or severe illness? No Current temperature greater or equal to 100.4F? No History of Bone Marrow Transplant in past 6 months or solid organ transplant in the past 3 months ? No [] VERIFICATION color enhanced section Was the answer ANDquot;YesANDquot; for any of the above contraindications? No contraindications present. Acceptable to proceed with vaccine. Patient/guardian agrees the above answers are true to the best of their knowledge? Yes Flu vaccine information sheet given? Yes See immunization activity in [facility] for details of immunizations adminstered today. Patient age: [age] year old For The 3995-0253 Flu Season 6-35 months old: Fluzone 0.25 ml - IM (Preservative Free) 3 years of age: Fluzone 0.5 ml - IM (Preservative Free) 3 years and older: Fluzone 0.5 ml- IM-(with Preservatives) 65+ years old: Fluzone High-Dose 0.5 ml - IM (Preservative Free) REMEMBER: If patient is less than 9 years of age and this is the first vaccine of Influenza to be received in any flu season, they should receive a second dose in one months time. Referring Provider: MATTHEW CARRILLO [[id number]] Allergies As of Date: 08/09/2017 Noted Allergy Reaction TETANUS VACCINES AND TOXOID 11/06/2005 Date Reviewed: 08/09/2017 Reviewed by: Areli Gray Grapple Crew Leader - Fully Assessed Reason for Visit: Imm/Inj [58] Cmt: Flu Vaccine Primary Visit Diagnosis:Travel advice encounter [Z71.89] Other Visit Diagnoses:Need for vaccination [Z23] Bilateral lower extremity edema [R60.0] Pain in right lower leg [M79.661] Order(s):INFLUENZA SEASONAL HIGH DOSE AGE 65+ [59190EFN] Order #: [id number] LEG VEIN DVT [facility] [[id number]] Order #: [id number] FUTURE doxycycline monohydrate (MONODOX) 100 mg capsuleTake 1 capsule by mouth once daily.Disp: 30 capsuleRfl: 1 Prescriptions as of 08/09/2017 Sig: TRIAMTERENE 37.5 MG-HYDROCHLO* Take 1 capsule by mouth once * OMEPRAZOLE 40 MG CAPSULE,FATOUMATA* Take 1 capsule by mouth once * DOXYCYCLINE MONOHYDRATE 100 M* Take 1 capsule by mouth once * COMPOUNDED PRESCRIPTION KNEE HIGH COMPRESSION STOCKIN* Problem List As Of Date 08/09/2017 Noted Resolved Internal Hemorrhoids without Mention of Complic*INVALID FOR*05/05/2010 More... POLYP COLON [D12.6] INVALID FOR* LEG VARICOSITY W INFLAM [I83.10] INVALID FOR* More... Esophageal Reflux [K21.9] INVALID FOR* More... More... Sterilization [Z30.2] INVALID FOR*05/05/2010 Mobley's Esophagus [K22.70] INVALID FOR* Esophagitis, unspecified [K20.9] INVALID FOR*11/03/2016 More... Elevated fasting lipid profile [E78.5] INVALID FOR* More... Closed fracture of shaft of metacarpal bone(s) *INVALID FOR*09/30/2014 Stasis edema [I87.309] INVALID FOR* More... Essential hypertension [I10] INVALID FOR* Osteoarthritis of left knee [M17.12] INVALID FOR* Prescriptions ordered this encounter Disp Refills Start End DOXYCYCLINE MONOHYDRATE 100 MG CAPSU* 30 c* 1 08/09/2017 Class: Print RX Route: ORAL Sig: Take 1 capsule by mouth once daily. Encounter Status:Closed by ЕКАТЕРИНА TATY ANDREW on 08/09/17 ALLERGIES ALLERGIES DATE TYPE / CODE NAME / CODE REACTION SEVERITY SOURCE 04/04/2018 Drug Tetanus Swelling Unknown [facility] Allergy/[facility] 975283(SNOM Toxoid/[id number] Repository ED CT) 19(RXNORM) 11/06/2005 Drug TETANUS [facility] Class/07731 VACCINES AND Main [place] 1003(SNOMED TOXOID Repository CT) ENCOUNTERS ENCOUNTERS ADMIT/DISCHARGE ACCOUNT ADMITTING ENCOUNTER LOCATION SOURCE NUMBER CLASS 07/24/2018/07/26/20 [id number] Ambulatory [address] Repository 07/24/2018/07/24/[id number] Repository 07/24/2018/07/24/[id number] Repository 07/18/2018 [id number] [facility] ing:LAB Repository 07/15/2018/07/16/[id number] Repository 05/04/2018/05/07/[id number] Repository 04/04/2018/04/04/20 [id number] Ambulatory BMSBuilding:[facility] [place] [address] [facility] Repository 03/27/2018/03/28/20 [id number] Jimmy Keyon [address] ing:XW8Bpxp: Repository DE015Jcj: 1 03/27/2018/03/28/20 [id number] Ambulatory BMSBuilding:B R[place] 18 MS.CF[facility] Repository 03/21/2018/03/21/[id number] Repository 03/21/2018/03/22/[id number] Repository 02/28/2018/02/29/20 [id number] Ambulatory BMSBuilding:B R[place] 18 [facility] Repository 12/24/2017 [id number] [facility] Repository 12/14/2017/12/15/[id number] Repository 11/09/2017/11/10/19 [id number] Ambulatory [address] Repository 11/09/2017/11/13/19 [id number] Ambulatory [address] Repository 08/09/2017/08/09/20 [id number] Ambulatory [address] Repository 08/09/2017/08/10/20 [id number] Ambulatory [address] Repository PAYERS PAYERS ENCOUNTER GUARANTOR PAYER SUBSCRIBER SOURCE 07/18/2018 KEVEN Pereira Primary KEVEN Yost [id number] Insurance:AETNA HOSTETLERDOB: [facility] Number: [id number] [id number] Repository [address]Lvp: (330) Date:1097-59-76UD [phone] (HP) [id number] MIKE MCDNOALD [id number]: 07/18/2018 Secondary NOT GIVENUNK [place] Insurance:SELF PAY [facility] Number: Effective Repository Date:2018-07-18 04/04/2018 KEVEN Yost [id number] Insurance:AETNA HOSTETLERDOB: [facility]Policy Number: [id number], [place] [id number] Repository [address]Ioh: (330) Date:0830-13-85VC [phone] (HP) [id number] MIKE MCDONALD [id number]: 04/04/2018 Secondary NOT GIVENUNK Ritika Insurance:SELF PAY [facility] Number: Effective Repository Date:2018-04-04 03/27/2018 KEVEN Yost [id number] Insurance:AETNA [facility]OSTETLERDOB[facility] Number: [id number], [place] [id number] Repository [address]Trv: (330) Date:6792-97-64ME [phone] (HP) [id number] MIKE MCDONALD [phone]: 03/27/2018 Secondary NOT GIVENUNK [place] Insurance:SELF PAY [facility] Number: Effective Repository Date:2018-02-28 03/27/2018 KEVEN Pereira Primary KEVEN Yost [id number] Insurance:AETNA HOSTETLERDOB: [facility] Number: [id number], [place] [id number] Repository [address]Kws: (330) Date:2569-98-31WE [phone] (HP) [id number] MIKE MCDONALD [phone]: 03/27/2018 Secondary NOT GIVENUNK Ritika Insurance:SELF PAY [facility] Number: Effective Repository Date:2018-03-27 02/28/2018 KEVEN Pereira Primary KEVEN Yost [id number] Insurance:AETNAPolicy HOSTETLERDOB: [facility] Number: [id number], [place] [id number] Repository [address]Tta: (330) Date:7319-36-93YZ [phone] (HP) [id number] MIKE MCDONALD [phone]: 02/28/2018 Secondary NOT GIVENUNK Ritika Insurance:SELF PAY [facility] Number: Effective Repository Date:2018-02-14
== END ==
PROVIDERS: Family Provider Internal Medicine; PCP Internal Medicine; Referring Provider Orthopaedic Surgery; Visit Provider Orthopaedic Surgery
DX: Z01.818 Encounter for other preprocedural examination (principal)
CPT/HCPCS: 36415; 80048; 85027; 93005

== ENCOUNTER 2023-03-31 10:29 | Observation (INO) | payer MEDICARE, SELFPAY ==
[2023-03-31] VITALS (10 sets, daily range): BP systolic 134–170; BP diastolic 64–90; PULSE 56–82; RESP 14–20; TEMP 36.2–37.4; O2SAT 93–98; BMI 34.3; BMI 34.0
--- NOTE | 2023-03-31 | GALL_PTH ---
PATIENT: MARICARMEN SONG LOC: MS3 U#:[id number] AGE/SX: 82/M ROOM: KS309 RE03/31/[address]: Dr. Mayank Martin MD : 1940 BED: 1 DIS: 04/01/2023 SPEC #: [id number] RECD: 04/02/23 08:00 STATUS: LESLIE BENAVIDES #: [id number] GABY: 03/31/23 00:[address]: Mayank Martin DEPT: SURGICAL PATHOLOGY RECD BY: Kendrick Aquino ENTERED: 04/02/23 09:08 SP TYPE: JAMES GARCIA DR: Dr. Matthew Cobos MD Tissues: Gallbladder, NOS Procedures: Surgery Specimen Level III HEADER OPERATION: Laparoscopic cholecystectomy with IOC PRE-OP DIAGNOSIS: Acute cholecystitis TISSUE SUBMITTED: Gallbladder MICROSCOPIC DIAGNOSIS Gallbladder, cholecystectomy: Acute and chronic cholecystitis and cholelithiasis. Benign pericystic lymph node. AM:beba 04/03/2023 MICROSCOPIC DESCRIPTION Slides are reviewed. GROSS DESCRIPTION Received is one container labeled with the patient's name and designated gallbladder. The specimen consists of a gallbladder measuring 8.9 x 3.0 x 2.5 cm. The external surface is smooth and glistening. Focally, it is granular, hemorrhagic and contains cautery artifact. The lumen of the gallbladder contains yellow-green mucoid bile and multiple yellow, chalky calculi ranging in size from <0.1 to 0.5 cm in greatest dimension. The mucosa is cobblestoned and without any mass lesions. The gallbladder wall averages 0.3 cm in thickness and is free of mass lesions. Pericystic soft tissue contains a nodule resembling lymph node and measuring 1.0 cm in greatest dimension. Spanish Speaking Nanny sections of the gallbladder and the cystic duct at margin of resection are submitted in one cassette. / AM:beba 04/02/2023 TC:2 CPT: 39565
--- NOTE | 2023-03-31 10:55 | CT_ITS ---
We are attempting to reach an attending provider to discuss findings. An addendum with communication details will be sent when the communication is complete. STUDY: CT ABDOMEN AND PELVIS WITH CONTRAST REASON FOR EXAM: Male, 82 years old. R mid abd pain/tend-started last night RADIATION DOSAGE (If Supplied By Facility): CTDIvol = ( 19.18 ) mGy, DLP = ( 2207.72 ) mGycm TECHNIQUE: Transaxial images were obtained from the dome of the diaphragm to the symphysis pubis without oral contrast. IV 100mL Isovue-300 was administered. Sagittal and coronal images were reconstructed. Individualized dose optimization techniques were used for this CT. COMPARISON: None. FINDINGS: The visualized lung bases are unremarkable. The visualized portions of the heart are within normal limits. Normal liver. Stranding of the fat surrounding the gallbladder worrisome for acute cholecystitis and correlation with right upper quadrant ultrasound is recommended. Normal spleen. Normal pancreas. Normal bilateral adrenal glands. Multiple bilateral small renal cysts. This includes multiple prominent parapelvic cysts of both kidneys. There is a small hiatal hernia. Normal small intestine. There are multiple colonic diverticula consistent with diverticulosis. There is non-visualization of the appendix. There is diffuse atherosclerotic calcification of the abdominal aorta, without a demonstrated aneurysm. Normal inferior vena cava. Normal retroperitoneum. Normal urinary bladder. There is enlargement of the prostate gland. Status post repair of umbilical hernia with mesh. No residual or recurrent hernia. Mild dextroscoliosis lumbar spine with degenerative disc disease. CT/Abdomen/Pelvis W IV Cont ONLY IMPRESSION: 1. Suspect acute cholecystitis. Correlation with right upper quadrant ultrasound is recommended. 2. Small hiatal hernia. 3. Bilateral renal cysts including prominent parapelvic cysts. 4. Sigmoid diverticulosis without diverticulitis. Electronically Signed: Armand Cash MD at 12:21 EDT ,
[2023-03-31 11:06] LABS: Absolute Lymphocyte Count 1.05 X10^3/uL (0.83-4.51); Absolute Neutrophil Count 16.7 X10^3/uL (2.0-7.7); Basophil# 0.03 X10^3/uL; Basophil% 0.2 % (0-1); Eosinophil# 0.04 X10^3/uL; Eosinophils% 0.2 % (0-5); Hematocrit 42.8 % (40-54); Hemoglobin 14.6 g/dL (13.0-16.5); Lymphocyte # 1.05 X10^3/ul (0.83-4.51); Lymphocyte % 5.5 % (19-41); Mean Corp Hgb Conc 34.1 g/dL (32-36); Mean Corpuscular Hgb 29.1 pg (27.0-32.0); Mean Corpuscular Volume 85.4 fL (80-94); Mean Platelet Vol. 9.6 fl (6.2-12.0); Monocyte# 1.23 X10^3/uL; Monocyte% 6.4 % (0-10); NRBC Flagged by Analyzer 0 % (0-5); Neutrophil # 16.69 X10^3/uL (2.7-7.7); Neutrophil % 86.9 % (47-70); Platelet Count 229 K/mm3 (150-450); RBC Distribution Width CV 12.4 % (11.6-14.6); RBC Distribution Width SD 38.4 fl (35.1-43.9); Red Blood Count 5.01 M/mm3 (4.6-6.2); White Blood Count 19.2 K/mm3 (4.4-11.0)
--- NOTE | 2023-03-31 11:14 | ED.VIS.GI ---
HPI HPI - GI History of Present Illness Chief Complaint: Abd Pain Informant: patient Narrative Narrative: Diffuse abdominal pain that started yesterday, now more lower, some nausea but no vomiting. Last bowel movement 2 days ago which is not unusual for him and it was unremarkable at that time without melena, blood, diarrhea or constipation. No fevers or chills. No cough or shortness of breath. No pain into his back. Has had prior herniorrhaphies without bowel resection, and remote appendectomy no other abdominal surgeries that he can recall. [facility] Medical History (Updated 03/31/23 @ 15:[address] Mannie Zhou MD) GERD (gastroesophageal reflux disease) Hyperlipidemia Hypertension Osteoarthritis Home Medications omeprazole 40 mg capsule,delayed release 40 mg PO DINNER 06/27/16 [History Last Taken Unknown] triamterene 37.5 mg-hydrochlorothiazide 25 mg capsule 1 cap PO DAILY BP 06/27/16 [History Last Taken Unknown] atorvastatin 10 mg tablet 10 mg PO QHS CHOLESTEROL 02/28/18 [History Last Taken Unknown] Allergy/AdvReac Type Severity Reaction Status Date / Time Tetanus Vaccines and Toxoid Allergy Swelling Verified 03/31/23 10:32 [Tetanus Vaccines & Toxoid] Family History (System 07/25/21 @ 14:24 by Deya Hebert) Father Heart disease Mother Hypertension Brother Parkinsons disease Surgical History Hx of ventral hernia repair S/P umbilical hernia repair, follow-up exam Status post left knee replacement Social History Smoking Status: Never smoker ROS ROS ED Constitutional Constitutional ED: Denies chills or fever(s) Eyes Eyes: Denies change in vision or diplopia ENT ENT ED: Denies rhinorrhea or sore throat Cardiovascular Cardiovascular: Denies chest pain or palpitations Respiratory/Chest Respiratory/Chest: Denies cough or dyspnea Gastrointestinal Gastrointestinal: Reports abdominal pain and nausea; Denies diarrhea or vomiting Genitourinary Genitourinary ED: Denies dysuria or hematuria Musculoskeletal Musculoskeletal: Denies back pain or neck pain Integumentary Denies abscess or rash Neurologic Neurologic: Denies headache(s), paresthesias or weakness Psychiatric Psychiatric: Denies anxiety or suicidal thoughts EXAM Physical Exam Const Vital Signs: 03/31/23 10:31 Temperature 98 F Temperature Source Temporal Pulse Rate 69 Respiratory Rate 20 H Blood Pressure 167/69 H Blood Pressure Mean 101 Pulse Ox 96 Oxygen Delivery Method Room Air Positive well nourished and well developed General Appearance ED: well developed and NAD HEENT Reports moist mucous membranes normocephalic and atraumatic Eyes PERRL and EOMs intact bilaterally Neck full ROM and supple Resp normal respiratory effort and clear to auscultation bilaterally Cardio regular rate, regular rhythm and no murmurs GI GI Narrative: Tender right mid abdomen, just lateral to the umbilicus. No palpable hernias. No abnormal inspection, but he is distended, soft no guarding or rebound. Auscultation: hypoactive bowel sounds Palpation: soft Back/Spine no CVA tenderness General Back: other FROM Extremity normal to inspection General Extremety ED: Negative for edema, pulses abnormal or tenderness General Extremity: Negative for edema or pulses abnormal Neuro oriented x3, CN's II-XII intact bilaterally and no sensory deficits noted Sensorium / Orientation: awake and alert Motor Exam: strength 5/5 throughout Skin no rashes or lesions noted and no wounds MDM MDM MDM Narrative Medical decision making narrative: Given patient's diffuse pain, and focus on the lower abdomen with tenderness in the middle of the right abdomen, I began with a screening IV contrasted CT, more concerned about a bowel obstruction in this patient with multiple surgeries in the past. Radiology called me, out of concern for acute cholecystitis given the signs of inflammation around the gallbladder. Ultrasound recommended which was then obtained, on multiple occasions I offered analgesics to the patient which she declined, but we did give him some fluids and nausea medication. He has a significant leukocytosis of 19.2, but he does not have any elevation of bilirubin or lipase or other liver enzymes at this time. I reexamined him, he is not tender subcostal but a little more caudal to this he is tender. Given these findings and his age I do suspect acute cholecystitis is probably causing this pain, I discussed with Dr. Mario Messer, who is agreeable to admit him and agrees with starting Zosyn. Lab Data Attestation: I reviewed the patient's lab results. Labs: Laboratory Results - last 24 hr 03/31/23 03/31/23 10:50 12:01 WBC 19.2 H RBC 5.01 Hgb 14.6 Hct 42.8 MCV 85.4 MCH 29.1 MCHC 34.1 RDW Std Deviation 38.4 RDW Coeff of Isamar 12.4 Plt Count 229 MPV 9.6 Immature Gran % (Auto) 0.800 Neut % (Auto) 86.9 H Lymph % (Auto) 5.5 L [place] % (Auto) 6.4 Eos % (Auto) 0.2 Baso % (Auto) 0.2 Absolute Neuts (auto) 16.7 H Absolute Lymphs (auto) 1.05 Nucleated RBC % 0 Sodium 137 Potassium 3.7 Chloride 105 Carbon Dioxide 25.0 Anion Gap 7 BUN 23 H Creatinine 1.21 Estim Creat Clear Calc 46.32 Est GFR (MDRD) Af Amer 74 Est GFR (MDRD) Non-Af 61 BUN/Creatinine Ratio 19.0 Glucose 145 H Calcium 9.0 Total Bilirubin 0.90 AST 18 ALT 26 Alkaline Phosphatase 95 Total Protein 7.6 Albumin 3.8 Globulin 3.8 Albumin/Globulin Ratio 1.0 Lipase 23 Urine Color Yellow Urine Clarity Clear Urine pH 6.0 Ur Specific [place] 1.010 Urine Protein Negative Urine Glucose (UA) Normal Urine Ketones Negative Urine Occult Blood Negative Urine Nitrite Negative Urine Bilirubin Negative Urine Urobilinogen Normal Ur Leukocyte Esterase Negative Urine RBC 0 SEEN Urine WBC 0 SEEN Ur Squamous Epith Cells 0 SEEN Urine Bacteria 0 SEEN Urine Mucus 0 SEEN Radiography Diagnostic Testing: Clinical Impression(s) from Imaging Studies Abdomen/Pelvis CT 03/31/23 10:55 IMPRESSION: 1. Suspect acute cholecystitis. Correlation with right upper quadrant ultrasound is recommended. 2. Small hiatal hernia. 3. Bilateral renal cysts including prominent parapelvic cysts. 4. Sigmoid diverticulosis without diverticulitis. Electronically Signed: Armand Cash MD at 12:21 EDT , ADDENDUM: 03/31/23 123 IMPRESSION: 1. Suspect acute cholecystitis. Correlation with right upper quadrant ultrasound is recommended. 2. Small hiatal hernia. 3. Bilateral renal cysts including prominent parapelvic cysts. 4. Sigmoid diverticulosis without diverticulitis. N.B. : The above Results were Read Back by Armand Cash MD to Mannie Zhou MD, and understanding confirmed on 03/31/2023 12:29:46 (ET). Electronically Signed: Armand Cash MD at 12:21 EDT , CT and ultrasound: I reviewed the images and the report and I agree with them. Rhythm Strip Rhythm Strip: Sinus Rhythm Rate: 70 Ectopy: None EKG Initial EKG: Attestation: I personally reviewed and interpreted this EKG as follows: Interpretation: Sinus Rhythm and No Acute Injury Pattern Management Discussion w/another healthcare provider: Top Precipitator Operator Helper (Surgery) and Radiologist Discharge Plan Dx/Rx/DC Orders Clinical Impression: Acute calculous cholecystitis Disposition Disposition: Acute Care Hospital [facility]
[2023-03-31] MEDS: Ondansetron 4 MG/2 ML Vial IV (11:17)
[2023-03-31 11:22] LABS: AST(SGOT) 18 U/L (15-37); Alanine Aminotransfer ALT/SGPT 26 U/L (16-61); Albumin, Serum 3.8 g/dL (3.2-5.0); Alkaline Phosphatase 95 U/L (45-117); Anion Gap 7 (5-15); BUN 23 mg/dL (7-18); Chloride 105 mmol/L (98-107); Creatinine, Serum 1.21 mg/dL (0.70-1.30); EST Glomerular Filtration Rate 61 mL/min (>60); Est Glom Filt Rate - Afr Amer 74 mL/min (>60); Estimated Creatinine Clearance 46.32 ml/min; Globulin 3.8 g/dL (2.2-4.2); Glucose 145 mg/dL (74-106); Potassium 3.7 mmol/L (3.5-5.1); Protein, Total 7.6 g/dL (6.4-8.2); Sodium Level 137 mmol/L (136-145)
[2023-03-31] MEDS: 0.9% Normal Saline 1,000 ML 125 ML IV (11:28)
--- NOTE | 2023-03-31 12:39 | US_ITS ---
We are attempting to reach an attending provider to discuss findings. An addendum with communication details will be sent when the communication is complete. STUDY: ABDOMINAL ULTRASOUND - RIGHT UPPER QUADRANT REASON FOR VISIT: Male, 82 years old abdomen pain, abn CT TECHNIQUE: Ultrasound evaluation of the right upper quadrant was performed with real-time and static hagan-scale imaging. TECHNICAL QUALITY: Adequate. COMPARISON: CT earlier today FINDINGS: Liver: The liver measures 16.8 cm. There is increased echogenicity consistent with fatty infiltration. The bile ducts are within normal limits. There is hepatic color flow. The direction of portal flow is hepatopetal. There is no demonstrated mass lesion. Gallbladder: Normal distended gallbladder. The gallbladder wall measures 4 mm. There is a positive sonographic Krueger''s sign. There is no pericholecystic fluid. There are multiple echogenic structures within the gallbladder, consistent with multiple gallstones. Common Bile Duct (C.B.D.): The common bile duct is not visualized. Pancreas: Normal size of the head, body and tail of the pancreas. There is normal echogenicity of the pancreas. There is no demonstrated pancreatic mass or cyst. Right Kidney: Normal size of the right kidney. The right kidney measures 11.4 cm. Normal renal cortex. The right cortex measures 1. cm. 2.4 cm cyst in the midsection of right kidney. There is no right hydronephrosis. US/Abdomen Limited IMPRESSION: Suspect acute cholecystitis with cholelithiasis, thickened edematous gallbladder wall, and positive sonographic Krueger''s sign. Electronically Signed: Armand Cash MD at 15:15 EDT ,
[2023-03-31 12:47] LABS: Bacteria 0 SEEN /hpf (None Seen); Mucous, Urine 0 SEEN /hpf (<or=2+); Red Blood Cells-Urine 0 SEEN /hpf (0-5); Squamous Epithelial Cells - UA 0 SEEN /hpf (0-5); White Blood Cells 0 SEEN /hpf (0-5)
[2023-03-31 12:48] LABS: Color, Urine Yellow (Yellow); Glucose, Dipstick Normal (Normal); Ketone-Dipstick Negative (Negative); Leukocyte Esterase-Dipstick Negative /ul (Negative); Nitrite-Dipstick Negative (Negative); Occult Blood-Urine Negative /ul (Negative); Protein-Dipstick Negative (Negative); Urine Bilirubin Dipstick Negative (Negative); Urine Clarity Clear (Clear); Urine Urobilinogen Normal (Normal)
[2023-03-31 12:55] LABS: Lipase 23 U/L (13-75)
--- NOTE | 2023-03-31 13:28 | NURSING ---
MED SURG [facility] ACUTE CHOLECYSTITIS
--- NOTE | 2023-03-31 14:13 | EKG12_ITS ---
Test Reason : PRE OP Blood Pressure : / mmHG Vent. Rate : 054 BPM Atrial Rate : 054 BPM P-R Int : 184 ms QRS Dur : 090 ms QT Int : 434 ms P-R-T Axes : 002 -12 016 degrees QTc Int : 411 ms Sinus bradycardia with occasional Premature ventricular complexes Otherwise normal ECG Confirmed by NIMISHA ROBLES, JOSE RAFAEL ([id number]), film editor supervisor ZACHARIAH HENLEY ([id number]) on 04/02/2023 8:55:17 AM Referred By: RANCHO Confirmed By:ELLEN BANSAL MD
--- NOTE | 2023-03-31 14:24 | PCM.HP.STD ---
HPI - General General Date of Admission: 03/31/23 HPI Narrative MARICARMEN SONG, is a 82 M who presents with abdominal pain. Patient reports that he had abdominal pain which started yesterday. He thought it was getting better but then got worse. He does have some nausea but no vomiting. He denies fevers or chills. [facility] Medical History (Updated 03/31/23 @ 13:[address] Mannie Zhou MD) GERD (gastroesophageal reflux disease) Hyperlipidemia Hypertension Osteoarthritis Home Medications omeprazole 40 mg capsule,delayed release 40 mg PO DINNER 06/27/16 [History Last Taken Unknown] triamterene 37.5 mg-hydrochlorothiazide 25 mg capsule 1 cap PO DAILY BP 06/27/16 [History Last Taken Unknown] atorvastatin 10 mg tablet 10 mg PO QHS CHOLESTEROL 02/28/18 [History Last Taken Unknown] Allergy/AdvReac Type Severity Reaction Status Date / Time Tetanus Vaccines and Toxoid Allergy Swelling Verified 03/31/23 10:32 [Tetanus Vaccines & Toxoid] Family History (System 07/25/21 @ 14:24 by Deya Hebert) Father Heart disease Mother Hypertension Brother Parkinsons disease Surgical History Hx of ventral hernia repair S/P umbilical hernia repair, follow-up exam Status post left knee replacement Social History Smoking Status: Never smoker ROS Constitutional Constitutional: Denies anorexia, fatigue or fever(s) Eyes Eyes: Denies blurry vision ENT HEENT: Denies abnormal hearing Cardiovascular Cardiovascular: Denies chest pain or chest pain at rest Respiratory/Chest Respiratory/Chest: Denies cough or dyspnea Gastrointestinal Gastrointestinal: Reports abdominal pain and nausea; Denies diarrhea, dysphagia or vomiting Genitourinary Genitourinary: Denies change in urinary stream Musculoskeletal Musculoskeletal: Denies abnormal gait Integumentary Integumentary: Denies jaundice Neurologic Neurologic: Denies abnormal gait Vital Signs Vital Signs Vital Signs: 03/31/23 10:31 Temperature 98 F Temperature Source Temporal Pulse Rate 69 Respiratory Rate 20 H Blood Pressure 167/69 H Blood Pressure Mean 101 Pulse Ox 96 Oxygen Delivery Method Room Air Weight Weight: 226 lb Body Mass Index (BMI) 34.3 Physical Exam Const oriented x3 Resp normal respiratory effort Cardio regular rate and regular rhythm GI soft to palpation Palpation: tender RUQ Extremity normal to inspection Results Lab / Micro Data 03/31/23 10:50 03/31/23 10:50 Labs: Laboratory Results - last 24 hr 03/31/23 10:50: WBC 19.2 H, RBC 5.01, Hgb 14.6, Hct 42.8, MCV 85.4, MCH 29.1, MCHC 34.1, RDW Std Deviation 38.4, RDW Coeff of Isamar 12.4, Plt Count 229, MPV 9.6, Immature Gran % (Auto) 0.800, Neut % (Auto) 86.9 H, Lymph % (Auto) 5.5 L, [place] % (Auto) 6.4, Eos % (Auto) 0.2, Baso % (Auto) 0.2, Absolute Neuts (auto) 16.7 H, Absolute Lymphs (auto) 1.05, Nucleated RBC % 0, Sodium 137, Potassium 3.7, Chloride 105, Carbon Dioxide 25.0, Anion Gap 7, BUN 23 H, Creatinine 1.21, Estim Creat Clear Calc 46.32, Est GFR (MDRD) Af Amer 74, Est GFR (MDRD) Non-Af 61, BUN/Creatinine Ratio 19.0, Glucose 145 H, Calcium 9.0, Total Bilirubin 0.90, AST 18, ALT 26, Alkaline Phosphatase 95, Total Protein 7.6, Albumin 3.8, Globulin 3.8, Albumin/Globulin Ratio 1.0, Lipase 23 03/31/23 12:01: Urine Color Yellow, Urine Clarity Clear, Urine pH 6.0, Ur Specific [place] 1.010, Urine Protein Negative, Urine Glucose (UA) Normal, Urine Ketones Negative, Urine Occult Blood Negative, Urine Nitrite Negative, Urine Bilirubin Negative, Urine Urobilinogen Normal, Ur Leukocyte Esterase Negative, Urine RBC 0 SEEN, Urine WBC 0 SEEN, Ur Squamous Epith Cells 0 SEEN, Urine Bacteria 0 SEEN, Urine Mucus 0 SEEN Radiology Impression Abdomen/Pelvis CT 03/31/23 10:55 IMPRESSION: 1. Suspect acute cholecystitis. Correlation with right upper quadrant ultrasound is recommended. 2. Small hiatal hernia. 3. Bilateral renal cysts including prominent parapelvic cysts. 4. Sigmoid diverticulosis without diverticulitis. Electronically Signed: Armand Cash MD at 12:21 EDT , ADDENDUM: 03/31/23 1236 IMPRESSION: 1. Suspect acute cholecystitis. Correlation with right upper quadrant ultrasound is recommended. 2. Small hiatal hernia. 3. Bilateral renal cysts including prominent parapelvic cysts. 4. Sigmoid diverticulosis without diverticulitis. N.B. : The above Results were Read Back by Armand Cash MD to Mannie Zhou MD, and understanding confirmed on 03/31/2023 12:29:46 (ET). Electronically Signed: Armand Cash MD at 12:21 EDT , Assessment & Plan Assessment/Plan (1) Acute cholecystitis: PLAN: The patient has right upper quadrant pain and CT scan showed inflammation around the gallbladder. Ultrasound confirmed this and the presence of gallstones. Patient has a significantly elevated white count. Patient has acute cholecystitis and I recommended laparoscopic cholecystectomy. I discussed the procedure in detail with the patient. I discussed the risks, benefits, and alternatives of the procedure. I discussed the risks including but not limited to bleeding, infection, injury to surrounding organs such as the liver, bile duct, bowels. I did discuss the possibility of having to convert to an open procedure as well as the possibility that if any injuries occurred this may necessitate further surgery at a tertiary care center. Mayank Martin MD Pager: [facility] [address] [place] [address], [address] [place] [address] Office:
[2023-03-31] MEDS: Morphine 4 MG/ML Syringe IV (14:37)
[2023-03-31] MEDS: Lactated Ringers 1,000 ML 100 ML IV (16:37)
[2023-03-31] MEDS: Bupivacaine 0.25% 30 ML Vial (16:50)
--- NOTE | 2023-03-31 16:50 | RAD_ITS ---
CLINICAL HISTORY: Male, 82 years old. Right upper quadrant pain PROCEDURE: CHOLANGIOGRAM - intraoperative FLUOROSCOPY TIME (if supplied): (0.23) minutes/seconds Placement of the catheter and the procedure were performed by: Operating surgeon Fluoroscopy was provided by radiology rn, who was present in the room time of the procedure. TECHNIQUE: ( Intraoperative cholangiogram was performed by operating surgeon in the anterior projection. 42 fluoroscopic guided images were obtained during the study to document findings during the procedure. For more complete information recommend correlation with surgical notes RAD/Cholangiogram/ O R,Initial IMPRESSION: Intraoperative cholangiogram Electronically Signed: Yeison Valle MD at 22:32 EDT ,
--- NOTE | 2023-03-31 17:49 | OP.PCM_ITS ---
Report of Operation Date of Procedure: 03/31/23 Pre-Operative Diagnosis: Acute cholecystitis Post-Operative Diagnosis: Acute cholecystitis Surgery/Procedure Performed:: Laparoscopic cholecystectomy with cholangiogram Description of Surgical Findings:: Very inflamed gallbladder Type of Anesthesia: General/Regional Specimen's removed: Gallbladder Estimated Blood Loss (mL): 200 Description of Procedure: Patient was brought back to the operating room and general anesthesia was induced. The abdomen was prepped and draped in usual sterile fashion. Due to the patient's midline hernia repairs an area in the right upper quadrant was selected and a small incision was made. Using Visiport technique the abdomen was entered and insufflated to 15 mmHg. Next under direct visualization a right upper quadrant 5 mm port was placed. An area superior to the mesh was selected and a larger incision was made and a 12 mm trocar was placed into this area. Next an epigastric 5 mm port was placed under direct visualization. Patient was placed in reverse Trendelenburg position and the gallbladder was identified and aspirated. The gallbladder was then elevated toward the right upper quadrant and there were dense adhesions from all the intra-abdominal fat to the gallbladder wall. This was taken down bluntly until the infundibulum was reached. Next the cystic duct and cystic artery were identified. There was an avulsion of the liver capsule lateral to the gallbladder which was bleeding. Argon beam coagulation was used to control the bleeding. Next cholangiograms were performed. The Bobby clamp was placed across the infundibulum and the needle was placed into the gallbladder. It was flushed with saline and then the patient was placed in flat position. Cholangiograms were performed and there was good filling of the gallbladder and cystic duct and common bile duct with good filling proximally and distally and no filling defects. The contrast freely entered the small bowel. Next the clamp was removed and 3 clips were placed across the cystic duct and was divided. Next 3 clips were placed across the cystic artery and it was divided as well. Electrocautery was used to take the gallbladder off the gallbladder fossa. It was placed into an Endo Catch bag. Next the right upper quadrant was irrigated and suctioned and argon beam coagulation was used on the liver bed and the liver avulsion to control bleeding and then Surgicel powder was sprayed over the entire liver bed surface and there appeared to be good hemostasis. The abdomen was suctioned and the patient was placed flat. The camera was moved to the right upper quadrant incision and the 12 m port was removed. The bag was removed through this incision. Under direct visualization using the Omni close and 0 Vicryl suture the fascia was reapproximated including the superior portion of the mesh. Next the subcutaneous tissue was irrigated and suctioned dry. All the incisions were injected with local anesthetic and then all the incisions were closed with interrupted 4-0 Monocryl suture. Steri-Strips and bandages were applied. Willem alvarado was then awoken and taken to PACU in stable condition. Admit VTE Documentation VTE Mechan Device Prophylaxis: SCD's
[2023-03-31] MEDS: Lactated Ringers 1,000 ML 15 ML IV (18:12)
[2023-04-01] MEDS: Lactated Ringers 1,000 ML 100 ML IV (02:14)
[2023-04-01] MEDS: oxyCODONE 5 MG Tablet PO (02:17)
[2023-04-01 05:32] LABS: Absolute Lymphocyte Count 0.82 X10^3/uL (0.83-4.51); Absolute Neutrophil Count 11.1 X10^3/uL (2.0-7.7); Basophil# 0.01 X10^3/uL; Basophil% 0.1 % (0-1); Hematocrit 37.2 % (40-54); Hemoglobin 12.4 g/dL (13.0-16.5); Lymphocyte # 0.82 X10^3/ul (0.83-4.51); Lymphocyte % 6.5 % (19-41); Mean Corp Hgb Conc 33.3 g/dL (32-36); Mean Corpuscular Hgb 29.2 pg (27.0-32.0); Mean Corpuscular Volume 87.7 fL (80-94); Monocyte# 0.73 X10^3/uL; Monocyte% 5.8 % (0-10); NRBC Flagged by Analyzer 0 % (0-5); Neutrophil # 11.06 X10^3/uL (2.7-7.7); Neutrophil % 87.2 % (47-70); Platelet Count 173 K/mm3 (150-450); RBC Distribution Width CV 12.7 % (11.6-14.6); RBC Distribution Width SD 40.6 fl (35.1-43.9); Red Blood Count 4.24 M/mm3 (4.6-6.2); White Blood Count 12.7 K/mm3 (4.4-11.0)
[2023-04-01 05:50] VITALS: BP 135/63; PULSE 61; RESP 18; TEMP 36.6; O2SAT 98
[2023-04-01 05:57] LABS: Anion Gap 5 (5-15); BUN 19 mg/dL (7-18); BUN/Creat Ratio 16.7 RATIO (10-20); Calcium,Total 8.3 mg/dL (8.5-10.1); Chloride 109 mmol/L (98-107); Creatinine, Serum 1.14 mg/dL (0.70-1.30); EST Glomerular Filtration Rate 65 mL/min (>60); Est Glom Filt Rate - Afr Amer 79 mL/min (>60); Estimated Creatinine Clearance 49.17 ml/min; Glucose 156 mg/dL (74-106); Sodium Level 140 mmol/L (136-145)
--- NOTE | 2023-04-01 08:40 | PCM.PN.SRG ---
Subjective Subjective Patient reports he is passing some flatus. He feels comfortable this morning. Denies any nausea or vomiting Objective Data Objective Data Vital Signs: Vital Signs Temp Pulse Resp BP Pulse Ox O2 Del Method O2 Flow Rate 97.8 F 61 18 135/63 H 98 Nasal Cannula 2 04/01/23 05:50 04/01/23 05:50 04/01/23 05:50 04/01/23 05:50 04/01/23 05:50 04/01/23 05:50 04/01/23 05:50 Oxygen Flow Rate (L/min) 2 Oxygen Delivery Method Nasal Cannula Weight: 492 lb 11.73 oz Body Mass Index (BMI) 34.0 Intake & Output: Intake and Output for Last 24 Hours 03/30/23 03/31/23 04/01/23 23:59 23:59 23:59 Intake Total 2050 / 2170 240.5 / 240.5 Output Total 300 / 300 Balance 1750 / 1870 240.5 / 240.5 Lab / Micro Data 04/01/23 05:20 04/01/23 05:20 Labs: Laboratory Results - last 24 hr 03/31/23 10:50: WBC 19.2 H, RBC 5.01, Hgb 14.6, Hct 42.8, MCV 85.4, MCH 29.1, MCHC 34.1, RDW Std Deviation 38.4, RDW Coeff of Isamar 12.4, Plt Count 229, MPV 9.6, Immature Gran % (Auto) 0.800, Neut % (Auto) 86.9 H, Lymph % (Auto) 5.5 L, [place] % (Auto) 6.4, Eos % (Auto) 0.2, Baso % (Auto) 0.2, Absolute Neuts (auto) 16.7 H, Absolute Lymphs (auto) 1.05, Nucleated RBC % 0, Sodium 137, Potassium 3.7, Chloride 105, Carbon Dioxide 25.0, Anion Gap 7, BUN 23 H, Creatinine 1.21, Estim Creat Clear Calc 46.32, Est GFR (MDRD) Af Amer 74, Est GFR (MDRD) Non-Af 61, BUN/Creatinine Ratio 19.0, Glucose 145 H, Calcium 9.0, Total Bilirubin 0.90, AST 18, ALT 26, Alkaline Phosphatase 95, Total Protein 7.6, Albumin 3.8, Globulin 3.8, Albumin/Globulin Ratio 1.0, Lipase 23 03/31/23 12:01: Urine Color Yellow, Urine Clarity Clear, Urine pH 6.0, Ur Specific [place] 1.010, Urine Protein Negative, Urine Glucose (UA) Normal, Urine Ketones Negative, Urine Occult Blood Negative, Urine Nitrite Negative, Urine Bilirubin Negative, Urine Urobilinogen Normal, Ur Leukocyte Esterase Negative, Urine RBC 0 SEEN, Urine WBC 0 SEEN, Ur Squamous Epith Cells 0 SEEN, Urine Bacteria 0 SEEN, Urine Mucus 0 SEEN 04/01/23 05:20: WBC 12.7 H, RBC 4.24 L, Hgb 12.4 L, Hct 37.2 L, MCV 87.7, MCH 29.2, MCHC 33.3, RDW Std Deviation 40.6, RDW Coeff of Isamar 12.7, Plt Count 173, MPV 10.0, Immature Gran % (Auto) 0.400, Neut % (Auto) 87.2 H, Lymph % (Auto) 6.5 L, [place] % (Auto) 5.8, Eos % (Auto) 0.0, Baso % (Auto) 0.1, Absolute Neuts (auto) 11.1 H, Absolute Lymphs (auto) 0.82 L, Nucleated RBC % 0, Sodium 140, Potassium 4.0, Chloride 109 H, Carbon Dioxide 26.0, Anion Gap 5, BUN 19 H, Creatinine 1.14, Estim Creat Clear Calc 49.17, Est GFR (MDRD) Af Amer 79, Est GFR (MDRD) Non-Af 65, BUN/Creatinine Ratio 16.7, Glucose 156 H, Calcium 8.3 L Radiography Diagnostic Testing: Radiology Impression Abdomen/Pelvis CT 03/31/23 10:55 IMPRESSION: 1. Suspect acute cholecystitis. Correlation with right upper quadrant ultrasound is recommended. 2. Small hiatal hernia. 3. Bilateral renal cysts including prominent parapelvic cysts. 4. Sigmoid diverticulosis without diverticulitis. Electronically Signed: Armand Cash MD at 12:21 EDT , ADDENDUM: 03/31/23 1236 IMPRESSION: 1. Suspect acute cholecystitis. Correlation with right upper quadrant ultrasound is recommended. 2. Small hiatal hernia. 3. Bilateral renal cysts including prominent parapelvic cysts. 4. Sigmoid diverticulosis without diverticulitis. N.B. : The above Results were Read Back by Armand Cash MD to Mannie Zhou MD, and understanding confirmed on 03/31/2023 12:29:46 (ET). Electronically Signed: Armand Cash MD at 12:21 EDT Reading Location ID and State: [id number] / [employer] , Service support , Abdomen Ultrasound 03/31/23 12:39 IMPRESSION: Suspect acute cholecystitis with cholelithiasis, thickened edematous gallbladder wall, and positive sonographic Krueger''s sign. Electronically Signed: Armand Cash MD at 15:15 EDT , ADDENDUM: 03/31/23 1542 IMPRESSION: Suspect acute cholecystitis with cholelithiasis, thickened edematous gallbladder wall, and positive sonographic Krueger''s sign. N.B. : The above Results were Read Back by Armand Cash MD to Mannie Zhou MD, and understanding confirmed on 03/31/2023 15:35:38 (ET). Electronically Signed: Armand Cash MD at 15:15 EDT , Cholangiogram 03/31/23 16:50 IMPRESSION: Intraoperative cholangiogram Electronically Signed: Yeison Valle MD at 22:32 EDT , Rhythm Strip Rhythm Strip: Sinus Rhythm Rate: 70 Ectopy: None Physical Exam Const oriented x3 Resp normal respiratory effort Cardio regular rate and regular rhythm GI soft to palpation Palpation: tender RUQ Assessment & Plan Assessment/Plan (1) Acute calculous cholecystitis: PLAN: Patient is doing well for laparoscopic cholecystectomy. He is having clear liquids for breakfast. If he tolerates that he may advance to regular diet for lunch and if he tolerates that I will discharge him home. Mayank Martin MD Pager: [facility] [address] [place] [address] [address] [place] [address] Office:
--- NOTE | 2023-04-01 08:41 | DCINST_ITS ---
Discharge Instructions Procedure Gallbladder Diet Discharge Diet: Light diet - advance as tolerated Activity Discharge Activity: May Not Drive (for 2-3 days or while taking narcotic pain medications.) and - (Do not drive, work heavy equipment or sign legal documents for 24 hours.) May shower in (days): 1 Lifting Restrictions: 20 lbs for 2 weeks Additional Activity Instructions:: Pain medication may cause nausea. You should typically eat light foods as you take your pain medications. Pain medication may also cause constipation. If this is a problem for you, please discuss with your doctor. Dressing / Incision Call your doctor if your incision/area has: Continuous Slow Oozing, Sudden Increased Bleeding, Increased Pain/ Swelling, Increased Redness and Foul Smelling Discharge Call your doctor if you observe: Fever of 101 or Higher Suture Line Care: Avoid Pulling/Pushing and Avoid Pinching/Bending Remove Dressing in: 2 days Additional Dressing/Incision Instructions:: Leave operative bandaids on for 2 days. When you remove dressing, leave Steri-Strips on until your follow-up appointment, or until the Steri-Strips fall off on their own. Follow Up Care Please Follow Up With: Mayank Martin MD When: Please call to schedule 2 week follow up appointment. [phone] Test Results: Test results from this visit will be discussed in further detail at your follow- up appointment, if applicable. Discharge Plan Admission Admit Date/Time: 03/31/23 14:33 Attending Provider: Mayank Martin Primary Care Provider: Matthew Cobos Discharge Orders/Prescriptions Prescriptions: New acetaminophen 325 mg Tablet 650 mg PO Q4H PRN PRN (Reason: Pain Or Fever) Qty: 0 0RF oxycodone 5 mg Tablet 5 - 10 mg PO Q4H PRN PRN (Reason: Pain Score 4-10) 5 Days Qty: 20 0RF Continued atorvastatin 10 mg tablet 10 mg PO QHS omeprazole 40 MG capsule 40 mg PO DINNER triamterene-hydrochlorothiazid 1 CAP capsule 1 cap PO DAILY Patient Comments: WATER PILL amlodipine 2.5 mg tablet Referrals / Follow Up: Matthew Cobos MD [Primary Care Provider] - Disposition Disposition (needs filled in before D/C Order can be placed): Home, Self Care
[2023-04-01 09:06] VITALS: BP 128/52; PULSE 58; RESP 18; TEMP 36.5; O2SAT 93
[2023-04-01] MEDS: Acetaminophen 325 MG Tablet 650 MG PO (12:19)
[2023-04-01 12:50] VITALS: BP 137/60; PULSE 58; RESP 16; TEMP 36.4; O2SAT 94
== END 2023-04-01 12:55 | disposition home or self-care (01) ==
LOC: ED 13:18 → MS3 14:12
PROVIDERS: Admitting Provider Surgery; Emergency Provider Emergency Medicine; PCP Internal Medicine; Visit Provider Surgery
PROC: (CPT 47610; principal; 2023-03-31 16:45)
DX: K80.12 Calculus of gallbladder with acute and chronic cholecystitis without obstruction (principal); E78.5 Hyperlipidemia, unspecified; I10 Essential (primary) hypertension; K21.9 Gastro-esophageal reflux disease without esophagitis; Z79.899 Other long term (current) drug therapy
CPT/HCPCS: 47563; 00790; 36415; 74177; 74300; 76000; 76705; 80048; 80053; 81001; 83690; 85025; 88304; 93005; 96361; 96365; 96366; 96375; 99221; 99284; J7030; J7120; Q9967; A4216; G0378; J2405